=== PATIENT | male | born 1935 | race Caucasian/White ===

== ENCOUNTER 2020-03-18 07:29 | Inpatient (IN) | payer MEDICARE, SELFPAY ==
[2020-03-18] VITALS (76 sets, daily range): BP systolic 96–195; BP diastolic 42–89; PULSE 45–74; RESP 13–30; TEMP 36.6; O2SAT 90–99; BMI 26.4
--- NOTE | 2020-03-18 07:33 | XR_ITS ---
WS: [id number] Exam: XR chest 1V portable [id number] Date/Time of Exam: 03/18/2020 7:50 AM Reason For Exam: syncope No priors. The lungs are clear and fully expanded. Normal cardiomediastinal structures and bony elements for moraima hnique. Monitoring leads superimpose the chest. No pleural effusions. XR/XR chest 1V portable [id number] IMPRESSION: 1. No acute cardiopulmonary finding.
--- NOTE | 2020-03-18 07:33 | ECG_ITS ---
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 Measurements Intervals [place] Rate: 49 P: [place]: QRS: 84 QRSD: 160 T: -42 QT: 463 QTc: 419 Interpretive Statements SINUS RHYTHM COMPLETE HEART BLOCK INTRAVENTRICULAR CONDUCTION DELAY [130+ ms QRS DURATION] ST ELEVATION, CONSIDER INFERIOR INJURY [MARKED ST ELEVATION W/O NORMALLY INFLECTED T WAVE IN II/aVF] ACUTE MS No previous ECG available for comparison Electronically Signed On 03-18-2020 21:25:56 DIRECTOR NURSERY SCHOOL by Charleen Zuniga M.D. [id number] f
[2020-03-18] MEDS: heparin 5,000 unit/mL INJ 1 mL 4000 UNIT IV (07:39)
--- NOTE | 2020-03-18 07:39 | XACV_ITS ---
Ht: 180 cm Wt: 86 kg BSA: 2.09 m2 Gender: Male : 1935 Any Known Allergies: Penicillins Exam Priority: Routine Procedure(s): Procedure Description: Diagnostic procedure Procedure Description: PCI procedure Procedure Description: Drug Eluting Coronary Stent Procedure Description: PTCA Procedure Description: Miscellaneous Procedure Description: ACT Procedure Description: Coronary Angiography Diagnostic Cath Status: Emergency Diagnostic Findings * Left main artery arises from left coronary cusp. * It has distal left main 80% severe stenosis. Significant dampening of pressures with engagement of catheter. LM: Severe 80% stenosis, GUSTAVO: 3 flow. * LAD arises from left main artery.pLAD: Moderate 70% stenosis, GUSTAVO: 3 flow. Mid to distal vessel is free of significant disease.. * Left circumflex artery arises from left main artery. It has a proximal * 80% stenosis. pCIRC: Severe 80% stenosis, GUSTAVO: 3 flow. * Ramus/high OM: Moderate 70% stenosis, GUSTAVO: 3 flow. * Right coronary artery arises from right coronary cusp. * It is culprit vessel for acute ST elevation [place]. There is thrombotic occlusion of proximal to mid RCA. An old mid RCA stent is seen. Ostial to proximal RCA has 80% stenosis. . * Coronary angiography shows right dominance. PCI Status: Emergency PCI Indication: STEMI - Immediate PCI for STEMI Interventional Findings * IV heparin was administered to maintain an ACT above 250 seconds. Engaged the RCA with 6 Kiswahili JR4 guide catheter. 0.014 run-through guidewire was used to cross the proximal to mid RCA thrombotic occlusion. We used a 2.5 x 8 mm semicompliant balloon to predilate the stenosis. This was followed by placement of 3.0 x 26 mm drug-eluting stent from proximal to mid RCA. There was some residual severe in-stent restenosis in the prior mid RCA stent. A second 3.0 x 18 mm drug-eluting stent was placed from ostial to proximal RCA, overlapping with the first stent. This was postdilated using 3.0x6 mm NC balloon. The in-stent restenosis in the old mid RCA stent was treated by post dilation with 2.5 x 8 mm semicompliant balloon as the NC balloon could not cross. At this time final angiogram was performed that showed excellent stent expansion, no residual stenosis and GUSTAVO-3 flow.. * Proximal Right Coronary Artery to Mid Right Coronary Artery: 80% stenosis treated with MDT R DILLON 3.0X18 NARCISO and MDT NC EUPHORA RX [id number] BALLOON. 0% residual stenosis, GUSTAVO: 3 flow. * Mid Right Coronary Artery: 100% stenosis treated with AB TREK 2.50X8 RX BALLOON and MDT R DILLON 3.0X26 NARCISO. 0% residual stenosis, GUSTAVO: 3 flow. Conclusions 1. There is severe coronary artery disease with multivessel disease. He has residual severe coronary artery disease and left main artery, LAD, left circumflex and ramus artery.. 2. Proximal Right Coronary Artery to Mid Right Coronary Artery (culprit for acute ST elevation [place] )was treated with Drug Eluting Stent and Balloon. 3. Mid Right Coronary Artery was treated with Balloon and Drug Eluting Stent. Recommendations * Admit to CSU. * Order echocardiogram. * Continue aspirin and Plavix. * High intensity statin, and lisinopril. * Continue IV fluids. * Patient has severe residual coronary artery disease in left main, LAD, left circumflex and ramus artery. He will need evaluation for coronary artery bypass surgery. We will get the evaluation and ideally the surgery as inpatient given severity of his coronary artery disease. Interventional RX Recommendation: PCI w/o planned CABG Diagnostic RX Recommendation: PCI w/o planned CABG Anticoagulation: Heparin Pressures Phase:Rest AO : 133 / 53 ( 81 ) @ 2:03:00 AM 114 / 35 ( 64 ) @ 2:08:00 AM 136 / 68 ( 97 ) @ 2:10:00 AM 107 / 46 ( 68 ) @ 2:15:00 AM 147 / 66 ( 101 ) @ 2:17:00 AM 126 / 57 ( 85 ) @ 2:24:00 AM 123 / 44 ( 79 ) @ 2:30:00 AM 131 / 64 ( 93 ) @ 2:32:00 AM 104 / 37 ( 63 ) @ 2:42:00 AM Clinical Evaluation EBL: 5mL-10mL Procedural Details Procedure Consent Obtained. Pre-Procedure Time Out. Identified patient by full name and date of as verbalized by the patient/guarantor. Does the consent match the physician's order: N/A Emergent. Accurate & Complete Informed Consent: N/A Emergent. Inpatient/Outpatient History & Physical on Chart: N/A Emergent. If H&P is completed, is and addenduem needed: N/A Emergent; If yes, is the addendum complete: N/A Emergent. Visualize and Verify Site with Patient/Guarantor: N/A. Relevant Radiology Images available: N/A Emergent. Pre-op teaching completed and patient verbalized understanding. The risks, benefits, and alternatives of sedation and/or procedure were discussed by physician. The patient agrees to continue. Procedure started. [facility] Clinical Fraility Score: 3: Managing Well. Audio/Video Technician Indications: ACS <= 24 hours. Chest Pain Symptom Assessment: Typical Angina Symptoms. Cardiovascular Instability: No. Correct patient, site and procedure confirmed by cath team. PERRLA. Strong, equal hand classics teacher bilaterally. Lungs clear x 5 lobes. IV Site on Arrival: 22 gauge in the left anticubital. IV Fluids: 0.9% NaCl at KVO. 0 mL infused prior to cardiac cath technician. Pre Procedural Pulses: bilateral radial was 2+. Pre Procedural Pulses: bilateral dorsalis pedis was Doppled. Pre Procedural Pulses: bilateral posterior tibial was Doppled. Oxygen started at 4liters/min via nasal canula. Physician arrived. Equipment: 6F - Femoral. Cardiac Cath Pack. ACIST Manifold Kit Model BT 2000. Heparinized Saline (2 units/mL), 1000 mL bag. Kit, Micropuncture. Physician scrubbed in. Immediate Pre-Procedure Time Out. Correct Patient: N/A Emergent; Correct Procedure: N/A Emergent; Correct Site: N/A Emergent; Correct Patient Position: N/A Emergent; Correct Supplies: N/A Emergent; Dried Flammable Prep: N/A Emergent; Blood Products Available: N/A Emergent;. bilateral groins was prepped with chloroprep then draped in the usual sterile fashion. Baseline sample Acquired. HR: 51 BPM. Lidocaine 1% infiltrated to the right groin. Arterial access obtained with micropuncture set. A 5 maltese JL4 catheter in over wire. Multiple views taken of left coronary artery. Catheter out. 6 maltese JR 4 guide catheter was inserted over the wire. Inventory is CRD 6FR JR 4 GUIDE 100cm. Runthrough guidewire was advanced through the guide catheter to lesion in the prox RCA. Inflation number : 1 A AB TREK 2.50X8 RX BALLOON was prepped and advanced across the Mid RCA , then inflated to 12 LEANDRA for 0:36 seconds. Inflation number: 2 The AB TREK 2.50X8 RX BALLOON was reinflated across the Mid RCA, to 12 LEANDRA for 0:18 seconds. Balloon out. Results checked. Inflation Number : 3 A PRESTON Schuster DILLON 3.0X26 NARCISO -Lot Number# [id number] exp date 11/11/2021 was prepped and advanced across the Mid RCA. The stent was deployed at 14 LEANDRA for 0:21 seconds. Stent balloon out over wire. Results checked. MDT KEIKO Euphora RX 3.00x6MM balloon inserted. Unable to cross lesion. Balloon out over wire. [place] guidewire was advanced through the guide catheter to lesion in the mid RCA. ACT drawn. Results 203 seconds. Therapeutic limits - pre-heparin administration 90-150 seconds and monitoring heparin during a vascular procedure >250 seconds. MDT NC Euphora RX 3.00x6MM balloon inserted. Unable to cross lesion. Balloon out over wire. Inflation number: 4 The AB TREK 2.50X8 RX BALLOON was reinflated across the Mid RCA, to 16 LEANDRA for 0:23 seconds. Inflation number: 5 The AB TREK 2.50X8 RX BALLOON was reinflated across the Mid RCA, to 16 LEANDRA for 0:18 seconds. Balloon out. Results checked. Runthrough Wire out. Inflation Number : 1 A MDAnuj R DILLON 3.0X18 NARCISO -Lot Number# [id number] exp date 10/22/2021 was prepped and advanced across the Prox RCA. The stent was deployed at 14 LEANDRA for 0:34 seconds. Stent balloon out over wire. Inflation number : 2 A MDT NC EUPHORA RX 3.36X95GI BALLOON was prepped and advanced across the Prox RCA , then inflated to 12 LEANDRA for 0:20 seconds. Inflation number: 3 The MDT NC EUPHORA RX 3.00L78WJ BALLOON was reinflated across the Prox RCA, to 12 LEANDRA for 0:24 seconds. Balloon out. Results checked. [place] wire out. Guide catheter out. A 5 maltese JL4 catheter in over wire. Catheter out. ACT drawn. Results 324 seconds. Therapeutic limits - pre-heparin administration 90-150 seconds and monitoring heparin during a vascular procedure >250 seconds. Physician scrubbed out. A Suture was successful obtaining hemostatsis at the Right Femoral artery insertion site. Sheath(s) sutured into position with 2-0 silk and sterile 4x4's and Op-site applied over the site. No oozing or signs and symptoms of hematoma noted. Arterial sheath flushed and connected to tranducer and pressure bag with heparinized saline. Post Procedure: Pulses reassessed and unchanged. PERRLA. Strong, equal hand classics teacher bilaterally. No VTE prophylaxis required. Aggrastat is stopped at this time. Contrast type used: Omnipaque 300 mgI/mL, 500 mL bottle. Post-op diagnosis: STEMI. PCI Indication: STEMI. Total IV fluids: 72 mL. Medication's Wasted: Lidocaine 1% = 10 mL. Medication's Wasted: Heparin = 1000 units. Medication's Wasted: Other = aggrastat 196.9 mL. Medication's Wasted: Other = versed 1 mg. Medication's Wasted: Other = fentanyl 50 mcg. Complications: none. Estimated blood loss: 5mL-10mL. Procedure completed. Patient transferred by stretcher to CPRU. Vital chart was stopped. Medication's Wasted: Other = hydralazine 10 mg. Access Site Site: Right Femoral artery Sheath Size: 6 Fr Hemostasis Method: Suture Hemostasis Success: Successful Procedure Medications Start: 7:57 AM Stop: 7:57 AM Medication: Versed Amount: 1 mg Route: I.V. Start: 7:58 AM Stop: 7:58 AM Medication: Fentanyl Amount: 50 mcg Route: I.V. Start: 8:01 AM Stop: 8:01 AM Medication: Heparin Amount: 4000 units Route: I.V. Start: 8:10 AM Stop: 8:10 AM Medication: Aggrastat 12.5 mg/250 mL Amount: 43 ml Route: I.V. bolus Start: 8:13 AM Stop: 8:13 AM Medication: Aggrastat 12.5 mg/250 mL Amount: 15.5 ml/hr Route: I.C. Start: 8:24 AM Stop: 8:24 AM Medication: Heparin Amount: 3000 units Route: I.V. Start: 8:36 AM Stop: 8:36 AM Medication: Heparin Amount: 1000 units Route: I.V. Start: 8:59 AM Stop: 8:59 AM Medication: Hydralazine Amount: 10 mg Route: I.V. I, the attending physician, have reviewed and verified all procedure medications. Yes, all medications given per verbal order History/Risk Factors Hypertension: No Dyslipidemia: No Peripheral Arterial Disease (PAD): No Myocardial Infarction ([place]): No Obesity: No Renal Disease: No Prior Interventions PCI: No CABG: No Valve Surgery: No Report Signatures Finalized by Yousif Fields MD on 03/24/2020 11:13 AM
[2020-03-18] MEDS: aspirin 81 mg Chew Tablet 324 MG PO (07:40)
[2020-03-18] MEDS: clopidogrel 300 mg Tablet 600 MG PO (07:40)
[2020-03-18] MEDS: morphine 4 mg/mL SDV 1 mL 2 MG IVP (07:48)
[2020-03-18 07:50] LABS: Basophils # 0.1 10^3/uL (0.0-0.1); Basophils % 0.3 %; Eosinophils # 0.1 10^3/uL (0.0-0.8); Eosinophils % 0.2 %; Hematocrit 41.5 % (42.0-52.0); Hemoglobin 13.3 g/dL (11.7-16.6); Lymphocytes # 2.5 10^3/uL (0.8-4.8); Mean Corpuscular Hemoglobin 30.5 pg (28.0-34.0); Mean Corpuscular Volume 95.2 fL (80-94); Mean Platelet Volume 12.2 fL (7.4-10.4); Monocytes # 1.4 10^3/uL (0.2-0.9); Monocytes % 6.3 %; Neutrophils # 18.64 10^3/uL (1.8-7.7); Neutrophils % 81.7 %; Nucleated Red Blood Cells % 0 %; Platelet Count 174 10^3/cmm (130-400); Red Blood Count 4.36 10^6/uL (4.1-5.3); Red Cell Distribution Width 13.7 % (12.1-15.1); White Blood Count 22.8 10^3/uL (4.0-10.0)
[2020-03-18 08:05] LABS: INR 0.98 (0.8-1.2)
[2020-03-18 08:07] LABS: Partial Thromboplastin Time 27.5 SECONDS (23.9-36.7)
[2020-03-18 08:23] LABS: Alanine Aminotransferase 21 U/L (0-41); Alkaline Phosphatase 65 IU/L (40-130); Anion Gap 17.5 (5-19); Aspartate Amino Transferase 54 U/L (0-40); Blood Urea Nitrogen 24 mg/dL (8-23); Calcium 8.9 mg/dL (8.5-10.5); Carbon Dioxide 24 mmol/L (22-29); Chloride 103 mmol/L (98-107); Globulin 2.5 g/dL (1.3-4.6); Glucose 180 mg/dL (65-115); NT Pro B Type Natriuretic Pept 1921 pg/mL (0-450); Osmolality Calculated 299 mOsm/kg (285-295); Potassium 4.5 mmol/L (3.5-5.1); Sodium 140 mmol/L (136-145); Total Protein 6.5 g/dL (6.6-8.7)
[2020-03-18 08:41] LABS: Troponin(5th) Baseline 1565 ng/L (0-15)
--- NOTE | 2020-03-18 09:00 | SUR.PHASEI ---
POST PROCEDURE FLUIDS: NORMAL SALINE AT 100 ML/HR TO RUN FOR [address] GILLESPIE. NOTED. INFUSING ORDERED.
--- NOTE | 2020-03-18 09:00 | SUR.PHASEI ---
IV to left AC present from ER admit and thru cath; patent. IV to right upper chest d/c d/t bleeding at insertions site- pressure held till hemostasis.
--- NOTE | 2020-03-18 09:41 | PM.HP ---
Providers/Chief Complaint Chief Complaint: CHEST PAIN History of Present Illness Aiden Conde is a 84 year old male with past medical history of coronary artery disease status post PCI about 15 to 20 years ago in [facility], hypertension not on any medications other than aspirin presented to the emergency room with 2 to 3 hours of chest pain. According to patient he has been having chest discomfort episodes over the last several months. They had gradually been becoming worse. He not seek medical attention. He woke up at 5 AM with severe substernal chest pain with radiation to both arms. He called EMS and came to the hospital. EKG performed on admission showed ST elevations in inferior leads. Bioinformatician was activated and patient was emergently taken to the lab. Coronary angiography showed thrombotic occlusion of proximal to mid RCA. Patient also has severe multivessel disease in the left system including distal left main, proximal to mid left circumflex artery and proximal LAD. He underwent successful revascularization of his culprit RCA vessel. Patient left the Bioinformatician in a stable condition. Review of Systems Narrative: CONSTITUTIONAL: No fever chills weight loss or gain or night sweats. [] HEENT: Normocephalic, atraumatic.[] RESPIRATORY: No cough, sputum, hemoptysis or wheezing.[] CARDIOVASCULAR: Chest pain and shortness of breath, no PND, orthopnea, lower extremity edema, presyncope or syncope. [] GI: no nausea vomiting diarrhea. [] SHIPFITTER: No numbness, tingling, weakness or loss of function in any part of the body. [] MUSCULOSKELETAL: No knee or joint pain or rashes. [] Medications/Allergies Allergies Allergy/AdvReac Type Severity Reaction Status Date / Time Penicillins Allergy ALGY-Rash Verified 03/18/20 10:22 PFSH Acute PFSH: Medical History (Updated 03/18/20 @ 15:27 by Yousif Fields M.D) Coronary artery disease Hypertension STEMI (ST elevation myocardial infarction) Social History (Updated 03/18/20 @ 15:28 by Yousif Fields M.D) Smoking and tobacco status: never smoked Vitals/I&O/Wt Last Vital Signs Pulse 74 03/18/20 09:00 Resp 18 03/18/20 09:00 BP 152/89 03/18/20 09:00 Pulse Ox 94 03/18/20 09:00 Weight last 48 hrs Weight 190 lb Physical Exam Narrative: EXAM NARRATIVE: GENERAL: Patient is alert, awake and oriented x3. He is diaphoretic. [] NECK: No jugular vein distension. [] HEENT: No cyanosis. No icterus. No pallor. [] HEART: Regular S1 and S2. No murmur, rub or gallop. [] LUNGS: Clear to auscultate bilaterally. [] ABDOMEN: Soft, nontender and nondistended. Positive bowel sounds. No guarding, rebound or tenderness. [] CENTRAL NERVOUS SYSTEM: Grossly nonfocal. [] EXTREMITIES: Lower extremities with no edema bilaterally. Pulses palpable in the lower extremities, both dorsalis pedis and posterior tibial. [] Data : 03/18/20 07:39 03/18/20 07:39 A&P Assessment and plan (1) STEMI (ST elevation myocardial infarction): Status: Acute (2) Coronary artery disease: Status: Acute (3) Hypertension: Status: Acute Patient presented with acute ST elevation [place] involving RCA. Ostial to mid RCA was successfully revascularized using NARCISO x2. Continue aspirin Plavix. Order echocardiogram. Order high intensity statin therapy. Beta-isra if heart rate tolerates. IV fluids for next 12 hours given patient's creatinine was 1.5. 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 Will need further discussion regarding need and timing of CABG. If patient develops chest discomfort will initiate a drip. Attestations Medical Necessity Statement*: Care expected to cross 2 midnights. Patient presented with acute ST elevation [place] status post successful revascularization with NARCISO x2. Coding Level of Care Code Acute Motor Vehicle Lecturer for Sujata Ramires Diagnoses STEMI (ST elevation myocardial infarction) I21.3 Coronary artery disease I25.10 Hypertension I10
--- NOTE | 2020-03-18 09:54 | ECG_ITS ---
[facility] Test Date: 2020-03-18 Pat Name: Aiden Conde Department: Room: Gender: Male Alloy Weigher: : 1935 Requested By: Yousif Fields Order Number: [id number] Axel MD: Charleen Zuniga M.D. Measurements Intervals [place] Rate: 52 P: 63 [place]: 313 QRS: 40 QRSD: 152 T: -52 QT: 477 QTc: 445 Interpretive Statements SINUS BRADYCARDIA WITH FIRST DEGREE AV BLOCK INTRAVENTRICULAR CONDUCTION DELAY [130+ ms QRS DURATION] ST ELEVATION, CONSIDER INFERIOR INJURY No previous ECG available for comparison Electronically Signed On 03-18-2020 21:24:33 EMAIL MARKETING ASSISTANT by Charleen Zuniga M.D. [email or web address] specialty hospital of greenvilleFathomDBkettering health – soin [facility] center.Magento/store/OM/[id number]/[email or web address]/[id number]
--- NOTE | 2020-03-18 09:57 | SUR.PHASEI ---
MD NOTIFICATION DR GILLESPIE CALLED FOR PATIENT C/O CHEST PAIN NOT SUBSIDING. STATES THAT THE PAIN IS BETTER FROM BEFORE THE PROCEDURE BUT IT IS STILL PRESENT. PRN PAIN MEDICATION ORDERS RECEIVED WELL ORDERS FOR A 12 LEAD EKG. NOTED.
--- NOTE | 2020-03-18 10:15 | SUR.PHASEII ---
MD NOTIFICATION/ 12 LEAD EKG 12 LEAD PERFORMED ORDERED. SHOWED TO DR GILLESPIE. NO NEW ORDERS RECEIVED AT THIS TIME. MANAGE PAIN WITH PRN PAIN MEDICATION ORDERS NEEDED.
[2020-03-18] MEDS: fentaNYL 50 mcg/mL INJ 2mL 12.5 MCG IVP ×2 (10:38→21:35)
--- NOTE | 2020-03-18 11:00 | PC.NURSE ---
CHEST PAIN STILL PRESENT POST MED ASSESSMENT, WILL CONTINUE TO MONITOR.
--- NOTE | 2020-03-18 12:00 | PC.NURSE ---
PAIN STILL PRESENT. MD CALLED AND WAS GIVEN VERBAL ORDERS TO START NITRO DRIP PER PROTOCOL.
[2020-03-18 12:02] LABS: Troponin 5 2HR 5812 ng/L (0-15); Troponin 5 2HR Delta 4247 ABS# (0-10)
--- NOTE | 2020-03-18 12:06 | SUR.PHASEI ---
Lab results 2 hr trop result [id number]; delta trop of 4247
--- NOTE | 2020-03-18 12:09 | PC.NURSE ---
MD NOTIFIED OF PT COMPLAINING OF CONTINUED PAIN. PHYSICIAN GAVE VERBAL ORDER OF NITRO DRIP.
[2020-03-18 12:14] LABS: Partial Thromboplastin Time 129.5 SECONDS (23.9-36.7)
[2020-03-18] MEDS: nitroglycerin drip 50 MG/250 ML PREMIX IV (12:40)
--- NOTE | 2020-03-18 12:45 | USCV_ITS ---
Aiden Conde Age: 84 Gender: M : 1935 Exam Date: 03/18/2020 12:43 Ordering Phys: Yousif Fields M.D ([email or web address]) Technologist: Clarissa Bolanos [place] [facility] [place] [Add Site Location] Indication: STEMI BP: 127 / 65 HR: 50 Rhythm: Sinus Technical Quality: Adequate MEASUREMENTS (Male / Female) Normal Values 2D ECHO LV Diastolic Diameter PLAX 3.9 cm 4.2 - 5.9 / 3.9 - 5.3 cm LV Systolic Diameter PLAX 3.5 cm LV Chamber Size 3.0 cm IVS Diastolic Thickness 1.2 cm 0.6 - 1.0 / 0.6 - 0.9 cm IVS Systolic Thickness 1.0 cm LVPW Diastolic Thickness 2.1 cm 0.6 - 1.0 / 0.6 - 0.9 cm LVPW Systolic Thickness 2.0 cm RV Chamber Size 2.6 cm LVOT Diameter 2.0 cm LV Ejection Fraction 2D Teich 26.2 % LV Ejection Fraction MOD 2C 48.8 % LV Ejection Fraction 2C AL 48.5 % LA Diameter 2.9 cm LA Width 2.6 cm LA Height 4.4 cm RA Width 2.8 cm RA Height 4.9 cm Aorta at Sinotubular Diameter 3.2 cm M-MODE LV Diastolic Diameter MM 5.2 cm 4.2 - 5.9 / 3.9 - 5.3 cm LV Systolic Diameter MM 3.1 cm LV Ejection Fraction MM Teich 70.2 % IVS Diastolic Thickness MM 0.8 cm 0.6 - 1.0 / 0.6 - 0.9 cm IVS Systolic Thickness MM 1.0 cm LVPW Diastolic Thickness MM 1.2 cm 0.6 - 1.0 / 0.6 - 0.9 cm LVPW Systolic Thickness MM 1.2 cm Aortic Annulus Diameter 2.8 cm LA Ao Ratio MM 1.3 MV E Point Septal Separation 0.3 cm DOPPLER AV Peak Velocity 157.0 cm/s LVOT Peak Velocity 104.0 cm/s AV Area Cont Eq vti 2.2 cm squared AV Area Cont Eq pk 2.1 cm squared MV Area PHT 2.5 cm squared Mitral E to A Ratio 0.6 MV E' Velocity 32.0 cm/s Mitral E to MV E' Ratio 3.6 Mitral E to LV E' Lateral Ratio 3.3 Mitral E to LV E' Septal Ratio 4.2 TR Peak Velocity 162.5 cm/s TR Peak Gradient 10.6 mmHg TV Peak E Velocity 70.0 cm/s Right Atrial Pressure 3.0 mmHg Pulmonary Artery Systolic Pressu 13.6 mmHg PV Peak Velocity 88.0 cm/s RV Acceleration Time 0.1 s RV Ejection Time 0.3 s RV AcT/ET 0.4 FINDINGS Left Ventricle Normal left ventricular size. LV systolic function is mildly reduced with EF of 40 to 45%. There is moderate to severe hypokinesis of inferior wall.. Normal left ventricular wall thickness. Diastolic function is indeterminate. Right Ventricle The right ventricle is normal in size and function. Right Atrium The right atrium is normal in size. Left Atrium The left atrium is normal in size. Mitral Valve Structurally normal mitral valve without significant stenosis or prolapse. There is no mitral regurgitation. Aortic Valve Aortic valve is thickened. No significant aortic stenosis is present. There is no aortic regurgitation. Tricuspid Valve Not well-visualized however no gross abnormalities. Insufficient TR jet to calculate RVSP. Pulmonic Valve Not well-visualized. Pericardium Normal pericardium without effusion. Aorta Normal ascending aorta dimension. CONCLUSIONS This is a limited quality echocardiogram. LV systolic function is mildly reduced with EF of 40 to 45%. There is moderate to severe hypokinesis of inferior wall. Valvular structures are not fairly well visualized however no gross abnormalities. No comparison studies are available. Yousif Fields MD (Electronically Signed) Final Date: 19 March 2020 14:32 S
[2020-03-18] MEDS: metoprolol tartrate 25 mg Tablet PO (12:57)
--- NOTE | 2020-03-18 12:57 | SUR.PHASEI ---
ECHO Ultrasound at bedside completing echocardiogram.
--- NOTE | 2020-03-18 13:04 | SUR.PHASEI ---
pain has improved since start of nitro drip, will continue to monitor.
--- NOTE | 2020-03-18 13:14 | SUR.PHASEI ---
aptt drawn at 1110, results back at 1315- 129.5 per alee in lab.
--- NOTE | 2020-03-18 13:17 | SUR.PHASEI ---
aptt too high to pull sheath, will redraw at 1415.
--- NOTE | 2020-03-18 13:19 | SUR.PHASEI ---
Patient condition Patient reports some relief of chest discomfort from the start of Nitro gtt. Increaed to 30 mcg/ min in attempt to alleviate all pain. Will continue to monitor VSS as per flowsheet.
--- NOTE | 2020-03-18 13:33 | ECG_ITS ---
[facility] Test Date: 2020-03-18 Pat Name: Aiden Conde Department: Room: Gender: Male Audiology Director: : 1935 Requested By: Brittany Faulkner Order Number: [id number] Axel MD: Charleen Zuniga M.D. Measurements Intervals [place] Rate: 49 P: [place]: QRS: 33 QRSD: 141 T: -35 QT: 504 QTc: 455 Interpretive Statements SINUS BRADYCARDIA WITH 2ND DEGREE AV BLOCK, MOBITZ TYPE II RIGHT BUNDLE BRANCH BLOCK MODERATE T-WAVE ABNORMALITY, CONSIDER INFERIOR ISCHEMIA Compared to ECG 03/18/2020 10:10:50 Right bundle-branch block now present T-wave abnormality now present Possible ischemia now present First degree AV block no longer present Intraventricular conduction delay no longer present Electronically Signed On 03-18-2020 21:37:57 CHILD CARE ASSOCIATE by Charleen Zuniga M.D. [id number] f
--- NOTE | 2020-03-18 13:43 | SUR.PHASEI ---
pt resting comfortably in bed. no visible signs of pain.
[2020-03-18 14:22] LABS: Troponin 5 6HR 6211 ng/L (0-15); Troponin 5 6HR Delta 4646 ng/L (0-12)
--- NOTE | 2020-03-18 14:25 | SUR.PHASEI ---
6 hr trop result 6211; delta of 129.5. called dr thayer with results, no new orders at this time.
--- NOTE | 2020-03-18 15:00 | PC.NURSE ---
Report called Report given to Kailyn JEFFERS at this time, all questions answered. Pt transferred to first floor via bed at this time.
[2020-03-18 15:24] LABS: Partial Thromboplastin Time 47.5 SECONDS (23.9-36.7)
--- NOTE | 2020-03-18 17:10 | PC.NURSE ---
patient gave verbal permission to speak with Daughter Ivonne Soler. family member updated
--- NOTE | 2020-03-18 18:01 | ECG_ITS ---
[facility] Test Date: 2020-03-18 Pat Name: Aiden Conde Department: Room: 106 Gender: Male Cost Manager: : 1935 Requested By: Yousif Fields Order Number: [id number] Axel MD: Charleen Zuniga M.D. Measurements Intervals [place] Rate: 48 P: [place]: QRS: 34 QRSD: 141 T: -36 QT: 476 QTc: 429 Interpretive Statements SINUS BRADYCARDIA COMPLETE HEART BLOCK INTRAVENTRICULAR CONDUCTION DELAY [130+ ms QRS DURATION] Compared to ECG 03/18/2020 14:11:23 Right bundle-branch block no longer present T-wave abnormality no longer present Possible ischemia no longer present Electronically Signed On 03-18-2020 21:34:58 PRESS OPERATOR by Charleen Zuniga M.D. [email or web address].GiftMe/store/OM/[id number]
--- NOTE | 2020-03-18 18:02 | PC.NURSE ---
Spoke with Dr Fields related to patient PTT being 47.5 at this time instructions given to pull sheath spoke with him about patient continued chest discomfort despite nitro GTT Dr fields noted that he had multi vessel disease
[2020-03-18] MEDS: fentaNYL 50 mcg/mL INJ 2mL IVP (18:40)
[2020-03-18] MEDS: sodium chloride 0.9% 1,000 ML 100 ML IV (18:42)
--- NOTE | 2020-03-18 19:16 | PC.NURSE ---
sheath removed at this time no hematoma or bleeding noted patient tolerated well.
[2020-03-18] MEDS: atorvastatin 40 mg Tablet PO (20:22)
--- NOTE | 2020-03-18 20:28 | PC.NURSE ---
FRIDA HELD D/T HR 45. DR NUÑEZ NOTIFIED AND WANTED MEDICATION HELD.
--- NOTE | 2020-03-18 21:34 | ECG_ITS ---
[facility] Test Date: 2020-03-19 Pat Name: Aiden Conde Department: Room: 106 Gender: Male Motion Picture Set Up Worker: : 1935 Requested By: Yousif Fields Order Number: [id number] Axel MD: Yousif Fields M.D. Measurements Intervals [place] Rate: 45 P: [place]: QRS: 6 QRSD: 138 T: -33 QT: 479 QTc: 417 Interpretive Statements Complete (Third degree) heart block INTRAVENTRICULAR CONDUCTION DELAY [130+ ms QRS DURATION] INFERIOR MYOCARDIAL INFARCTION [40+ ms Q WAVE AND/OR ST/T ABNORMALITY IN II/aVF], OF INDETERMINATE AGE Compared to ECG 03/18/2020 18:33:54 Myocardial infarct finding now present Electronically Signed On 03-19-2020 15:14:13 CAREER DEVELOPMENT COORDINATOR by Yousif Fields M.D. [email or web address].[employer]/store/OM/[id number]
--- NOTE | 2020-03-18 21:52 | PC.NURSE ---
Dr. Qiu and Dr. Renteria notified of patient appearing to be in a third degree heart block on the monitor. EKG ordered. Dr. Qiu notified of patient having continuing chest pain of 4/10 with no relief from nitro drip.
--- NOTE | 2020-03-18 22:09 | PC.NURSE ---
PRN Fentanyl given for chest pain /10. Patient states his pain is now a 2/10. Dr. Qiu ordered to keep pacer pads on patient in case need of use should arise.
--- NOTE | 2020-03-18 22:55 | PC.NURSE ---
PT IS RESTING IN BED. PT C/O 3/10 CP. SAMPLE WRAPPER GAVE IVP FENTANYL. PT IS ON A NITRO GTT AT 20MCG. LOPRESSOR WAS HELD D/T LOW HR. PT IS IN A 3RD DEGREE BLOCK. WAS NOTIFIED. WILL CONTINUE TO MONITOR.
[2020-03-19] VITALS (28 sets, daily range): BP systolic 95–157; BP diastolic 42–67; PULSE 43–52; RESP 9–29; TEMP 36.6–37.4; O2SAT 91–94
[2020-03-19 03:53] LABS: Basophils # 0.1 10^3/uL (0.0-0.1); Basophils % 0.3 %; Hematocrit 36.7 % (42.0-52.0); Hemoglobin 11.7 g/dL (11.7-16.6); Lymphocytes # 2.5 10^3/uL (0.8-4.8); Lymphocytes % 13.7 %; Mean Corpuscular HGB Conc 31.9 g/dL (30.0-36.0); Mean Corpuscular Hemoglobin 30.1 pg (28.0-34.0); Mean Corpuscular Volume 94.3 fL (80-94); Mean Platelet Volume 11.7 fL (7.4-10.4); Monocytes # 1.7 10^3/uL (0.2-0.9); Monocytes % 8.9 %; Neutrophils # 14.22 10^3/uL (1.8-7.7); Neutrophils % 76.7 %; Nucleated Red Blood Cells % 0 %; Platelet Count 167 10^3/cmm (130-400); Red Blood Count 3.89 10^6/uL (4.1-5.3); Red Cell Distribution Width 14.1 % (12.1-15.1); White Blood Count 18.5 10^3/uL (4.0-10.0)
[2020-03-19 04:18] LABS: Cholesterol 137 mg/dL (0-200); HDL Cholesterol 57 mg/dL (60-100); LDL Cholesterol Calculated 61 mg/dL (50-129); LDL HDL Ratio 1.07 RATIO (0.00-3.22); Triglycerides 96 mg/dL (0-150)
[2020-03-19 04:22] LABS: Anion Gap 15.6 (5-19); Blood Urea Nitrogen 30 mg/dL (8-23); Calcium 8.3 mg/dL (8.5-10.5); Carbon Dioxide 19 mmol/L (22-29); Chloride 105 mmol/L (98-107); Glucose 137 mg/dL (65-115); Osmolality Calculated 288 mOsm/kg (285-295); Potassium 4.6 mmol/L (3.5-5.1); Sodium 135 mmol/L (136-145)
--- NOTE | 2020-03-19 04:58 | PC.NURSE ---
PT C/O CP 2-05/27. PT STILL ON A NITRO GTT AT 20MCG. SITE TO RIGHT GROIN STILL HAS PRESSURE DRESSING AND IS C/D/I. WILL CONTINUE TO MONITOR.
[2020-03-19 06:37] LABS: Glucose Point of Care 148 mg/dL (70-110)
[2020-03-19] MEDS: aspirin 81 mg EC Tablet PO (08:30)
[2020-03-19] MEDS: clopidogrel 75 mg Tablet PO (08:30)
[2020-03-19] MEDS: sodium chloride 0.9% 1,000 ML 100 ML IV ×2 (08:32→20:16)
--- NOTE | 2020-03-19 09:56 | PM.PN ---
Subjective Subjective: Interval history: Patient is feeling much better now. H EKG changes of ST elevations have resolved. E denies any complaints of chest pain, shortness of breath or palpitations. He developed complete heart block overnight. Heart rates are stable in 40-50s with normal blood pressure. Creatinine has increased further to 1.9. Vitals/I&O/Wt Last Vital Signs Temp 99.4 F 03/19/20 07:17 Pulse 45 L 03/19/20 07:17 Resp 14 03/19/20 07:17 BP 118/45 03/19/20 07:17 Pulse Ox 91 03/19/20 07:17 03/18/20 03/19/20 03/19/20 22:59 06:59 14:59 Intake Total 48.9 / 172.4 640 / 812.4 Output Total 250 / 250 400 / 650 50 / 50 Balance -201.1 / -77.6 240 / 162.4 -50 / -50 Weight last 48 hrs Weight 190 lb Physical Exam Narrative: EXAM NARRATIVE: GENERAL: Patient is alert, awake and oriented x3. [] NECK: No jugular vein distension. [] HEENT: No cyanosis. No icterus. No pallor. [] HEART: Bradycardic, Regular S1 and S2. No murmur, rub or gallop. [] LUNGS: Clear to auscultate bilaterally. [] ABDOMEN: Soft, nontender and nondistended. Positive bowel sounds. No guarding, rebound or tenderness. [] CENTRAL NERVOUS SYSTEM: Grossly nonfocal. [] EXTREMITIES: Lower extremities with no edema bilaterally. Pulses palpable in the lower extremities, both dorsalis pedis and posterior tibial. [] Data : 03/19/20 03:30 03/19/20 03:30 A&P Assessment and plan (1) STEMI (ST elevation myocardial infarction): Status: Acute (2) Coronary artery disease: Status: Acute (3) Hypertension: Status: Acute (4) Complete heart block: Status: Acute (5) YE (acute kidney injury): Status: Acute Patient presented with acute ST elevation [place] involving RCA. Ostial to mid RCA was successfully revascularized using NARCISO x2. Continue aspirin Plavix. ECHO showed mildly reduced cardiac function High intensity statin therapy. Metoprolol stopped as patient has developed complete heart block. If 3rd degree AV block does not resolve in 48 hours post revascularization, will plan on permanent pacemaker placement. Will need pacing pads on for now and if starts becoming unstable will put in temporary pacemaker. His heart rates and hemodynamics have stayed stable. Patient has received IV fluids over the last 2 days because of YE. We do not know his baseline renal function. Will monitor daily BMP. 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 Will need further discussion regarding need and timing of CABG. As patient is chest pain free now, will monitor inpatient and consult CT surgery once Dr Carmona is back on Monday. Attestations Medical Necessity Statement*: Care expected to cross 2 midnights. Patient STEMI s/p revascularization of the culprit artery. Has complete heart block now and may require temporary/permanent pacemaker. 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 Will have CT surgery evaluation. Coding Level of Care Code Acute Engineering Program Analyst for Sujata Ramires Diagnoses STEMI (ST elevation myocardial infarction) I21.3 Coronary artery disease I25.10 Hypertension I10 Complete heart block I44.2 YE (acute kidney injury) N17.9
--- NOTE | 2020-03-19 10:58 | PC.CHAP ---
Pastoral Care Encounter/Spiritual Assessment Type of Contact [x] Declined community development manager visit [] Patient/Family/Request visit [] Outpatient visit [] Follow-up visit [] Physician referral [] Code/Alert [] Routine visit [] Staff referral [] Actively dying [] Patient sleeping [] Family support [] [] Out of room [] Palliative care [] [] Receiving care in room [] Pre-surgical visit [] Trauma [] Long length of stay [] ICU visit [] Other: Relational/Emotional Strength [] Patient feels connected with others/family/visitors/staff [] Distress [] Loneliness/isolation [] Abandonment Spirituality of Patient [] Person of [place] [] Attends Rastafari of their [place] [] Believes in Prayer [] Reads Bible or Zoroastrianism materials [] There are Spiritual issues to be addressed System Technologist Interventions [] Prayer [] Active listening [] Non-anxious presence [] Spiritual/emotional support [] Crisis/trauma care [] Spiritual counseling [] Bereavement support [] Provided bereavement packet [] Provided Bible/devotional materials [] Provided toy/stuffed animal, coloring book to patient or family member [] Provided Communion [] Anointing/Secor [] Salvation [] Completed spiritual assessment [] Other: Impact on Illness or Injury [] Angry [] Fearful [] Anxious [] Often cries [] Exhaustion [] Unable to work [] Unable to attend hinduism [] Unable to walk/stand [] Unable to read [] Unable to drive [] Unable to eat/drink [] Unable to sleep [] Unable to be with family [] Patient intubated [] Other: Summary Declined community development manager visit Time spent with patient 5 mins
--- NOTE | 2020-03-19 14:20 | PC.NURSE ---
notified by Dr Fields via phone to run current orders of fluids until 1900 tonight then titrate to 75 mls per hour until 0700 then stop
--- NOTE | 2020-03-19 18:14 | ECG_ITS ---
[facility] Test Date: 2020-03-19 Pat Name: Aiden Conde Department: Room: 106 Gender: Male Moving Picture Operator: : 1935 Requested By: Yousif Fields Order Number: [id number] Axel MD: Yousif Fields M.D. Measurements Intervals [place] Rate: 55 P: 62 ME: 318 QRS: 52 QRSD: 154 T: -26 QT: 445 QTc: 426 Interpretive Statements 2:1 AV block INTRAVENTRICULAR CONDUCTION DELAY [130+ ms QRS DURATION] Compared to ECG 03/19/2020 01:30:00 Complete heart block is not present now. Myocardial infarct finding no longer present Electronically Signed On 03-20-2020 18:33:54 PERSONAL COMPANION by Yousif Fields M.D. [email or web address].[facility].[employer]/store/[id number]
--- NOTE | 2020-03-19 18:15 | PC.NURSE ---
Dr Fields on unit to assess patient instructions to obtain EKG
[2020-03-19] MEDS: acetaminophen 325 mg Tablet 650 MG PO (20:15)
[2020-03-19] MEDS: atorvastatin 40 mg Tablet PO (20:16)
[2020-03-20] VITALS (11 sets, daily range): BP systolic 139–169; BP diastolic 59–88; PULSE 44–92; RESP 16–30; TEMP 36.6–37.2; O2SAT 92–95
[2020-03-20] MEDS: acetaminophen 325 mg Tablet 650 MG PO ×2 (06:43→14:36)
[2020-03-20] MEDS: clopidogrel 75 mg Tablet PO (08:48)
[2020-03-20] MEDS: aspirin 81 mg EC Tablet PO (08:48)
[2020-03-20 10:05] LABS: Basophils # 0.1 10^3/uL (0.0-0.1); Basophils % 0.4 %; Eosinophils # 0.1 10^3/uL (0.0-0.8); Eosinophils % 0.4 %; Hematocrit 34.1 % (42.0-52.0); Hemoglobin 11.1 g/dL (11.7-16.6); Lymphocytes # 1.9 10^3/uL (0.8-4.8); Mean Corpuscular HGB Conc 32.6 g/dL (30.0-36.0); Mean Corpuscular Hemoglobin 30.6 pg (28.0-34.0); Mean Corpuscular Volume 93.9 fL (80-94); Monocytes # 0.5 10^3/uL (0.2-0.9); Monocytes % 4.1 %; Neutrophils # 8.88 10^3/uL (1.8-7.7); Neutrophils % 77.7 %; Nucleated Red Blood Cells % 0 %; Platelet Count 139 10^3/cmm (130-400); Red Blood Count 3.63 10^6/uL (4.1-5.3); Red Cell Distribution Width 14.2 % (12.1-15.1); White Blood Count 11.4 10^3/uL (4.0-10.0)
[2020-03-20] MEDS: amlodipine 5 mg Tablet PO ×2 (10:31→16:37)
[2020-03-20 11:18] LABS: Anion Gap 13.1 (5-19); Blood Urea Nitrogen 32 mg/dL (8-23); Calcium 8.3 mg/dL (8.5-10.5); Carbon Dioxide 21 mmol/L (22-29); Chloride 108 mmol/L (98-107); Glucose 149 mg/dL (65-115); Osmolality Calculated 296 mOsm/kg (285-295); Potassium 4.1 mmol/L (3.5-5.1); Sodium 138 mmol/L (136-145)
[2020-03-20] MEDS: lisinopril 2.5 mg Tablet PO (16:37)
[2020-03-20] MEDS: atorvastatin 40 mg Tablet PO (21:24)
--- NOTE | 2020-03-20 21:43 | PM.PN ---
Subjective Subjective: Interval history: Patient is doing well. He denies any chest pain, shortness of breath or palpitations. Now he has 2:1 heart block. Heart rate has improved. Creatinine has improved this AM to 1.6 from 1.9. WBC count has improved to 11. Vitals/I&O/Wt Last Vital Signs Temp 98.7 F 03/20/20 19:19 Pulse 61 03/20/20 19:19 Resp 30 H 03/20/20 19:19 BP 154/60 03/20/20 19:19 Pulse Ox 92 03/20/20 19:19 03/20/20 03/20/20 03/20/20 06:59 14:59 22:59 Intake Total 150 / 1850.5 236 / 236 120 / 356 Output Total 550 / 750 350 / 350 125 / 475 Balance -400 / 1100.5 -114 / -114 -5 / -119 Physical Exam Narrative: EXAM NARRATIVE: GENERAL: Patient is alert, awake and oriented x3. [] NECK: No jugular vein distension. [] HEENT: No cyanosis. No icterus. No pallor. [] HEART: Bradycardic, Regular S1 and S2. No murmur, rub or gallop. [] LUNGS: Clear to auscultate bilaterally. [] ABDOMEN: Soft, nontender and nondistended. Positive bowel sounds. No guarding, rebound or tenderness. [] CENTRAL NERVOUS SYSTEM: Grossly nonfocal. [] EXTREMITIES: Lower extremities with no edema bilaterally. Pulses palpable in the lower extremities, both dorsalis pedis and posterior tibial. [] Data : 03/20/20 09:44 03/20/20 09:44 A&P Assessment and plan (1) STEMI (ST elevation myocardial infarction): Status: Acute (2) Coronary artery disease: Status: Acute (3) Hypertension: Status: Acute (4) Complete heart block: Status: Acute (5) YE (acute kidney injury): Status: Acute Patient presented with acute ST elevation [place] involving RCA. Ostial to mid RCA was successfully revascularized using NARCISO x2. Continue aspirin Plavix. ECHO showed mildly reduced cardiac function High intensity statin therapy. Metoprolol stopped as patient has developed complete heart block. Patient's completeheart block has resolved and now he has 2:1 AV block. Heart rates 50-70s. Will need pacing pads on for now and if starts becoming unstable will put in temporary pacemaker. His heart rates and hemodynamics have stayed stable. Will decide if he needs permanent pacemaker if the high degree AV block doesnt resolve Patient has received IV fluids over the last 2 days because of YE. We do not know his baseline renal function. Will monitor daily BMP. 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 Will need further discussion regarding need and timing of CABG. As patient is chest pain free now, will monitor inpatient and consult CT surgery once Dr Carmona is back on Monday. Attestations Medical Necessity Statement*: Care expected to cross 2 midnights. Patient s/p acute STEMI and revascularization of RCA with NARCISO X2.Has high degree AV block that might require permanent pacemaker placement if doesnt resolve and will need CT surgery evaluation for severe left main disease Coding Level of Care Code Acute Industrial Designer for [facility] Fwanne-marie Diagnoses STEMI (ST elevation myocardial infarction) I21.3 Coronary artery disease I25.10 Hypertension I10 Complete heart block I44.2 YE (acute kidney injury) N17.9
[2020-03-20] MEDS: fentaNYL 50 mcg/mL INJ 2mL 12.5 MCG IVP (23:45)
[2020-03-21] VITALS (28 sets, daily range): BP systolic 122–203; BP diastolic 56–90; PULSE 43–100; RESP 16–34; TEMP 36.7–37.2; O2SAT 92–96
--- NOTE | 2020-03-21 00:19 | PC.NURSE ---
PT IS RESTING IN BED. PT C/O BACK PAIN. WORKERS' COMPENSATION CLAIMS EXAMINER NURSE GAVE PRN PAIN MEDICATION IVP. WILL CONTINUE TO MONITOR.
[2020-03-21 07:47] LABS: Anion Gap 15.2 (5-19); Blood Urea Nitrogen 28 mg/dL (8-23); Calcium 8.9 mg/dL (8.5-10.5); Carbon Dioxide 21 mmol/L (22-29); Chloride 106 mmol/L (98-107); Glucose 101 mg/dL (65-115); Osmolality Calculated 292 mOsm/kg (285-295); Potassium 4.2 mmol/L (3.5-5.1); Sodium 138 mmol/L (136-145)
--- NOTE | 2020-03-21 08:29 | PM.PN ---
Subjective Subjective: Interval history: Patient has been doing well. No chest pain, shortness of breath or palpitations. He walked yesterday with physical therapy. Vitals/I&O/Wt Last Vital Signs Temp 98.4 F 03/21/20 04:39 Pulse 49 L 03/21/20 06:00 Resp 21 H 03/21/20 04:39 BP 149/56 03/21/20 04:39 Pulse Ox 94 03/21/20 04:39 03/20/20 03/21/20 03/21/20 22:59 06:59 14:59 Intake Total 120 / 356 Output Total 125 / 475 300 / 775 Balance -5 / -119 -300 / -419 Physical Exam Narrative: EXAM NARRATIVE: GENERAL: Patient is alert, awake and oriented x3. [] NECK: No jugular vein distension. [] HEENT: No cyanosis. No icterus. No pallor. [] HEART: Bradycardic, Regular S1 and S2. No murmur, rub or gallop. [] LUNGS: Clear to auscultate bilaterally. [] ABDOMEN: Soft, nontender and nondistended. Positive bowel sounds. No guarding, rebound or tenderness. [] CENTRAL NERVOUS SYSTEM: Grossly nonfocal. [] EXTREMITIES: Lower extremities with no edema bilaterally. Pulses palpable in the lower extremities, both dorsalis pedis and posterior tibial. [] Data : 03/21/20 07:14 03/21/20 07:14 A&P Assessment and plan (1) STEMI (ST elevation myocardial infarction): Status: Acute (2) Coronary artery disease: Status: Acute (3) Hypertension: Status: Acute (4) Complete heart block: Status: Acute (5) YE (acute kidney injury): Status: Acute Patient presented with acute ST elevation [place] involving RCA. Ostial to mid RCA was successfully revascularized using NARCISO x2. Continue aspirin Plavix. ECHO showed mildly reduced cardiac function High intensity statin therapy. Metoprolol stopped as patient has developed complete heart block. Patient's completeheart block has resolved and now he has 2:1 AV block. Heart rates 50-70s. Will need pacing pads on for now and if starts becoming unstable will put in temporary pacemaker. His heart rates and hemodynamics have stayed stable. Will decide if he needs permanent pacemaker if the high degree AV block doesnt resolve Patient's creatinine has improved to 1.4. Will uptitrate Lisinopril. Continue amlodipine. Hold metoprolol as has heart block. 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 Will need further discussion regarding need and timing of CABG. As patient is chest pain free now, will monitor inpatient and consult CT surgery once Dr Carmona is back on Monday. Attestations Medical Necessity Statement*: Care expected to cross 2 midnights. Patient s/p revascularization for acute STEMI, has left main disease awaiting CT surgery evaluation. Also has 2:1 AV block which likely will require permanent pacemaker. Coding Level of Care Code Acute Natural Resources Extension Educator for g Fwd Diagnoses STEMI (ST elevation myocardial infarction) I21.3 Coronary artery disease I25.10 Hypertension I10 Complete heart block I44.2 YE (acute kidney injury) N17.9
[2020-03-21] MEDS: clopidogrel 75 mg Tablet PO (08:47)
[2020-03-21] MEDS: amlodipine 10 mg Tablet PO (08:47)
[2020-03-21] MEDS: lisinopril 10 mg Tablet PO (08:47)
[2020-03-21] MEDS: aspirin 81 mg EC Tablet PO (08:47)
--- NOTE | 2020-03-21 09:49 | PC.SOCIAL ---
IM follow up explained and signed. Pt verbalized understanding and has no questions. Copy left for patient
--- NOTE | 2020-03-21 10:00 | ECG_ITS ---
[facility] Test Date: 2020-03-21 Pat Name: Aiden Conde Department: Room: 106 Gender: Male Burlap Man: : 1935 Requested By: Yousif Fields Order Number: [id number] Axel MD: Yousif Fields M.D. Measurements Intervals [place] Rate: 79 P: -36 [place]: 263 QRS: -6 QRSD: 149 T: -17 QT: 388 QTc: 445 Interpretive Statements Undetermined rhythm secondary to baseline artifact RIGHT BUNDLE BRANCH BLOCK [120+ ms QRS DURATION, UPRIGHT V1, 40+ ms S IN I/aVL/V4/V5/V6] Inferior MYOCARDIAL INFARCTION [40+ ms Q WAVE AND/OR ST/T ABNORMALITY IN V3/V4], OF INDETERMINATE AGE Compared to ECG 03/19/2020 18:48:35 Right bundle-branch block now present Myocardial infarct finding now present Electronically Signed On 03-21-2020 18:05:19 FINANCIAL ADVISER by Yousif Fields M.D. [email or web address].[facility].Flit/store/[id number]
--- NOTE | 2020-03-21 15:46 | ECG_ITS ---
[facility] Test Date: 2020-03-21 Pat Name: Aiden Conde Department: Room: 106 Gender: Male Room Clerk: : 1935 Requested By: Yousif Fields Order Number: [id number] Axel MD: Yousif Fields M.D. Measurements Intervals [place] Rate: 79 P: 77 [place]: 298 QRS: -2 QRSD: 149 T: -15 QT: 403 QTc: 464 Interpretive Statements SINUS RHYTHM WITH FIRST DEGREE AV BLOCK WITH FREQUENT SUPRAVENTRICULAR PREMATURE COMPLEXES RIGHT BUNDLE BRANCH BLOCK [120+ ms QRS DURATION, UPRIGHT V1, 40+ ms S IN I/aVL/V4/V5/V6] Compared to ECG 03/21/2020 10:58:30 First degree AV block now present Electronically Signed On 03-21-2020 17:46:24 HARD ROCK MINER by Yousif Fields M.D. [email or web address].[email or web address]/[id number]
--- NOTE | 2020-03-21 15:47 | PC.NURSE ---
Pt reports of unable to breathe Pt stated he woke up and he feels like he can't clear a phlegm in his throat and can't breath. Pt looked short of breath and expiratory wheeze heard. Denies any chest pain. VS: BP-203/90 on left arm, spO2 on room air-94%. HR-91-100, 1600- BP on right arm-189/84. Dr. Fields called via voalte phone. EKG taken in room. Dr. Fieldscamfacundo in immediately at bedside. Received verbal orders read back to get portable chest xray now, Administer 40 mg of IVP Lasix once, 10 mg of Hydralazine IVP once, if pt sytolic BP sustains above 160 to start pt on Nitro Drip per protocol.
--- NOTE | 2020-03-21 15:53 | XRR_ITS ---
PROCEDURE INFORMATION: Exam: XR Chest, 1 View Exam date and time: 03/21/2020 3:54 PM Age: 84 years old Clinical indication: Shortness of breath; Additional info: SOB TECHNIQUE: Imaging protocol: XR of the chest Views: 1 view. COMPARISON: CR XR chest 1V portable [id number] 03/18/2020 7:38 AM FINDINGS: Lungs: Mild pulmonary venous congestion noted. Increased density in the retrocardiac portion of the left lower lobe, consistent with atelectasis versus infiltrate. Pleural space: Suspect small bilateral pleural effusions. No pneumothorax. Heart/Mediastinum: Mild cardiomegaly is noted. Vasculature: The thoracic aorta is mildly atherosclerotic. Bones/joints: Mild degenerative thoracic spine changes. XR/XR chest 1V portable [id number] IMPRESSION: 1. Mild cardiomegaly is noted. 2. Mild pulmonary venous congestion noted. 3. Increased density in the retrocardiac portion of the left lower lobe, consistent with atelectasis versus infiltrate. 4. Suspect small bilateral pleural effusions.
[2020-03-21 16:26] LABS: Basophils # 0.1 10^3/uL (0.0-0.1); Basophils % 0.5 %; Eosinophils # 0.3 10^3/uL (0.0-0.8); Eosinophils % 2.3 %; Hematocrit 36.6 % (42.0-52.0); Hemoglobin 11.6 g/dL (11.7-16.6); Lymphocytes % 17.5 %; Mean Corpuscular HGB Conc 31.7 g/dL (30.0-36.0); Mean Corpuscular Hemoglobin 29.7 pg (28.0-34.0); Mean Corpuscular Volume 93.8 fL (80-94); Mean Platelet Volume 12.5 fL (7.4-10.4); Monocytes # 0.7 10^3/uL (0.2-0.9); Monocytes % 6.4 %; Neutrophils # 8.16 10^3/uL (1.8-7.7); Neutrophils % 73.1 %; Nucleated Red Blood Cells % 0 %; Platelet Count 189 10^3/cmm (130-400); Red Cell Distribution Width 14.3 % (12.1-15.1); White Blood Count 11.2 10^3/uL (4.0-10.0)
[2020-03-21] MEDS: FUROsemide 10 mg/mL SDV 4mL 40 MG IVP (16:29)
[2020-03-21] MEDS: heparin 5,000 unit/mL INJ 1 mL 5000 UNIT SUBCUT (16:41)
[2020-03-21] MEDS: hyDRALAzine 20 mg/mL INJ 1 mL 10 MG IVP (16:41)
[2020-03-21] MEDS: nitroglycerin drip 50 MG/250 ML PREMIX IV (17:46)
[2020-03-21] MEDS: atorvastatin 40 mg Tablet PO (20:28)
[2020-03-22] VITALS (10 sets, daily range): BP systolic 122–148; BP diastolic 55–79; PULSE 43–90; RESP 16–25; TEMP 36.6–36.7; O2SAT 89–96
[2020-03-22] MEDS: heparin 5,000 unit/mL INJ 1 mL 5000 UNIT SUBCUT ×3 (01:25→20:33)
--- NOTE | 2020-03-22 04:21 | PC.NURSE ---
PT RESTING IN BED. PT WATCH FOOTBALL FOR MOST OF THE NIGHT. PT STATES THAT IS SOMETHING THAT HE LIKES TO DO. PT DENIES PAIN. PT STATES THAT HE WOULD LIKE TO GO ON RECORD THAT HE DISLIKES THOSE HEPARIN SHOTS. WILL CONTINUE TO MONITOR.
--- NOTE | 2020-03-22 08:37 | P.PN_ITS ---
Subjective Subjective: Interval history: Patient is doing well. No chest pain, shortness of breath or palpitations. He had an episode of shortness of breath yesterday evening. CXR showed possible infiltrates. IV lasix was given. Patient is currently on room air and breathing well. Vitals/I&O/Wt Last Vital Signs Temp 97.9 F 03/22/20 08:34 Pulse 65 03/22/20 08:34 Resp 23 H 03/22/20 08:34 BP 148/79 03/22/20 08:34 Pulse Ox 93 03/22/20 08:34 03/21/20 03/22/20 03/22/20 22:59 06:59 14:59 Output Total 1475 / 1700 75 / 1775 Balance -1475 / -1270 -75 / -1345 Physical Exam Narrative: EXAM NARRATIVE: GENERAL: Patient is alert, awake and oriented x3. [] NECK: No jugular vein distension. [] HEENT: No cyanosis. No icterus. No pallor. [] HEART: Bradycardic, Regular S1 and S2. No murmur, rub or gallop. [] LUNGS: Has basal crackles ABDOMEN: Soft, nontender and nondistended. Positive bowel sounds. No guarding, rebound or tenderness. [] CENTRAL NERVOUS SYSTEM: Grossly nonfocal. [] EXTREMITIES: Lower extremities with no edema bilaterally. Pulses palpable in the lower extremities, both dorsalis pedis and posterior tibial. [] Data : 03/22/20 09:20 03/22/20 09:20 A&P Assessment and plan (1) STEMI (ST elevation myocardial infarction): Status: Acute (2) Coronary artery disease: Status: Acute (3) Hypertension: Status: Acute (4) Complete heart block: Status: Acute (5) YE (acute kidney injury): Status: Acute Patient presented with acute ST elevation [place] involving RCA. Ostial to mid RCA was successfully revascularized using NARCISO x2. Continue aspirin Plavix. ECHO showed mildly reduced cardiac function High intensity statin therapy. Metoprolol stopped as patient complete heart block. Patient's complete heart block has resolved and now he has 2:1 AV block. Heart rates 50-70s. Will need pacing pads on for now and if starts becoming unstable will put in temporary pacemaker. His heart rates and hemodynamics have stayed stable. Will decide if he needs permanent pacemaker if the high degree AV block doesnt resolve Patient's creatinine has improved to 1.4. Continue amlodipine and lisinopril. Hold metoprolol as has heart block. IV lasix 40 mg today. 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 Will need further discussion regarding need and timing of CABG. As patient is chest pain free now, will monitor inpatient and consult CT surgery once Dr Carmona is back on Monday. Attestations Medical Necessity Statement*: Care expected to cross 2 midnights. Patient post STEMI and revascularization of the culprit artery. Has left main disease. Will have evaluation by CT surgery tomorrow. If heart block does not resolve by tomorrow, will need pacemaker evaluation as well. Requiring IV lasix as well Coding Level of Care Code Acute Food And Beverage Operations Manager for Chg Fwd Diagnoses STEMI (ST elevation myocardial infarction) I21.3 Coronary artery disease I25.10 Hypertension I10 Complete heart block I44.2 YE (acute kidney injury) N17.9
[2020-03-22] MEDS: aspirin 81 mg EC Tablet PO (08:43)
[2020-03-22] MEDS: amlodipine 10 mg Tablet PO (08:44)
[2020-03-22] MEDS: clopidogrel 75 mg Tablet PO (08:44)
[2020-03-22] MEDS: lisinopril 10 mg Tablet PO ×2 (08:45→11:46)
[2020-03-22 09:55] LABS: Basophils # 0.1 10^3/uL (0.0-0.1); Basophils % 0.7 %; Eosinophils # 0.3 10^3/uL (0.0-0.8); Eosinophils % 2.2 %; Hematocrit 42.8 % (42.0-52.0); Hemoglobin 13.8 g/dL (11.7-16.6); Lymphocytes # 2.1 10^3/uL (0.8-4.8); Mean Corpuscular HGB Conc 32.2 g/dL (30.0-36.0); Mean Corpuscular Hemoglobin 30.2 pg (28.0-34.0); Mean Corpuscular Volume 93.7 fL (80-94); Mean Platelet Volume 12.8 fL (7.4-10.4); Monocytes # 0.8 10^3/uL (0.2-0.9); Monocytes % 6.7 %; Neutrophils # 7.94 10^3/uL (1.8-7.7); Nucleated Red Blood Cells % 0 %; Platelet Count 159 10^3/cmm (130-400); Red Blood Count 4.57 10^6/uL (4.1-5.3); Red Cell Distribution Width 13.9 % (12.1-15.1); White Blood Count 11.2 10^3/uL (4.0-10.0)
[2020-03-22 10:06] LABS: Blood Urea Nitrogen 32 mg/dL (8-23); Calcium 9.4 mg/dL (8.5-10.5); Carbon Dioxide 20 mmol/L (22-29); Chloride 101 mmol/L (98-107); Glucose 133 mg/dL (65-115); Osmolality Calculated 291 mOsm/kg (285-295); Sodium 136 mmol/L (136-145)
--- NOTE | 2020-03-22 11:00 | PC.NURSE ---
Doctor rounding Dr. Fields in room to assess and round on pt. Pt is sitting up in his chair at this time. Informed Dr. of pt's coarse crackles on right lower lobe base. Pt gets short of breath upon transfer from bed to chair. Received verbal orders read back to doctor to Administer Lasix 40 mg IVP one time if creatinine remains at 1.4 to 1.6 today, administer additional dose of 10 mg Lisinopril now them 20 mg of Lisinopril daily starting tomorrow, Heparin q12hrs SQ.
[2020-03-22] MEDS: FUROsemide 10 mg/mL SDV 4mL 40 MG IVP (11:45)
--- NOTE | 2020-03-22 13:09 | PC.NURSE ---
Reinforced education on incentive spirometer use pt refused at this time
[2020-03-22] MEDS: atorvastatin 40 mg Tablet PO (20:33)
--- NOTE | 2020-03-22 20:38 | PC.NURSE ---
PT IS RESTING IN BED. PT SAID THAT HE WILL BE GLAD TO SEE DR. LEAL. HOPEFULLY HE CAN FIX IT AND I CAN GO HOME . PT DENIES PAIN. WILL CONTINUE TO MONITOR.
[2020-03-23] VITALS (9 sets, daily range): BP systolic 120–131; BP diastolic 47–60; PULSE 44–89; RESP 6–23; TEMP 36.4–37; O2SAT 93–95
--- NOTE | 2020-03-23 05:15 | PC.NURSE ---
PT IS RESTING IN BED. PT DENIES PAIN. WILL CONTINUE TO MONITOR.
[2020-03-23] MEDS: clopidogrel 75 mg Tablet PO (08:43)
[2020-03-23] MEDS: aspirin 81 mg EC Tablet PO (08:43)
[2020-03-23] MEDS: amlodipine 10 mg Tablet PO (08:43)
[2020-03-23] MEDS: lisinopril 20 mg Tablet PO (08:43)
[2020-03-23] MEDS: heparin 5,000 unit/mL INJ 1 mL 5000 UNIT SUBCUT ×2 (08:43→20:27)
--- NOTE | 2020-03-23 09:07 | PM.CONSULT ---
Providers/Reason For Consult Consulting Physican/Specialty*: Dr. Carmona, cardiothoracic surgery Reason for Consult*: Main coronary artery stenosis with recent STEMI Attending Physician: Yousif Fields M.D History of Present Illness History of Present Illness Aiden Conde is an 84 year old male admitted on March [address] elevated myocardial infarction. He underwent acute and rapid successful rescue by Dr. Fields with the intervention and stenting to the proximal mid RCA. He has severe left main coronary artery stenosis and proximal LAD stenosis. Ejection fraction is reported 40% by transthoracic echocardiogram March 18. Severe hypokinesia of the inferior wall as expected. I do note he has cardiomegaly by chest x-ray as well as a hazy border in his recent chest x-ray yesterday. Also noted to have probable small bilateral effusions and possible early infiltrative process. Received Lasix yesterday by Dr. Fields. This may represent ongoing failure. Initial creatinine 1.6, currently 1.4. Currently pain-free. He is on aspirin and Plavix. Mr. Conde had intervention to the RCA, mid vessel about 20 years ago. He did present his stent card for my review at the time of my exam. He had a PE in 2005 without clear determination of the etiology, though he states he was told it may be related to dehydration. He was on Coumadin for over 6 months. He has resided in [place] most of his life, moving to [facility] in 2004. He lost his to a CVA in 2006. Review of Systems Card: Reports: chest pain (On presentation, now pain-free.) and irregular heart rhythm (2-1 AV heart block post intervention) Resp: Reports: dyspnea (With exertion) GI: Denies: abdominal pain, nausea or vomiting Neuro: Denies: difficulty walking or dizziness Psych: Denies: anxiety or depression Meds/Allergies Home Medications and Allergies Home Medications Medication Instructions Recorded Confirmed Last Taken Type aspirin 81 mg PO DAILY 03/18/20 03/18/20 Unknown History Allergies Allergy/AdvReac Type Severity Reaction Status Date / Time Penicillins Allergy ALGY-Rash Verified 03/18/20 10:22 Current Medications Current Medications Generic Name Dose Route Start Last Admin Trade Name Freq PRN Reason Stop Dose Admin Acetaminophen 650 mg 03/18/20 15:16 03/20/20 14:36 Acetaminophen 325 Mg Tablet PO 650 mg Q6H PRN Administration MILD PAIN Amlodipine Besylate 10 mg 03/21/20 09:00 03/23/20 08:43 Amlodipine 10 Mg Tablet PO 10 mg DAILY HIRAM Administration Aspirin 81 mg 03/19/20 09:00 03/23/20 08:43 Aspirin 81 Mg Ec Tablet PO 81 mg DAILY HIRAM Administration Atorvastatin Calcium 40 mg 03/18/20 21:00 03/22/20 20:33 Atorvastatin 40 Mg Tablet PO 40 mg BEDTIME HIRAM Administration Clopidogrel Bisulfate 75 mg 03/19/20 09:00 03/23/20 08:43 Clopidogrel 75 Mg Tablet PO 75 mg DAILY HIRAM Administration Heparin Sodium (Beef Lung) 5,000 unit 03/22/20 20:45 03/23/20 08:43 Heparin 5,000 Unit/Ml Inj 1 Ml SUBCUT 5,000 unit Q12H HIRAM Administration Nitroglycerin/Dextrose 50 mg in 250 mls @ 0 mls/hr 03/18/20 12:30 03/19/20 11:30 Nitroglycerin Drip IV 0 mcg/min .Q0M HIRAM 0 mls/hr Titration Protocol Per Protocol Sodium Chloride 1,000 mls @ 100 mls/hr 03/19/20 07:45 03/19/20 20:16 Sodium Chloride 0.9% IV 100 mls/hr .Q10H HIRAM Administration Nitroglycerin/Dextrose 50 mg in 250 mls @ 0 mls/hr 03/21/20 17:30 03/22/20 11:45 Nitroglycerin Drip IV 0 mcg/min .Q0M HIRAM 0 mls/hr Titration Protocol Per Protocol Lisinopril 20 mg 03/23/20 09:00 03/23/20 08:43 Lisinopril 20 Mg Tablet PO 20 mg DAILY HIRAM Administration Metoprolol Tartrate 25 mg 03/18/20 12:50 03/18/20 20:27 Metoprolol Tartrate 25 Mg Tablet PO Not Given BID@0900,2100 [facility] PFSH Acute PFSH: Medical History (Updated 03/23/20 @ 10:12 by Lencho Carmona MD) Coronary artery disease Hypertension Pulmonary embolism STEMI (ST elevation myocardial infarction) Social History (Updated 03/23/20 @ 10:13 by Lencho Carmona MD) Smoking and tobacco status: never smoked Alcohol intake: former Vitals/I&O/Wt Last Vital Signs Temp 97.6 F 03/23/20 08:00 Pulse 89 03/23/20 08:00 Resp 21 H 03/23/20 08:00 BP 120/60 03/23/20 08:00 Pulse Ox 94 03/23/20 05:19 03/22/20 03/23/20 03/23/20 22:59 06:59 14:59 Intake Total 1000 / 1266.975 320 / 1586.975 Output Total 610 / 810 250 / 1060 Balance 390 / 456.975 70 / 526.975 Physical Exam Const: COMMON NORMALS: patient oriented x3 and alert ORIENTATION/CONSCIOUSNESS: Yes oriented to person, Yes oriented to place and Yes oriented to time HENMT: COMMON NORMALS: normocephalic HEAD & SCALP: normocephalic Neck/C-Spine: COMMON NORMALS: full ROM, supple, no JVD and No carotid bruits GENERAL: Yes trachea midline CERVICAL SPINE: Yes cervical ROM normal Chest: COMMONS NORMALS: normal inspection of the chest and normal palpation of entire chest wall Resp: COMMON NORMALS: normal respiratory effort, No use of accessory muscles, clear to auscultation bilaterally and percussion normal EFFORT & INSPECTION: Yes able to speak in complete sentences and Yes symmetric chest movement AUSCULTATION: clear to auscultation bilaterally PERCUSSION: percussion normal Cardio: COMMON NORMALS: no JVD, regular rate, regular rhythm, S1 normal heart sound present, S2 normal heart sound present, No gallops present (Cardio), No murmurs present (Cardio) and No rub (Cardio) JUGULAR VENOUS DISTENTION: no JVD RATE: regular rate RHYTHM: regular rhythm HEART SOUNDS: S1 normal heart sound present and S2 normal heart sound present PERIPHERAL PULSES: radial pulses present positive bilateral 2+ and dorsalis pedis present positive bilateral 1+ Neuro: COMMON NORMALS: patient oriented x3, no focal motor deficits and no sensory deficits noted SENSORIUM/ORIENTATION: Yes alert, Yes oriented to person, Yes oriented to place and Yes oriented to time GAIT: Yes Normal gait present Psych: COMMON NORMALS: mental status grossly normal, Normal thought process present, cooperative, normal affect and speech normal ACTIVITY/MOTOR BEHAVIOR: Yes appropriate eye contact SPEECH: Yes normal speech THOUGHT PROCESS: Normal thought process present THOUGHT CONTENT: Yes Normal thought content present MEMORY/COGNITION: Yes memory grossly intact INSIGHT: Good insight present (Psych) JUDGEMENT: Good judgement present (Psych) A&P Assessment and plan (1) Recent ST elevation myocardial infarction (STEMI) involving left main coronary artery: 84-year-old gentleman status post inferior infarction during presentation on March [address] elevations inferiorly. Successful percutaneous intervention and risk of a thrombotic RCA. Patient has a high-grade left main coronary stenosis. Post interventions developed complete heart block which is now converted to 2-1 heart block. Depressed ejection fraction of 40%, though now with some cardiomegaly and evidence of small bilateral effusions and failure, recently received Lasix. Renal insufficiency with a creatinine of 1.4, presenting with a creatinine of 1.6. Patient is currently also on aspirin and Plavix. Does reside alone and post therapy, would require inpatient rehab, which he is agreeable. He has several increasing risk factors related to surgical intervention, including advanced age, renal insufficiency, recent STEMI, depressed ejection fraction by echocardiogram, and dual antiplatelet therapy currently in progress due to recent stenting. I discussed these risk factors very frankly and in detail with Mr. Conde. He wishes to proceed with surgery. Currently, we are awaiting appropriate ICU bed availability and staffing. He remains pain-free at this time. I will proceed with preoperative evaluation in preparation to consider surgical intervention. If feasible, I would delay on pacemaker implantation until after revascularization, with the possibility that pacemaker may not be required. As it appears that ICU bed availability will not be apparent for at least 24 hours, we will proceed with saphenous vein mapping at this time, though will hold on other blood work until we can determine a definitive date for surgery. Mr. Conde is aware and appears comfortable and awaiting an appropriate time. Of course, if he would develop chest discomfort or become unstable, we would proceed in an urgent fashion, though ideally, it would be best to delay until we have appropriate intensive care bed availability and staffing. STS calculations for CABG for Mr. Conde in consideration of his comorbidities include an acute mortality risk of 5%, renal failure 3%, stroke 2%, prolonged need for ventilation 13%, reoperation 5%. Increased risk for length of stay of 8% and all cause morbidity or mortality of 20%. Status: Acute Consult Attestations Medical Necessity Statement: Severe left main coronary artery stenosis with recent presentation for acute ST elevated inferior infarction and successful rescue of a thrombotic RCA by percutaneous intervention and stenting Time Spent in Patient Care: Greater than 35 minutes Coding Level of Care Code New Pt Acute Director Audience Marketing for Chg Fwd Patient Type New History Comprehensive Exam Comprehensive Medical Decision Making High Complexity Diagnoses Recent ST elevation myocardial infarction (STEMI) involving left main coronary artery Time Spent (min) 55
[2020-03-23 10:26] LABS: Anion Gap 17.6 (5-19); Blood Urea Nitrogen 35 mg/dL (8-23); Calcium 9.3 mg/dL (8.5-10.5); Carbon Dioxide 22 mmol/L (22-29); Chloride 104 mmol/L (98-107); Glucose 127 mg/dL (65-115); Osmolality Calculated 300 mOsm/kg (285-295); Potassium 3.6 mmol/L (3.5-5.1); Sodium 140 mmol/L (136-145)
--- NOTE | 2020-03-23 10:35 | PM.PN ---
Subjective Subjective: Interval history: Patient is doing well. He denies any complaints of chest pain, shortness of breath or palpitations. Dr. Carmona has seen patient and plan is for CABG. Awaiting ICU bed availability for post CABG stay. Vitals/I&O/Wt Last Vital Signs Temp 97.6 F 03/23/20 08:00 Pulse 89 03/23/20 08:00 Resp 21 H 03/23/20 08:00 BP 120/60 03/23/20 08:00 Pulse Ox 94 03/23/20 05:19 03/22/20 03/23/20 03/23/20 22:59 06:59 14:59 Intake Total 1000 / 1266.975 320 / 1586.975 240 / 240 Output Total 610 / 810 250 / 1060 Balance 390 / 456.975 70 / 526.975 240 / 240 Physical Exam Narrative: EXAM NARRATIVE: GENERAL: Patient is alert, awake and oriented x3. [] NECK: No jugular vein distension. [] HEENT: No cyanosis. No icterus. No pallor. [] HEART: Regular S1 and S2. No murmur, rub or gallop. [] LUNGS: Clear to auscultate bilaterally. [] ABDOMEN: Soft, nontender and nondistended. Positive bowel sounds. No guarding, rebound or tenderness. [] CENTRAL NERVOUS SYSTEM: Grossly nonfocal. [] EXTREMITIES: Lower extremities with no edema bilaterally. Pulses palpable in the lower extremities, both dorsalis pedis and posterior tibial. [] Data : 03/22/20 09:20 03/23/20 09:33 A&P Assessment and plan (1) STEMI (ST elevation myocardial infarction): Status: Acute (2) Coronary artery disease: Status: Acute (3) Hypertension: Status: Acute (4) Complete heart block: Status: Acute (5) YE (acute kidney injury): Status: Acute Patient presented with acute ST elevation NV involving RCA. Ostial to mid RCA was successfully revascularized using NARCISO x2. Continue aspirin and Plavix. ECHO showed mildly reduced cardiac function High intensity statin therapy. Metoprolol stopped as patient complete heart block. Patient's complete heart block has resolved and now he has 2:1 AV block. Heart rates 50-70s. Will need pacing pads on for now and if starts becoming unstable will put in temporary pacemaker. His heart rates and hemodynamics have stayed stable. We will wait for placement of permanent pacemaker till complete revascularization as his heart block might resolve after it. Patient's creatinine has improved to 1.3. Continue amlodipine and lisinopril. Hold metoprolol as has heart block. 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 Dr. Carmona has seen patient today and plan is for CABG. Appreciate Dr. Carmona's input. He is awaiting ICU bed with ability for post CABG stay. Attestations Medical Necessity Statement*: Expected to cross 2 midnights. Patient was s/p STEMI and underwent revascularization of RCA. Also has residual left main disease. Plan is for CABG by Dr. Carmona. Coding Level of Care Code Acute Percussion Instrument Tuner for g Fwd Diagnoses STEMI (ST elevation myocardial infarction) I21.3 Coronary artery disease I25.10 Hypertension I10 Complete heart block I44.2 YE (acute kidney injury) N17.9
--- NOTE | 2020-03-23 11:30 | USCV_ITS ---
CondeAiden oswald Age: 84 Gender: M : 1935 Exam Date: 03/23/2020 17:10 Ordering Phys: Lencho Carmona MD (Andy) [email or web address] [place] Technologist: Pam Saha [place] [facility] [place]: RIGHT LEFT LOWER EXTREMITY Diameter Diameter (cm) (cm) 0.65 High Thigh 0.31 0.35 Mid Thigh 0.21 0.40 Above Knee 0.13 0.16 Below Knee 0.15 0.16 Mid Calf 0.13 0.25 Ankle 0.18 RIGHT LEFT Findings The veins were found to be easily compressible. No evidence of thrombosis. Conclusions Patent veins bilaterally with no evidence of thrombosis. The infrapopliteal veins are of small caliber bilaterally Dr Niels Melo MD [facility] (Electronically Signed) Final Date: 23 March 2020 18:20 S
--- NOTE | 2020-03-23 14:07 | DCPLANNER ---
IMM completed 03/23/20 at 7213. Copy of rights given to pt.
[2020-03-23] MEDS: chlorhexidine gluconate 4% Btl 118 mL 1 APPLIC TOPICAL (14:37)
[2020-03-23] MEDS: mupirocin oint 22 gm 1 APPLIC NASAL (17:00)
--- NOTE | 2020-03-23 18:47 | PC.NURSE ---
Shower Pt took shower and used chlorhexidine wash.
[2020-03-23] MEDS: atorvastatin 40 mg Tablet PO (20:27)
[2020-03-24] VITALS (8 sets, daily range): BP systolic 120–143; BP diastolic 48–62; PULSE 43–88; RESP 9–24; TEMP 36.6–37.1; O2SAT 95–96
--- NOTE | 2020-03-24 04:10 | PC.NURSE ---
NURSE NOTE: SHIFT SUMMARY: PT ALERT AND ORIENTED X4; MOVES ALL EXTREMITIES AND FOLLOWS COMMANDS. DENIES PAIN. HR IRREGULAR IN THE 8O'S MOST OF SHIFT. BRADYCARDIA NOTED ; AT TIMES IN THE 40'S -WHEN PT SLEEPING. ALL VS AND ASSESSMENTS CHARTED. NO DISTRESS NOTED AT THIS TIME. WILL CONTINUE TO MONITOR.
--- NOTE | 2020-03-24 05:24 | XRR_ITS ---
PROCEDURE INFORMATION: Exam: XR Chest, 1 View Exam date and time: 03/24/2020 6:19 AM Age: 84 years old Clinical indication: Pre-operative exam; Cardiovascular screening and respiratory screening exam; Additional info: Preop cabg/recent diuresis TECHNIQUE: Imaging protocol: XR of the chest Views: 1 view. COMPARISON: CR (CHEST, ) 03/21/2020 4:09 PM FINDINGS: Lungs: Minor interstitial opacities of lower lungs. Pleural space: Unremarkable. No pleural effusion. No pneumothorax. Heart/Mediastinum: Cardiomegaly. Bones/joints: Degenerative change of thoracic spine. Other findings: No overt edema. XR/XR chest 1V portable [id number] IMPRESSION: 1. Cardiomegaly. 2. Minor interstitial scarring , atelectasis or small residual infiltrates lower lungs with resolved pulmonary venous congestion.
--- NOTE | 2020-03-24 05:28 | P.PN_ITS ---
Subjective Subjective: Interval history: No complaints this morning. States rested well last night. Denies chest pain. Vitals/I&O/Wt Last Vital Signs Temp 98 F 03/24/20 04:31 Pulse 43 L 03/24/20 04:31 Resp 9 L 03/24/20 04:31 BP 134/48 03/24/20 04:31 Pulse Ox 96 03/24/20 04:31 03/23/20 03/23/20 03/24/20 14:59 22:59 06:59 Intake Total 1240 / 1240 100 / 1340 Output Total 160 / 160 300 / 460 450 / 910 Balance 1080 / 1080 -300 / 780 -350 / 430 Physical Exam Const: COMMON NORMALS: patient oriented x3 Chest: COMMONS NORMALS: normal inspection of the chest and normal palpation of entire chest wall Resp: COMMON NORMALS: normal respiratory effort, No retractions, No use of accessory muscles and clear to auscultation bilaterally AUSCULTATION: clear to auscultation bilaterally Cardio: COMMON NORMALS: No murmurs present (Cardio); negative for regular rate RATE: abnormal rate and bradycardic BRUITS: no carotid bruits GI: COMMON NORMALS: Normal to inspection, nondistended, normoactive bowel sounds present, Soft to palpation and non-tender PALPATION: Yes Soft to palpation Extremity: COMMON NORMALS: no clubbing, cyanosis or edema Neuro: COMMON NORMALS: patient oriented x3, no focal motor deficits and no sensory deficits noted Data : 03/22/20 09:20 03/23/20 09:33 A&P Assessment and plan (1) Recent ST elevation myocardial infarction (STEMI) involving left main coronary artery: Mr. Conde appears to be stable though he is with noted bradycardia into the upper 30s while sleeping, asymptomatic. Due to lack of ICU bed availability, surgery has been delayed. I am going to proceed with scheduling for CABG on March 26, as apparently, there is lack of appropriate anesthesia for scheduling tomorrow. At present, it appears ICU bed availability will be adequate for surgery on . We will initially plan for surgery vascularization and delay on permanent pacemaker implantation to assess if there is rhythm recovery after revascularization. If not, we will proceed with permanent dual-lead pacemaker implantation prior to discharge from CABG if there are no substantial complications with revascularization. I discussed this very frankly with Mr. Conde and he is in agreement. As stated previously, obviously, if he becomes unstable or with ongoing chest pain, we will proceed in a urgent fashion with CABG, though from a staffing and bed availability standpoint, it would be most advantageous if we could schedule electively for March 26. I greatly appreciate Dr. Fields's oversight and medical management. Status: Acute Attestations Medical Necessity Statement*: Left main coronary stenosis status post inferior wall STEMI with RCA stenting Coding Level of Care Code Acute Youth Services Specialist for Sujata Fwanne-marie Diagnoses Recent ST elevation myocardial infarction (STEMI) involving left main coronary artery
--- NOTE | 2020-03-24 08:13 | PC.RESP ---
Pt instructed on use of IS, achieved 1500 in one breathe. Pt not cooperative with this therapist.
[2020-03-24] MEDS: chlorhexidine gluconate 0.12% Btl 473 mL 15 ML MUCOUS MEM ×2 (08:33→17:51)
[2020-03-24] MEDS: aspirin 81 mg EC Tablet PO (08:33)
[2020-03-24] MEDS: amlodipine 10 mg Tablet PO (08:33)
[2020-03-24] MEDS: heparin 5,000 unit/mL INJ 1 mL 5000 UNIT SUBCUT ×2 (08:33→20:02)
[2020-03-24] MEDS: clopidogrel 75 mg Tablet PO (08:33)
[2020-03-24] MEDS: lisinopril 20 mg Tablet PO (08:33)
[2020-03-24] MEDS: mupirocin oint 22 gm 1 APPLIC NASAL ×2 (08:34→17:52)
[2020-03-24] MEDS: chlorhexidine gluconate 4% Btl 118 mL 1 APPLIC TOPICAL (08:35)
--- NOTE | 2020-03-24 10:17 | P.PN_ITS ---
Subjective Subjective: Interval history: Denies any complaints of chest pain, shortness of breath or palpitations. Plan is for CABG to be performed on 03/26/2020 based on availability of ICU bed and anesthesia team. Heart rate stays stable most of the times but is secondary to PACs. Underlying rhythm is 2:1 AV block with heart rate dropping to 30s at times. Vitals/I&O/Wt Last Vital Signs Temp 98 F 03/24/20 04:31 Pulse 56 L 03/24/20 08:10 Resp 18 03/24/20 08:10 BP 134/48 03/24/20 04:31 Pulse Ox 95 03/24/20 08:10 03/23/20 03/24/20 03/24/20 22:59 06:59 14:59 Intake Total 100 / 1340 Output Total 300 / 460 450 / 910 Balance -300 / 780 -350 / 430 Physical Exam Narrative: EXAM NARRATIVE: GENERAL: Patient is alert, awake and oriented x3. [] NECK: No jugular vein distension. [] HEENT: No cyanosis. No icterus. No pallor. [] HEART: Regular S1 and S2. No murmur, rub or gallop. [] LUNGS: Clear to auscultate bilaterally. [] ABDOMEN: Soft, nontender and nondistended. Positive bowel sounds. No guarding, rebound or tenderness. [] CENTRAL NERVOUS SYSTEM: Grossly nonfocal. [] EXTREMITIES: Lower extremities with no edema bilaterally. Pulses palpable in the lower extremities, both dorsalis pedis and posterior tibial. [] Data : 03/22/20 09:20 03/23/20 09:33 A&P Assessment and plan (1) STEMI (ST elevation myocardial infarction): Status: Acute (2) Coronary artery disease: Status: Acute (3) Hypertension: Status: Acute (4) Complete heart block: Status: Acute (5) YE (acute kidney injury): Status: Acute Patient presented with acute ST elevation [place] involving RCA. Ostial to mid RCA was successfully revascularized using NARCISO x2. Continue aspirin and Plavix. ECHO showed mildly reduced cardiac function High intensity statin therapy. Metoprolol stopped as patient complete heart block. Patient's complete heart block has resolved and now he has 2:1 AV block. Heart rates 50-70s. Will need pacing pads on for now and if starts becoming unstable will put in temporary pacemaker. His heart rates and hemodynamics have stayed stable. We will wait for placement of permanent pacemaker till complete revascularization as his heart block might resolve after it. Patient's creatinine has improved to 1.3. Continue amlodipine and lisinopril. Hold metoprolol as has heart block. 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 Dr. Carmona has seen patient today and plan is for CABG. Appreciate Dr. Carmona's input. Likely CABG on Mar 26 as anesthesia and ICU bed will be available by then. Attestations Medical Necessity Statement*: Care expected to cross 2 midnights. Patient had inferior wall STEMI, has severe multivessel disease in the left system including Left main artery for which he is awaiting CABG, likely on . Coding Level of Care Code Acute Paperboard Boxes Estimator for [facility] Fwd Diagnoses STEMI (ST elevation myocardial infarction) I21.3 Coronary artery disease I25.10 Hypertension I10 Complete heart block I44.2 YE (acute kidney injury) N17.9
[2020-03-24 12:44] LABS: Basophils # 0.1 10^3/uL (0.0-0.1); Basophils % 0.8 %; Eosinophils # 0.3 10^3/uL (0.0-0.8); Eosinophils % 3.5 %; Hematocrit 42.8 % (42.0-52.0); Hemoglobin 13.9 g/dL (11.7-16.6); Lymphocytes # 2.3 10^3/uL (0.8-4.8); Lymphocytes % 24.1 %; Mean Corpuscular HGB Conc 32.5 g/dL (30.0-36.0); Mean Corpuscular Volume 92.2 fL (80-94); Mean Platelet Volume 11.3 fL (7.4-10.4); Monocytes # 0.7 10^3/uL (0.2-0.9); Monocytes % 7.3 %; Neutrophils # 6.14 10^3/uL (1.8-7.7); Neutrophils % 63.7 %; Nucleated Red Blood Cells % 0 %; Platelet Count 319 10^3/cmm (130-400); Red Blood Count 4.64 10^6/uL (4.1-5.3); Red Cell Distribution Width 13.5 % (12.1-15.1); White Blood Count 9.7 10^3/uL (4.0-10.0)
[2020-03-24 13:11] LABS: INR 1.04 (0.8-1.2)
[2020-03-24 13:12] LABS: Partial Thromboplastin Time 28.6 SECONDS (23.9-36.7)
[2020-03-24 13:23] LABS: Alanine Aminotransferase 116 U/L (0-41); Albumin Level 3.6 g/dL (3.5-5.2); Alkaline Phosphatase 75 IU/L (40-130); Anion Gap 15.7 (5-19); Aspartate Amino Transferase 70 U/L (0-40); Blood Urea Nitrogen 37 mg/dL (8-23); Calcium 9.1 mg/dL (8.5-10.5); Carbon Dioxide 23 mmol/L (22-29); Chloride 101 mmol/L (98-107); Globulin 4.1 g/dL (1.3-4.6); Glucose 83 mg/dL (65-115); Osmolality Calculated 290 mOsm/kg (285-295); Potassium 3.7 mmol/L (3.5-5.1); Sodium 136 mmol/L (136-145); Thyroid Stimulating Hormone 4.13 uIU/mL (0.27-4.20); Total Bilirubin 0.7 mg/dL (0.15-1.2); Total Protein 7.7 g/dL (6.6-8.7)
[2020-03-24 14:10] LABS: Free T4 Free Thyroxine 1.31 ng/dL (0.82-1.77)
--- NOTE | 2020-03-24 16:21 | PM.MISC ---
Miscellaneous Note Note: Mr. Conde remains pain-free today. He remains agreeable to plans for CABG on March 26. We have learned that a significant other who he resides with has become gravely ill and is currently mechanically ventilated in an outside facility and has an expected poor outcome. I have also learned that Mr. Conde is relatively estranged from his children. His mindset still appears to be positive at least from what I can interpret with his interactions with me. We are going to continue with our routine preoperative preparations for planned CABG.
--- NOTE | 2020-03-24 18:00 | PC.NURSE ---
patient up to shower. patient used chlorhexidine wash
[2020-03-24] MEDS: atorvastatin 40 mg Tablet PO (20:02)
[2020-03-25] VITALS (9 sets, daily range): BP systolic 127–158; BP diastolic 43–63; PULSE 45–81; RESP 18–23; TEMP 35.8–36.8; O2SAT 95–99
--- NOTE | 2020-03-25 06:01 | P.PN_ITS ---
Subjective Subjective: Interval history: Uneventful night. No chest pain. Patient states she rested well last night. Remains in 2-1 AV block. Chest x-ray from yesterday reveals mostly resolution of pulmonary congestion. Still has cardiomegaly however. Depressed ejection fraction noted. Bilateral lower extremity saphenous vein mapping reveals best conduit will be in the thighs. Vein appears to be below average size from the knee distal. Vitals/I&O/Wt Last Vital Signs Temp 98.3 F 03/25/20 04:26 Pulse 50 L 03/25/20 04:26 Resp 21 H 03/25/20 04:26 BP 158/56 03/25/20 04:26 Pulse Ox 95 03/25/20 04:26 03/24/20 03/24/20 03/25/20 14:59 22:59 06:59 Intake Total 720 / 720 360 / 1080 120 / 1200 Output Total 100 / 100 300 / 400 300 / 700 Balance 620 / 620 60 / 680 -180 / 500 Physical Exam Resp: COMMON NORMALS: normal respiratory effort and clear to auscultation bilaterally EFFORT & INSPECTION: Yes able to speak in complete sentences and Yes symmetric chest movement AUSCULTATION: clear to auscultation bilaterally Cardio: COMMON NORMALS: S1 normal heart sound present; negative for regular rate and negative for regular rhythm RATE: abnormal rate and bradycardic RHYTHM: abnormal rhythm and abnormal rhythm HEART SOUNDS: S1 normal heart sound present Extremity: COMMON NORMALS: no clubbing, cyanosis or edema Data : 03/24/20 12:30 03/24/20 12:30 A&P Assessment and plan (1) Recent ST elevation myocardial infarction (STEMI) involving left main coronary artery: Will plan to proceed with CABG tomorrow with apparent ICU bed availability and adequate anesthesia staff. Betasept shower x2 today. Continue incentive spirometry and activity. I again discussed details and risk of surgery. Increased risk profile related to age, recent STEMI, left main stenosis, depressed ejection fraction, and dual platelet therapy were discussed again. He wishes to proceed with plans for surgery. I do expect he may have a greater than usual protracted course and particularly challenging early postop period. He is aware. I will seek the medical expertise of Dr. Fields and our colleagues in postop management. Status: Acute Attestations Medical Necessity Statement*: Recent STEMI with left main and proximal LAD coronary artery stenosis Time Spent in Patient Care: 16 - 35 minutes Coding Level of Care Code Acute Certified Pest Control Technician for [employer] Fwd Exam Expanded Problem Focused Diagnoses Recent ST elevation myocardial infarction (STEMI) involving left main coronary artery
[2020-03-25] MEDS: aspirin 81 mg EC Tablet PO (08:48)
[2020-03-25] MEDS: amlodipine 10 mg Tablet PO (08:48)
[2020-03-25] MEDS: lisinopril 20 mg Tablet PO (08:48)
[2020-03-25] MEDS: chlorhexidine gluconate 0.12% Btl 473 mL 15 ML MUCOUS MEM ×2 (08:49→17:35)
[2020-03-25] MEDS: chlorhexidine gluconate 4% Btl 118 mL 1 APPLIC TOPICAL (08:49)
[2020-03-25] MEDS: mupirocin oint 22 gm 1 APPLIC NASAL ×2 (08:49→17:35)
[2020-03-25 09:03] LABS: Add Urine Microscopic? NO
[2020-03-25 09:22] LABS: Bilirubin Urine Neg (Negative); Blood Urine Neg (Negative); Glucose Urine UA Norm (Normal); Ketones Urine Negative (Negative); Leukocyte Esterase Urine Negative (Negative); Nitrate Urine Negative (Negative); Protein Urine Neg (Negative); Urine Appearance Clear (CLEAR); Urine Color Yellow (Yellow); Urobilinogen Urine Norm (Negative)
--- NOTE | 2020-03-25 10:11 | DCPLANNER ---
IMM completed with pt on 03/25/20 @ 8429. Copy of rights given to pt.
--- NOTE | 2020-03-25 11:12 | ANES.PREANE2 ---
Pre-Anesthetic Assessment Pre-Anesthetic Assessment: Height/Weight: Height 1.8 m Weight 86.183 kg Temp Pulse Resp BP Pulse Ox 96.4 F L 47 L 18 130/47 96 03/25/20 10:59 03/25/20 10:59 03/25/20 10:59 03/25/20 10:59 03/25/20 10:59 Preop Diagnosis: Left main coronary stenosis/Status post STEMI Proposed Procedure: Operation Date: 03/18/20 08:00 Proposed Procedures p Cardiac Catheterization(Not Applicable) - Yousif Fields M.D Operation Date: 03/26/20 07:00 Proposed Procedures p CABG(Not Applicable) - Lencho Carmona MD Familial anesthetic complications: Slept for 4 days after being given thiopental many years ago Was Beta Ana María taken within 24 hours: Yes Exam: Pre-Anes Outpt Exam: alert, oriented x 3, clear to auscultation bilaterally and regular rate & rhythm Additional Exam Findings (including area of procedure): 2:1 AV block Airway: MP: 3 Dentition: Chipped CV/HEM: CV/HEM: CAD and HTN Comments: STEMI, redued ejection fraction Anesthetic Plan: ASA status: 4E Anesthesia: General Other: A-line, central line, PAC (consider heart block), [place] Risk of > 500 ml blood loss (7ml/kg in children): No Meds/Allergies Current Medications: Current Medications Generic Name Dose Route Start Last Admin Trade Name Freq PRN Reason Stop Dose Admin Acetaminophen 650 mg 03/18/20 15:16 03/20/20 14:36 Acetaminophen 32 5 Mg Tablet PO 650 mg Q6H PRN Administration MILD PAIN Amlodipine Besylat e 10 mg 03/21/20 09:00 03/25/20 08:48 Amlodipine 10 Mg Tablet PO 10 mg DAILY HIRAM Administration Aspirin 81 mg 03/19/20 09:00 03/25/20 08:48 Aspirin 81 Mg Ec Tablet PO 81 mg DAILY HIRAM Administration Atorvastatin Calci um 40 mg 03/18/20 21:00 03/24/20 20:02 Atorvastatin 40 Mg Tablet PO 40 mg BEDTIME HIRAM Administration Chlorhexidine Gluc michelle 1 applic 03/23/20 11:45 03/25/20 08:49 Chlorhexidine Gl uconate 4% Btl 118 Ml TOPICAL 1 unit DAILY HIRAM Administration Chlorhexidine Gluc michelle 15 ml 03/24/20 09:00 03/25/20 08:49 Chlorhexidine Gl uconate 0.12% Btl 473 Ml MUCOUS MEM 15 ml BID HIRAM Administration Nitroglycerin/Dext christine 50 mg in 250 mls @ 0 mls/hr 03/18/20 12:30 03/19/20 11:[address] ip IV 0 mcg/min .Q0M HIRAM 0 mls/hr Titration Protocol Per Protocol Nitroglycerin/Dext christine 50 mg in 250 mls @ 0 mls/hr 03/21/20 17:30 03/22/20 11:[address] ip IV 0 mcg/min .Q0M HIRAM 0 mls/hr Titration Protocol Per Protocol Lisinopril 20 mg 03/23/20 09:00 03/25/20 08:48 Lisinopril 20 Mg Tablet PO 20 mg DAILY HIRAM Administration Metoprolol Tartrat e 25 mg 03/18/20 12:50 03/18/20 20:27 Metoprolol Tartr ate 25 Mg Tablet PO Not Given BID@0900,2100 HIRAM Mupirocin 1 applic 03/23/20 18:00 03/25/20 08:49 Mupirocin Oint 2 2 Gm NASAL 1 applic BID HIRAM Administration Mupirocin 1 applic 03/24/20 09:00 03/25/20 08:50 Mupirocin Oint 2 2 Gm NASAL Not Given BID HIRAM PFSH Anesthesia PFSH: Medical History (Updated 03/23/20 @ 17:50 by Yousif Fields M.D) Coronary artery disease Hypertension Pulmonary embolism STEMI (ST elevation myocardial infarction) Social History (Updated 03/23/20 @ 10:13 by Lencho Carmona MD) Smoking and tobacco status: never smoked Alcohol intake: former Data Anesthesia CBC & Chem 7: 03/24/20 12:30 03/24/20 12:30 Other Labs: Laboratory Results - last 48 hr 03/24/20 03/24/20 03/24/20 12:30 12:30 12:30 WBC 9.7 RBC 4.64 Hgb 13.9 Hct 42.8 MCV 92.2 MCH 30.0 MCHC 32.5 RDW 13.5 Plt Count 319 MPV 11.3 H Neut % (Auto) 63.7 Lymph % (Auto) 24.1 [place] % (Auto) 7.3 Eos % (Auto) 3.5 Baso % (Auto) 0.8 Neut # (Auto) 6.14 Lymph # (Auto) 2.3 [place] # (Auto) 0.7 Eos # (Auto) 0.3 Baso # (Auto) 0.1 Nucleated RBC % (auto) 0 Nucleated RBCs # 0.0 PT 13.90 INR 1.04 APTT 28.6 Sodium 136 Potassium 3.7 Chloride 101 Carbon Dioxide 23 Anion Gap 15.7 BUN 37 H Creatinine 1.4 H GFR Calculation Not Reportable Glucose 83 Calculated Osmolality 290 Calcium 9.1 Total Bilirubin 0.7 Direct Bilirubin 0.20 AST 70 H ALT 116 H Alkaline Phosphatase 75 Total Protein 7.7 Albumin 3.6 Globulin 4.1 TSH 4.13 Free T4 1.31 Urine Color Urine Appearance Urine pH Ur Specific Mull[place] Urine Protein Urine Glucose (UA) Urine Ketones Urine Blood Urine Nitrate Urine Bilirubin Urine Urobilinogen Ur Leukocyte Esterase Blood Type Rho(D) Type Antibody Screen Crossmatch 03/24/20 03/25/20 12:30 08:30 WBC RBC Hgb Hct MCV MCH MCHC RDW Plt Count MPV Neut % (Auto) Lymph % (Auto) [place] % (Auto) Eos % (Auto) Baso % (Auto) Neut # (Auto) Lymph # (Auto) [place] # (Auto) Eos # (Auto) Baso # (Auto) Nucleated RBC % (auto) Nucleated RBCs # PT INR APTT Sodium Potassium Chloride Carbon Dioxide Anion Gap BUN Creatinine GFR Calculation Glucose Calculated Osmolality Calcium Total Bilirubin Direct Bilirubin AST ALT Alkaline Phosphatase Total Protein Albumin Globulin TSH Free T4 Urine Color Yellow Urine Appearance Clear Urine pH 5.0 Ur Specific [place] 1.020 Urine Protein Neg Urine Glucose (UA) Norm Urine Ketones Negative Urine Blood Neg Urine Nitrate Negative Urine Bilirubin Neg Urine Urobilinogen Norm Ur Leukocyte Esterase Negative Blood Type A Positive Rho(D) Type Positive Antibody Screen Negative Crossmatch See Detail Cardiac Studies: No Data to Display
--- NOTE | 2020-03-25 19:10 | PC.NURSE ---
patient showered twice today using chlorhexidine wash.
--- NOTE | 2020-03-25 19:11 | PC.NURSE ---
patient is shaved.
[2020-03-25] MEDS: atorvastatin 40 mg Tablet PO (19:40)
--- NOTE | 2020-03-25 19:40 | PC.NURSE ---
Dr. Sweeney wanted nurse to check on covid PCR results. Lab was called to see if results were back yet since test was taken on 03/24/20, lab stated, When they are resulted they will be in the chart.
--- NOTE | 2020-03-25 19:44 | PC.NURSE ---
Addendum entered by Anupama Coleman RN 03/26/20 03:53: *chlorhexidine wash* Original Note: Patient showered at this time using Betasept per order.
--- NOTE | 2020-03-25 20:53 | PM.PN ---
Subjective Subjective: Interval history: Patient is doing well. Denies complaints of chest pain, shortness of breath or palpitations. Still has 2:1 AV block. Vitals/I&O/Wt Last Vital Signs Temp 98.3 F 03/25/20 20:34 Pulse 69 03/25/20 20:34 Resp 19 H 03/25/20 20:34 BP 129/63 03/25/20 20:34 Pulse Ox 96 03/25/20 20:34 03/25/20 03/25/20 03/25/20 06:59 14:59 22:59 Intake Total 120 / 1200 480 / 480 260 / 740 Output Total 300 / 700 300 / 300 300 / 600 Balance -180 / 500 180 / 180 -40 / 140 Physical Exam Narrative: EXAM NARRATIVE: GENERAL: Patient is alert, awake and oriented x3. [] NECK: No jugular vein distension. [] HEENT: No cyanosis. No icterus. No pallor. [] HEART: Regular S1 and S2. No murmur, rub or gallop. [] LUNGS: Clear to auscultate bilaterally. [] ABDOMEN: Soft, nontender and nondistended. Positive bowel sounds. No guarding, rebound or tenderness. [] CENTRAL NERVOUS SYSTEM: Grossly nonfocal. [] EXTREMITIES: Lower extremities with no edema bilaterally. Pulses palpable in the lower extremities, both dorsalis pedis and posterior tibial. [] Data : 03/24/20 12:30 03/24/20 12:30 A&P Assessment and plan (1) STEMI (ST elevation myocardial infarction): Status: Acute (2) Coronary artery disease: Status: Acute (3) Hypertension: Status: Acute (4) Complete heart block: Status: Acute (5) YE (acute kidney injury): Status: Acute Patient presented with acute ST elevation [place] involving RCA. Ostial to mid RCA was successfully revascularized using NARCISO x2. Continue aspirin and Plavix. ECHO showed mildly reduced cardiac function High intensity statin therapy. Metoprolol stopped as patient complete heart block. Patient's complete heart block has resolved and now he has 2:1 AV block. Heart rates 50-70s. Will need pacing pads on for now and if starts becoming unstable will put in temporary pacemaker. His heart rates and hemodynamics have stayed stable. We will wait for placement of permanent pacemaker till complete revascularization as his heart block might resolve after it. Patient's creatinine has improved to 1.4. Continue amlodipine and lisinopril. Hold metoprolol as has heart block. 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 Also has severe prox LCx disease, ramus and prox LAD stenosis. Dr. Carmona has seen patient and plan is for CABG tomorrow. Appreciate Dr. Carmona's input. Attestations Medical Necessity Statement*: Care expected to cross 2 midnights. Patient is s/p RCA revascularization with NARCISO x2. Plan for cabg tomorrow as patient has severe multivessel residual disease including left main disease. Coding Level of Care Code Acute Design Maintenance Engineer for [facility] Fwd Diagnoses STEMI (ST elevation myocardial infarction) I21.3 Coronary artery disease I25.10 Hypertension I10 Complete heart block I44.2 YE (acute kidney injury) N17.9
[2020-03-26] VITALS (68 sets, daily range): BP systolic 96–141; BP diastolic 42–88; PULSE 41–101; RESP 14–17; TEMP 36.6–37.2; O2SAT 95–100
--- NOTE | 2020-03-26 00:22 | ECG_ITS ---
[facility] Test Date: 2020-03-26 Pat Name: Aiden Conde Department: Room: 106 Gender: Male Job Setter: : 1935 Requested By: Yousif Fields Order Number: [id number] Axel MD: Charleen Zuniga M.D. Measurements Intervals [place] Rate: 43 P: 18 CO: 288 QRS: 30 QRSD: 153 T: -30 QT: 490 QTc: 416 Interpretive Statements SINUS BRADYCARDIA WITH FIRST DEGREE AV BLOCK WITH OCCASIONAL SUPRAVENTRICULAR PREMATURE COMPLEXES INTRAVENTRICULAR CONDUCTION DELAY [130+ ms QRS DURATION] Compared to ECG 03/21/2020 16:01:04 Intraventricular conduction delay now present Sinus rhythm no longer present Right bundle-branch block no longer present Electronically Signed On 03-27-2020 13:57:19 DIGITAL CIRCUIT DESIGNER by Charleen Zuniga M.D. [id number]
--- NOTE | 2020-03-26 05:00 | PC.NURSE ---
Dr. Carmona notified of COVID test results still pending. Dr. Carmona stated that COVID test is negative, it just isn't showing in the computer yet. Patient removed from isolation precautions.
--- NOTE | 2020-03-26 05:11 | PM.PN ---
Subjective Subjective: Interval history: Rested reasonably well last night. Denies any chest pain or dyspnea. Remains with 2-1 AV block with some PACs. I counseled with Mr. Conde again last night concerning surgery. Unfortunately, his significant other and he has had to be involved with arrangements. Despite these emotional challenges and stressors, he still appears to be positive in relation to his upcoming surgery this morning. Vitals/I&O/Wt Last Vital Signs Temp 98 F 03/26/20 04:36 Pulse 41 L 03/26/20 04:36 Resp 17 03/26/20 04:36 BP 128/42 03/26/20 04:36 Pulse Ox 95 03/26/20 04:36 03/25/20 03/25/20 03/26/20 14:59 22:59 06:59 Intake Total 480 / 480 260 / 740 100 / 840 Output Total 300 / 300 600 / 900 Balance 180 / 180 -340 / -160 100 / -60 Physical Exam Resp: COMMON NORMALS: normal respiratory effort, No retractions, No use of accessory muscles and clear to auscultation bilaterally EFFORT & INSPECTION: Yes able to speak in complete sentences AUSCULTATION: clear to auscultation bilaterally Cardio: COMMON NORMALS: negative for regular rate and negative for regular rhythm PALPATION: normal PMI RATE: abnormal rate and bradycardic RHYTHM: abnormal rhythm Extremity: COMMON NORMALS: no clubbing, cyanosis or edema Data : 03/24/20 12:30 03/24/20 12:30 A&P Assessment and plan (1) Recent ST elevation myocardial infarction (STEMI) involving left main coronary artery: We will plan to proceed with CABG this morning. Preop evaluation been completed. I have again reviewed details and risk of surgery Mr. Conde. He appears to have a clear understanding and is eager to proceed. Status: Acute Attestations Medical Necessity Statement*: Left main coronary stenosis with recent inferior STEMI status post rescue of acute thrombosed RCA by Dr. Fields Time Spent in Patient Care: less than 15 minutes Coding Level of Care Code Acute Eviction Specialist for [facility] Fwd Diagnoses Recent ST elevation myocardial infarction (STEMI) involving left main coronary artery
[2020-03-26] MEDS: chlorhexidine gluconate 4% Btl 118 mL 1 APPLIC TOPICAL (05:19)
[2020-03-26] MEDS: mupirocin oint 22 gm 1 APPLIC NASAL (05:19)
[2020-03-26 05:20] LABS: Glucose Point of Care 89 mg/dL (70-110)
[2020-03-26] MEDS: chlorhexidine gluconate 0.12% Btl 473 mL 15 ML MUCOUS MEM ×2 (05:20→19:36)
[2020-03-26] MEDS: sodium chloride 0.9% 1,000 ML 30 ML IV (06:40)
[2020-03-26] MEDS: vancomycin 1,000 MG in sodium chloride 0.9% 250 ML 250 MG IV ×2 (06:40→13:30)
--- NOTE | 2020-03-26 08:27 | XR_ITS ---
WS: [id number] Portable AP supine chest, 03/26/2020 Clinical Data: POST-OP CABG Comparison: Portable chest, 03/24/2020. Findings: The endotracheal tube, [place] catheter, right internal jugular venous catheter, left lorna st tube and monitor leads are in good position. The heart remains enlarged. The pulmonary vascularity is slightly increased. There are mediastinal tubes present. Midline sternotomy sutures are seen. XR/XR chest 1V portable [id number] Impression: Satisfactory post cardiac surgery chest.
--- NOTE | 2020-03-26 08:28 | PC.OT ---
Patient states family will call when available, not to disturb them otherwise. Dr. Zahra contreras.
[2020-03-26] MEDS: vancomycin 1,000 MG SDV 2000 MG IRRIGATION (08:35)
[2020-03-26] MEDS: heparin, porcine 1,000 unit/mL INJ 10 mL 1750 UNIT IRRIGATION (08:37)
[2020-03-26] MEDS: sodium bicarbonate 1 mEq/mL SDV 50mL 0.7 MEQ IRRIGATION (08:38)
--- NOTE | 2020-03-26 10:26 | SUR.OPER ---
pt on pump at 1025
--- NOTE | 2020-03-26 10:32 | P.PN_ITS ---
Subjective Subjective: Interval history: Patient is s/p CABG performed today. Had MEZA to LAD, SVG to ramus and SVG to OM. Patient is intubted. He has temporary pacemaker in place and is currently being paced at 80bpm. On turning the pacer down, he has underlying 2:1 block. His blood pressure drops down with lower heart rates. Vitals/I&O/Wt Last Vital Signs Temp 98 F 03/26/20 04:36 Pulse 48 L 03/26/20 05:31 Resp 17 03/26/20 04:36 BP 128/42 03/26/20 04:36 Pulse Ox 95 03/26/20 04:36 03/25/20 03/26/20 03/26/20 22:59 06:59 14:59 Intake Total 260 / 740 100 / 840 290 / 290 Output Total 600 / 900 Balance -340 / -160 100 / -60 290 / 290 Physical Exam Const: OTHER: Intubated HENMT: COMMON NORMALS: normocephalic HEAD & SCALP: normocephalic Resp: COMMON NORMALS: normal respiratory effort Cardio: COMMON NORMALS: regular rate (Regular rate with pacing) Extremity: COMMON NORMALS: no pedal edema Urinary Catheter Management^: Arce: Cath Placed During This Visit: yes Urinary Catheter Date of Insertion: 03/26/20 Urinary Catheter Time of Insertion: 07:16 Data : 03/27/20 03:31 03/27/20 03:31 A&P Assessment and plan (1) STEMI (ST elevation myocardial infarction): Status: Acute (2) Coronary artery disease: Status: Acute (3) Hypertension: Status: Acute (4) Complete heart block: Status: Acute (5) YE (acute kidney injury): Status: Acute (6) Status post aorto-coronary artery bypass graft: Status: Acute Patient presented with acute ST elevation [place] involving RCA. Ostial to mid RCA was successfully revascularized using NARCISO x2. Patient had severe left main artery stenosis/LAD/LCx and Ramus stenosis. He underwent successful revascularization with CABGX3 by Dr Carmona today. He is stable right now. Continue aspirin and Plavix. ECHO showed mildly reduced cardiac function High intensity statin therapy. Metoprolol stopped as patient complete heart block. Patient's complete heart block has resolved and now he has 2:1 AV block. Can wait post CABG for 2-3 days and if heart block does not resolve, will need permanent pacemaker placement Creatinine improved to 1.1 Plan for extubtion per CT surgery team Attestations Medical Necessity Statement*: Caare expected to cross 2 midnights. Patient is s/p CABG today. Will need continued inpatient stay for recovery and possible permanent pacemaker placement Coding Level of Care Code Acute Summer Associate for [facility] Fwd Diagnoses STEMI (ST elevation myocardial infarction) I21.3 Coronary artery disease I25.10 Hypertension I10 Complete heart block I44.2 YE (acute kidney injury) N17.9 Status post aorto-coronary artery bypass graft Z95.1
--- NOTE | 2020-03-26 10:57 | SUR.OPER ---
Daughter called via phone, update given and will be calling back about 230-3.
[2020-03-26 10:59] LABS: Hematocrit 22.3 % (42.0-52.0); Hemoglobin 7.2 g/dL (11.7-16.6)
--- NOTE | 2020-03-26 12:50 | SUR.OPER ---
1240 pt is off bypass, icu notified
[2020-03-26 13:32] LABS: Coronavirus Test Green County Not Detected
--- NOTE | 2020-03-26 15:03 | SUR.OPER ---
1503 pts daughter called and was given an update by this nurse. She denied needing a phone call from Dr Sweeney to update on pt condition as she was going back to work and would call back later coleen.
[2020-03-26] MEDS: albumin 12.5 GM/250 ML VIAL IV ×2 (15:52→17:15)
[2020-03-26] MEDS: propofol 1,000 MG/100 ML INJ 5.2 MG IV (16:02)
--- NOTE | 2020-03-26 16:04 | ECG_ITS ---
[facility] Test Date: 2020-03-26 Pat Name: Aiden Conde Department: Room: ICU10 Gender: Male Heel Nail Rasper: : 1935 Requested By: Lencho Carmona Order Number: [id number] Axel MD: Yousif Fields M.D. Measurements Intervals [place] Rate: 87 P: UT: QRS: -3 QRSD: 130 T: -25 QT: 424 QTc: 512 Interpretive Statements SINUS RHYTHM WITH 2ND DEGREE AV BLOCK, MOBITZ TYPE II RIGHT BUNDLE BRANCH BLOCK [120+ ms QRS DURATION, UPRIGHT V1, 40+ ms S IN I/aVL/V4/V5/V6] Compared to ECG 03/26/2020 04:20:42 Right bundle-branch block now present Sinus bradycardia no longer present First degree AV block no longer present Intraventricular conduction delay no longer present Electronically Signed On 03-27-2020 17:26:43 MEDIA CLERK by Yousif Fields M.D. [id number]
[2020-03-26 16:09] LABS: ABG PH Result 7.44 (7.35-7.45); Arterial Blood Gas Hematocrit 29.6 % (42-52); Base Excess ABG -2.5 mmol/L (-2.0-2.0); Blood Gas Allen Test Pos; Blood Gas Operator Identificat BD; Blood Gas Sample Site aline; Blood Gas Sample Type Arterial
--- NOTE | 2020-03-26 16:26 | P.OP_ITS ---
Operative Report Date of procedure: March 26, 2020 Pre-op Diagnosis: Left main coronary stenosis/Status post STEMI Post-op diagnosis: same Post-op Findings: Diffuse subacute pericarditis Procedure Done: 1. Coronary artery bypass grafting x3 (1 artery and 2 veins) utilizing in situ left internal mammary artery to the left anterior descending artery, reverse saphenous vein graft aorta to the obtuse marginal branch of the circumflex artery, reverse saphenous vein graft aorta to the ramus artery. #2. Endoscopic saphenous vein harvesting of the greater saphenous vein from the right and left thighs. Pathology: none sent Surgeon: Lencho Carmona Anesthesia: General Complications: None Findings: Saphenous vein was of average quality and size in the thigh bilaterally and small distally. Left internal mammary artery tapered rather small distally but carried good flow. All target vessels were heavily diseased. There was diffuse subacute pericarditis, most probably related to his recent STEMI. Condition: critical Disposition: ICU Brief History: Mr. Conde is an 84-year-old gentleman who originally presented with acute inferior STEMI and underwent successful rescue of a acutely thrombosed RCA by Dr. Fields on March 18. He was found at that time to also have high-grade left main and proximal LAD disease. Post intervention, he developed heart block and subsequently 2-1 AV conduction. He has remained pain- free. Due to bed availability, surgery vascularization was delayed until today. Increased risk related to his recent STEMI, advanced age, moderate renal insufficiency, depressed ejection fraction, and ongoing dual antiplatelet therapy were carefully discussed in relation to CABG. He wished to proceed. Appropriate consents have been reviewed and signed. Procedure: Details and risks of the surgery were carefully and frankly explained to the patient. He has no immediate family available. Particular risks of this surgery carefully reviewed \included the possibility of , stroke, heart attack, major bleeding, infection, pneumonia, pain, organ failure, failure to benefit, early closure of the bypass grafts, prolonged hospital stay and subsequent need for further procedures. Increased risks for complications secondary to advanced age, recent STEMI, depressed ejection fraction, renal insufficiency, and dual antiplatelet therapy were carefully reviewed. Elton stated understanding of these increased risks. All questions were answered and appropriate consents were reviewed and signed. Preoperative education for the patient included both written and video materials. He wished to proceed with plans for attempted surgical revascularization for severe coronary artery bypass. PROCEDURE: Preoperative evaluation was obtained from our Anesthesia colleagues and adequate IVs were confirmed. The patient was then taken to the Operating Room Suite where general anesthesia was induced. Appropriate invasive monitoring lines were placed, including large bore peripheral IVs, central line, Earle-Jair catheter, Arce catheter and associated monitoring leads. After careful positioning on the Operating Room table, Mr. Conde was subsequently sterilely prepped and draped. Saphenous vein was harvested by endoscopic technique from the right and left thighs. Branches were secured with ligature and clips and the vein was extracted from the tunnel without tension. It was then flushed with a Heparin and albumin solution and prepared for grafting. Vein harvest sites were irrigated, platelet poor plasma infused into the tunnel and port sites closed with 3-0 and 4-0 Vicryl Plus suture. Simultaneously with vein harvesting, a median sternotomy was created utilizing a #10 scalpel blade with hemostasis controlled with cautery. After reaching the sternal table, the sternum was divided with a reciprocating saw. Bleeding was controlled with cautery and judicious use of bone wax. Following this, the left chest wall was elevated with a Rultract retractor. The left internal mammary artery was dissected free with branches being secured with clips and cautery. The distal end was left intact. After harvesting of the mammary artery, a left pleural chest tube was then placed. The left chest wall was then lowered and moistened antibiotic-soaked laparotomy pads were placed in the wound, followed by an Ankeney retractor. The sternum was then and the pericardium opened and secured with stay sutures. There is noted to be diffuse and rather intense subacute pericarditis, presumably related to his recent STEMI. After inspection, 2-0 pledgeted Ethibond sutures were placed at cannulation sites, at which time the patient was fully heparinized. Following this, the left internal mammary artery was taken down from its distal attachment, flushed with Papaverine solution, prepared for grafting and brisk flow confirmed. A soft bulldog was applied distally. Next, the heart was cannulated with a 22-Bengali aortic cannula, two-stage venous cannula and aortic root vent. Mr. Conde was subsequently placed on cardiopulmonary bypass and cooled systemically to 34 degrees. Aortic cross-clamp was then carefully placed and 4 degree Celsius cold blood cardioplegia was administered through the aortic root in antegrade fashion. Prompt diastolic arrest was obtained. Left ventricular decompression was confirmed. The heart was cooled systemically with iced saline with an insulation pad in place to protect the phrenic nerve. Throughout the cross-clamp period, at 20-30 minute intervals, antegrade blood cardioplegia was administered to maintain asystole. We then inspected the cardiac surface and coronary anatomy. Despite the rather intense pericarditis, we were able to rather quickly visualize potential target vessels. Additionally, with rotation and elevation for exposure of the lateral aspect of the cardiac surface, identified the OMB branch of the circumflex. Vessels opened up and quite thickened. Nearly 2 mm in size. Saphenous vein was anastomosed distally in end-to-side fashion with 7-0 Prolene suture and proximal medial 4 mm aortotomy with 5-0 Prolene suture. Next, we turned our attention to the ramus artery. It was approximately 1.5 mm in size. It was opened up and a second portion of vein was anastomosed distally in a end-to-side fashion with 7-0 Prolene suture in approximately 2 4 mm aortotomy with 5-0 Prolene suture. With the rewarming phase of bypass continuing, the left internal mammary artery was brought through a left anterior pericardial window into the field. The LAD was opened up in its mid one-third and was approximately 1.75 mm in size. The MEZA was then anastomosed to the LAD with a running 7-0 Prolene suture. It should be noted that all distal coronary anastomoses were performed over the appropriate size coronary shunt which was removed prior to securing the distal suture line. Following this, aortic cross-clamp was released and de-airing maneuvers were performed through the aortic root vent, as well as being confirmed by transesophageal echocardiography. Dobutamine at 3 mcg per kilogram per minute was administered with good chronotropic and inotropic affect. The heart returned to spontaneous rhythm and I elected to place in DDD mode at 80 bpm. After adequate recovery from the cross-clamp period and confirmation of cardiac stability, he was weaned from bypass without difficulty. Venous cannula was removed. Heparin was reversed with Protamine and confirmed by measurement of activated clotting time. Given his post procedure treatment with dual antiplatelet therapy, I elected to transfuse 2 units of pheresis platelets. The heart was then decannulated and cannulation sites were oversewn as required. Pacing wires were placed and brought through the skin and secured. Radiopaque markers were placed on the vein grafts at the level of aorta. Two mediastinal drains were placed and connected to Pleur-evac suction. Next, we spent quite a bit of time carefully inspecting the chest cavity for bleeding and controlling as needed with suture and cautery. The wound was carefully irrigated and hemostasis was confirmed. Ankeney retractor was removed and sponge and needle count was correct. The sternum was then reapproximated very carefully with interrupted #7 stainless steel wire with Surgicel strips used beneath the sternal table. Fascia was closed with #1 Vicryl suture with the next layers being closed with 2-0 and 3-0 suture. The skin was reapproximated carefully in a subcuticular manner. Sterile dressings were applied, followed by a vacuum-assisted dressing. The patient was carefully removed from the operating room table and transferred to the Intensive Care Unit. His daughter from [place] have been in contact with the operating team by phone and was updated regularly as well as at completion of the procedure. Dr. Fields was notified of our operative findings and procedure details.
[2020-03-26 16:31] LABS: Basophils # 0.1 10^3/uL (0.0-0.1); Basophils % 0.3 %; Eosinophils % 0.2 %; Hematocrit 26.5 % (42.0-52.0); Hemoglobin 8.6 g/dL (11.7-16.6); Lymphocytes # 2.2 10^3/uL (0.8-4.8); Mean Corpuscular HGB Conc 32.5 g/dL (30.0-36.0); Mean Corpuscular Hemoglobin 30.3 pg (28.0-34.0); Mean Corpuscular Volume 93.3 fL (80-94); Mean Platelet Volume 10.6 fL (7.4-10.4); Monocytes # 1.6 10^3/uL (0.2-0.9); Monocytes % 8.2 %; Neutrophils # 15.33 10^3/uL (1.8-7.7); Neutrophils % 78.6 %; Nucleated Red Blood Cells % 0 %; Platelet Count 251 10^3/cmm (130-400); Red Blood Count 2.84 10^6/uL (4.1-5.3); White Blood Count 19.5 10^3/uL (4.0-10.0)
[2020-03-26 16:45] LABS: INR 1.46 (0.8-1.2)
[2020-03-26 16:46] LABS: Partial Thromboplastin Time 28.5 SECONDS (23.9-36.7)
[2020-03-26 16:50] LABS: Blood Urea Nitrogen 26 mg/dL (8-23); Calcium 7.6 mg/dL (8.5-10.5); Carbon Dioxide 21 mmol/L (22-29); Chloride 114 mmol/L (98-107); Glucose 155 mg/dL (65-115); Magnesium 2.9 mg/dL (1.7-2.3); Osmolality Calculated 310 mOsm/kg (285-295); Sodium 146 mmol/L (136-145)
[2020-03-26 17:00] LABS: Anion Gap 15.9 (5-19); Potassium 4.9 mmol/L (3.5-5.1)
[2020-03-26] MEDS: fentaNYL 50 mcg/mL INJ 2mL IVP (18:41)
[2020-03-26] MEDS: aspirin 81 mg Chew Tablet PO (19:07)
--- NOTE | 2020-03-26 19:27 | PC.NURSE ---
Mediastinal X2.
--- NOTE | 2020-03-26 19:35 | ANE.PACU2 ---
Inpatient post-anesthesia follow up: Airway intact: No Vital signs: Temperature 98 F Pulse Rate [Monito r] 48 Pulse Rate 97 Respiratory Rate 16 Blood Pressure [Ri ght Arm] 120/46 Blood Pressure 96/51 Pulse Oximetry 99 Oxygen Delivery Me thod [ Room Air Current Rate & Del toan] Oxygen Delivery Me thod Mechanical Ventila tion Oxygen Flow Rate 4 Fraction of Inspir ed Oxygen 50 Hydration adequate: Yes Nausea and vomiting: No Pain level: 1 Mental status: Altered
[2020-03-26] MEDS: sodium chloride 0.9% 1,000 ML 75 ML IV (19:39)
[2020-03-26] MEDS: insulin regular-human 250 UNIT in sodium chloride 0.9% 250 ML IV (19:54)
[2020-03-26] MEDS: nitroglycerin drip 50 MG/250 ML PREMIX IV (19:56)
--- NOTE | 2020-03-26 20:17 | PC.NURSE ---
Patient into ICU via bed with surgery crew at 15:52, placed on monitor, report received from Michael Leiva CRNA and Dr. Berkowitz. Patient resting in bed. Intubated with fio2 50, TV 600, PEEP-8, PS 10 Left 18G IV intact. RIJ, Gary & Cortis, and Right Radial Art line in place at patent. Patient received on 3 of Dobutamine, HR noted to be tachy, Dobutamine titrated off in response to this finding with consideration to CO and CI. Albumin given X2 this shift in response to hypotension as evidenced by decrease in MAP. Verbal instructions received from Dr. Sweeney to give 2 of calcium in response to ionized calcium of 1.09, administer one unit of blood in response to H&H 26.5 and 8. Patient started on propofol for sedation shortly after being brought into ICU. ET tube 8.0 24 at the teeth. Patient noted to have some PACs initially. Dr. Araujo advanced SWAN in response to these findings. PACs resolved after this. Patient not on pacemaker at admission to ICU but did require pacer to be started at around 1700. Dr. Fields rounded and requested pacemaker be turned down. Notified Donnie of drop in MAP occurring when pacer decreased. Instructions to attempt to get pacemaker down to 35. Unsuccessful due to drop in MAP. Zahra came to round. Pacer turned back up to original setting of 80 and patient is tolerating well. Patient received fentanyl one time this shift in response to pain.
--- NOTE | 2020-03-26 20:42 | PC.NURSE ---
Blood verified with two RNs at bedside. This RN and Ade Abbasi verified. Blood started at 181.
[2020-03-26] MEDS: atorvastatin 40 mg Tablet PO (20:46)
[2020-03-26 22:08] LABS: Basophils % 0.2 %; Hematocrit 29.2 % (42.0-52.0); Hemoglobin 9.7 g/dL (11.7-16.6); Lymphocytes % 7.5 %; Mean Corpuscular HGB Conc 33.2 g/dL (30.0-36.0); Mean Corpuscular Volume 90.4 fL (80-94); Mean Platelet Volume 10.8 fL (7.4-10.4); Monocytes # 0.7 10^3/uL (0.2-0.9); Monocytes % 5.3 %; Neutrophils # 10.83 10^3/uL (1.8-7.7); Neutrophils % 86.1 %; Nucleated Red Blood Cells % 0 %; Platelet Count 227 10^3/cmm (130-400); Red Blood Count 3.23 10^6/uL (4.1-5.3); Red Cell Distribution Width 14.3 % (12.1-15.1); White Blood Count 12.6 10^3/uL (4.0-10.0)
[2020-03-26 22:30] LABS: Anion Gap 13.5 (5-19); Blood Urea Nitrogen 26 mg/dL (8-23); Calcium 8.5 mg/dL (8.5-10.5); Carbon Dioxide 21 mmol/L (22-29); Chloride 113 mmol/L (98-107); Glucose 194 mg/dL (65-115); Magnesium 2.7 mg/dL (1.7-2.3); Osmolality Calculated 306 mOsm/kg (285-295); Potassium 4.5 mmol/L (3.5-5.1); Sodium 143 mmol/L (136-145)
[2020-03-26 23:59] LABS: Glucose Point of Care 143 mg/dL (70-110)
[2020-03-26 23:59] LABS: Glucose Point of Care 167 mg/dL (70-110)
[2020-03-26 23:59] LABS: Glucose Point of Care 157 mg/dL (70-110)
[2020-03-26 23:59] LABS: Glucose Point of Care 155 mg/dL (70-110)
[2020-03-26 23:59] LABS: Glucose Point of Care 172 mg/dL (70-110)
[2020-03-26 23:59] LABS: Glucose Point of Care 166 mg/dL (70-110)
[2020-03-26 23:59] LABS: Glucose Point of Care 146 mg/dL (70-110)
[2020-03-26 23:59] LABS: Glucose Point of Care 120 mg/dL (70-110)
[2020-03-27] VITALS (71 sets, daily range): BP systolic 96–149; BP diastolic 46–84; PULSE 78–83; RESP 10–29; TEMP 36.5–37.2; O2SAT 30–98
[2020-03-27] MEDS: propofol 1,000 MG/100 ML INJ 15.5 MG IV (00:13)
[2020-03-27] MEDS: DOBUTamine drip 500 MG/250 ML PREMIX 6.5 MG IV (00:30)
[2020-03-27] MEDS: fentaNYL 50 mcg/mL INJ 2mL IVP ×3 (01:23→21:41)
[2020-03-27] MEDS: oxyCODONE-APAP 5-325 mg Tablet PO ×4 (03:17→20:13)
--- NOTE | 2020-03-27 03:29 | PC.NURSE ---
Sedation turned off, patient awakens. Reports pain to back. RT at bedside, placed patient on CPAP. With RN and nurse at bedside calming and coaching patient respiratory rate remains 29-35. Will nod head yes and no to questions asked but will not open eyes when asked to, patient just shakes head no. Repositioned for comfort. Oxycodone given per OG tube, propofol restarted at 10mcg/kg/min. Will retry again later to awaken and extubate.
[2020-03-27 04:06] LABS: INR 1.26 (0.8-1.2)
[2020-03-27 04:07] LABS: Partial Thromboplastin Time 35.1 SECONDS (23.9-36.7)
[2020-03-27 05:23] LABS: ABG PCO2 25.8 mmHg (35-45); ABG PH Result 7.55 (7.35-7.45); Alveolar-Arterial Oxygen Gradi 15.2 mmHg (5-10); Arterial Blood Gas Hematocrit 41.1 % (42-52); Base Excess ABG 1.4 mmol/L (-2.0-2.0); Blood Gas Sample Site Brachial, right; Blood Gas Sample Type Arterial; Carboxyhemoglobin 0.2 %THgb (0.4-20.1); HCO3 ABG 22.5 mmol/L (22-26); HGB O2 Sat 94.3 % (95-100); Ionized Calcium Level - ABG 1.2 mmol/L (1.1-1.4); Methemoglobin 0.9 % (0.4-1.5); Oxygen Device VENT; Oxygen Saturation ABG 95.4; PO2 ABG 64.7 mmHg (80.0-100.0); Potassium Level - ABG 3.9 mmol/L (3.5-5.0); Total Hemoglobin 13.4 g/dL (14-18)
[2020-03-27 05:28] LABS: Anion Gap 14.1 (5-19); Blood Urea Nitrogen 25 mg/dL (8-23); Calcium 8.4 mg/dL (8.5-10.5); Carbon Dioxide 21 mmol/L (22-29); Chloride 115 mmol/L (98-107); Glucose 113 mg/dL (65-115); Glucose Fasting 113 mg/dL (74-106); Magnesium 2.8 mg/dL (1.7-2.3); Osmolality Calculated 307 mOsm/kg (285-295); Potassium 4.1 mmol/L (3.5-5.1); Sodium 146 mmol/L (136-145)
--- NOTE | 2020-03-27 06:00 | XR_ITS ---
WS: [id number] Portable AP semiupright chest, 03/27/2020 Clinical Data: POD#1 s/p cabg Comparison: Portable chest, 03/26/2020 Findings: The endotracheal tube, right internal jugular vein venous catheter, [place]-Jair catheter, lef t chest tube, mediastinal tubes and monitor leads remain the same. The pulmonary vascularity is less congested. The heart size is normal. XR/XR chest 1V portable [id number] Impression: 1. Clearing of pulmonary vascular congestion. 2. No change in multiple tubes and catheters.
--- NOTE | 2020-03-27 06:00 | ECG_ITS ---
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 Measurements Intervals [place] Rate: 80 P: -74 AZ: 162 QRS: 59 QRSD: 180 T: -53 QT: 493 QTc: 569 Interpretive Statements ELECTRONIC ATRIAL PACEMAKER ELECTRONIC VENTRICULAR PACEMAKER ABNORMAL RHYTHM ECG INTERPRETATION BASED ON A DEFAULT AGE OF 40 YEARS Compared to ECG 03/26/2020 16:31:05 Sinus rhythm no longer present Right bundle-branch block no longer present Electronically Signed On 03-27-2020 17:23:48 COUNTER SALES PERSON by Yousif Fields M.D. [id number]
--- NOTE | 2020-03-27 06:11 | PM.PN ---
Subjective Subjective: Interval history: Postop day #1 status post CABG x3. Uneventful night. Currently remaining paced in DDD mode at 80 bpm as his heart rate does drop down into the 40s without pacing and there is a drop in his index with this. With pacing, cardiac index running about 1.8-2.2. Chest of output less than 200 cc since return from surgery yesterday. His chest x-ray is actually quite clear. Intake and output is up about 1 L. Vancomycin dosing per our pharmacy colleagues. Last creatinine was 1.0. He is awake, a bit agitated, though responding appropriately to nurses. Ventilator weaning in progress. FiO2 at 30% though his PO2 is a bit low. Received his first postop dose of aspirin approximately 4 hours postop. Plavix to be reinstituted this morning. Vitals/I&O/Wt Last Vital Signs Temp 98.6 F 03/26/20 21:15 Pulse 80 03/27/20 05:48 Resp 14 03/27/20 05:30 BP 131/63 03/27/20 05:30 Pulse Ox 96 03/27/20 05:30 03/26/20 03/26/20 03/27/20 14:59 22:59 06:59 Intake Total 290 / 290 902.281 / 1192.281 261.293 / 1453.574 Output Total 675 / 675 426 / 1101 Balance 290 / 290 227.281 / 517.281 -164.707 / 352.574 Weight last 48 hrs Weight 218 lb 11.2 oz Physical Exam Chest: COMMONS NORMALS: normal inspection of the chest and normal palpation of entire chest wall OTHER: Surgical dressings and support lines in position. Chest wall stable. Cardio: COMMON NORMALS: regular rate (With pacing.) RATE: regular rate (With pacing.) Extremity: COMMON NORMALS: no clubbing, cyanosis or edema (Warm to touch, consistent with good perfusion) Urinary Catheter Management^: Arce: Cath Placed During This Visit: yes Urinary Catheter Date of Insertion: 03/26/20 Urinary Catheter Time of Insertion: 07:16 Data : 03/26/20 22:00 03/27/20 03:31 A&P Assessment and plan (1) Status post aorto-coronary artery bypass graft: Postop day #1 status post CABG x3 Plan: Continue ventilator weaning. I will give albumin bolus as I feel he will be volume dependent related to his prior inferior infarction. We will reinstitute Lipitor in addition to continuing aspirin and Plavix. Hold on beta-isra due to his heart block. If sinus rhythm does not return in the next 2 to 3 days, we should consider permanent pacemaker implantation first part of the week if Dr. Fields concurs. I greatly appreciate his oversight and recommendations. CBC, BMP, chest x-ray in a.m. Status: Acute Attestations Medical Necessity Statement*: Postop day #1 status post CABG Time Spent in Patient Care: 16 - 35 minutes Coding Level of Care Code Acute Senior Gl Accountant for Chg Fwd Diagnoses Status post aorto-coronary artery bypass graft Z95.1
[2020-03-27] MEDS: albumin 12.5 GM/250 ML VIAL IV (06:23)
[2020-03-27 07:12] LABS: Basophils # 0.1 10^3/uL (0.0-0.1); Basophils % 0.4 %; Eosinophils % 0.1 %; Hematocrit 27.2 % (42.0-52.0); Hemoglobin 8.9 g/dL (11.7-16.6); Lymphocytes # 2.1 10^3/uL (0.8-4.8); Lymphocytes % 15.6 %; Mean Corpuscular HGB Conc 32.7 g/dL (30.0-36.0); Mean Corpuscular Hemoglobin 30.4 pg (28.0-34.0); Mean Corpuscular Volume 92.8 fL (80-94); Mean Platelet Volume 11.7 fL (7.4-10.4); Monocytes # 1.2 10^3/uL (0.2-0.9); Monocytes % 8.5 %; Neutrophils # 10.14 10^3/uL (1.8-7.7); Neutrophils % 74.7 %; Nucleated Red Blood Cells % 0 %; Platelet Count 261 10^3/cmm (130-400); Red Blood Count 2.93 10^6/uL (4.1-5.3); Red Cell Distribution Width 14.9 % (12.1-15.1); White Blood Count 13.6 10^3/uL (4.0-10.0)
--- NOTE | 2020-03-27 07:19 | PC.NURSE ---
0615 - Dr. Carmona at patients bedside, order given to extubate patient. RT at bedside, extubated, placed on 5L oxymask. Tolerated well, resp even and unlabored. V/S remain stable. 0700 - Report given to AURY Molina.
[2020-03-27] MEDS: sodium chloride 0.9% 1,000 ML 75 ML IV ×2 (07:44→20:14)
--- NOTE | 2020-03-27 07:50 | PC.NURSE ---
Pt able to open eyes and follow commands. Pain pill given for BP that is a little high and states that he is hurting. Kristine also at bedside assessing pt.
[2020-03-27] MEDS: aspirin 81 mg EC Tablet PO (08:46)
[2020-03-27] MEDS: chlorhexidine gluconate 0.12% Btl 473 mL 15 ML MUCOUS MEM ×2 (08:47→18:40)
[2020-03-27] MEDS: mupirocin oint 22 gm 1 APPLIC NASAL ×2 (08:49→18:40)
[2020-03-27] MEDS: clopidogrel 75 mg Tablet PO (08:51)
--- NOTE | 2020-03-27 08:56 | PC.NURSE ---
Dr Vasquez on floor assessing pt. New orders for HTN medication.
[2020-03-27] MEDS: amlodipine 5 mg Tablet PO (09:16)
--- NOTE | 2020-03-27 09:47 | PC.NURSE ---
Pt willing to use IS, only able to pull 250 at this time. Lungs clear complaining of pain with use.
[2020-03-27] MEDS: morphine 4 mg/mL SDV 1 mL 2 MG IVP ×2 (09:53→12:41)
--- NOTE | 2020-03-27 10:41 | PC.NURSE ---
PT PA pressures and CVP pressures are both reading high. lines are flushed, checked and rezeroed. Both wave forms are not good and consistant. Only difference at this time is the pt was moved onto his left side for comfort. Will continue to monitor.
--- NOTE | 2020-03-27 11:11 | PC.NUTR ---
NUTR CONSULT: Open Heart CABG consult received. Will cont to monitor and assess as diet progresses.
[2020-03-27] MEDS: vancomycin 1,000 MG in sodium chloride 0.9% 250 ML 250 MG IV (12:35)
[2020-03-27 15:00] LABS: Glucose Point of Care 107 mg/dL (70-110)
[2020-03-27 15:00] LABS: Glucose Point of Care 108 mg/dL (70-110)
[2020-03-27 15:00] LABS: Glucose Point of Care 92 mg/dL (70-110)
[2020-03-27 15:00] LABS: Glucose Point of Care 100 mg/dL (70-110)
[2020-03-27 15:00] LABS: Glucose Point of Care 119 mg/dL (70-110)
[2020-03-27 15:00] LABS: Glucose Point of Care 131 mg/dL (70-110)
[2020-03-27 15:00] LABS: Glucose Point of Care 100 mg/dL (70-110)
[2020-03-27 15:00] LABS: Glucose Point of Care 137 mg/dL (70-110)
[2020-03-27 15:00] LABS: Glucose Point of Care 101 mg/dL (70-110)
[2020-03-27 15:00] LABS: Glucose Point of Care 88 mg/dL (70-110)
[2020-03-27 15:00] LABS: Glucose Point of Care 89 mg/dL (70-110)
[2020-03-27 15:00] LABS: Glucose Point of Care 141 mg/dL (70-110)
[2020-03-27 15:00] LABS: Glucose Point of Care 93 mg/dL (70-110)
--- NOTE | 2020-03-27 16:36 | P.PN_ITS ---
Subjective Subjective: Interval history: Patient is post op day 1 of 3 vessel CABG. He is extubated. Says that his entire body is sore but denies any chest pain, shortness of breath or palpitations. He is paced at 80bpm. Continues to have underlying 2:1 heart block. Vitals/I&O/Wt Last Vital Signs Temp 98.6 F 03/26/20 21:15 Pulse 80 03/27/20 13:32 Resp 22 H 03/27/20 14:13 BP 116/66 03/27/20 12:00 Pulse Ox 95 03/27/20 13:30 03/27/20 03/27/20 03/27/20 06:59 14:59 22:59 Intake Total 511.293 / 5991.300 9950.90 / 2638.90 120 / 2758.90 Output Total 426 / 1101 437 / 437 150 / 587 Balance 85.293 / 733.898 2858.90 / 2201.90 -30 / 2171.90 Weight last 48 hrs Weight 218 lb 11.2 oz Physical Exam Narrative: EXAM NARRATIVE: Const OTHER: Responding appropriately HENMT COMMON NORMALS: normocephalic HEAD & SCALP: normocephalic Resp COMMON NORMALS: normal respiratory effort Cardio COMMON NORMALS: regular rate (Regular rate with pacing) Extremity COMMON NORMALS: no pedal edema GI: INSPECTION: Yes normal to inspection AUSCULTATION: Yes normoactive bowel sounds Urinary Catheter Management^: Arce: Cath Placed During This Visit: yes Urinary Catheter Date of Insertion: 03/26/20 Urinary Catheter Time of Insertion: 07:16 Data : 03/27/20 03:31 03/27/20 03:31 A&P Assessment and plan (1) STEMI (ST elevation myocardial infarction): Status: Acute (2) Coronary artery disease: Status: Acute (3) Hypertension: Status: Acute (4) Complete heart block: Status: Acute (5) YE (acute kidney injury): Status: Acute (6) Status post aorto-coronary artery bypass graft: Status: Acute Patient presented with acute ST elevation CA involving RCA. Ostial to mid RCA was successfully revascularized using NARCISO x2. Patient had severe left main artery stenosis/LAD/LCx and Ramus stenosis. He u nderwent successful revascularization with CABGX3 by Dr Carmona on 03/26/2020. He is stable right now. Extubated and responding appropriately Continue aspirin and Plavix. ECHO showed mildly reduced cardiac function Atrovastatin high intensity Blood pressure high this AM, can reinitiate amlodipine 5 mg daily Metoprolol stopped as patient complete heart block. Patient's complete heart block has resolved and now he has 2:1 AV block. Can wait post CABG for 2-3 days and if heart block does not resolve, will likely require permanent pacemaker early next week Creatinine improved to 1.1. Patient has sodium level of 146, he might require volume expansion. Albumin per CT surgery Attestations Medical Necessity Statement*: Care expected to cross 2 midnights. Patient is s/p CABG on 03/26/2020. Will require continued admission for recovery and possible permanent pacemaker placement. Coding Level of Care Code Acute Anesthesiologist Assistant Certified for Sujata Ramires Diagnoses STEMI (ST elevation myocardial infarction) I21.3 Coronary artery disease I25.10 Hypertension I10 Complete heart block I44.2 YE (acute kidney injury) N17.9 Status post aorto-coronary artery bypass graft Z95.1
--- NOTE | 2020-03-27 18:04 | PC.SOCIAL ---
IM follow up not given patient on vent and is not within two days of dc. Next time IM will be given is 03/29/2020 which may be closer to two days of DC.
[2020-03-27] MEDS: atorvastatin 40 mg Tablet PO (20:14)
[2020-03-27] MEDS: nitroglycerin drip 50 MG/250 ML PREMIX IV (20:15)
[2020-03-28] VITALS (29 sets, daily range): BP systolic 94–156; BP diastolic 43–64; PULSE 50–84; RESP 10–29; TEMP 36.7–37; O2SAT 91–96
[2020-03-28] MEDS: oxyCODONE-APAP 5-325 mg Tablet PO ×3 (02:39→17:53)
[2020-03-28 03:46] LABS: Basophils # 0.1 10^3/uL (0.0-0.1); Basophils % 0.5 %; Eosinophils # 0.1 10^3/uL (0.0-0.8); Eosinophils % 0.9 %; Hematocrit 28.9 % (42.0-52.0); Hemoglobin 9.3 g/dL (11.7-16.6); Lymphocytes # 2.3 10^3/uL (0.8-4.8); Lymphocytes % 15.5 %; Mean Corpuscular HGB Conc 32.2 g/dL (30.0-36.0); Mean Corpuscular Hemoglobin 29.5 pg (28.0-34.0); Mean Corpuscular Volume 91.7 fL (80-94); Mean Platelet Volume 11.5 fL (7.4-10.4); Monocytes # 1.1 10^3/uL (0.2-0.9); Monocytes % 7.1 %; Neutrophils # 11.19 10^3/uL (1.8-7.7); Neutrophils % 75.5 %; Nucleated Red Blood Cells % 0 %; Platelet Count 207 10^3/cmm (130-400); Red Blood Count 3.15 10^6/uL (4.1-5.3); Red Cell Distribution Width 15.3 % (12.1-15.1); White Blood Count 14.8 10^3/uL (4.0-10.0)
[2020-03-28 04:15] LABS: Anion Gap 11.2 (5-19); Blood Urea Nitrogen 20 mg/dL (8-23); Calcium 7.7 mg/dL (8.5-10.5); Carbon Dioxide 21 mmol/L (22-29); Chloride 110 mmol/L (98-107); Glucose 116 mg/dL (65-115); Osmolality Calculated 290 mOsm/kg (285-295); Potassium 4.2 mmol/L (3.5-5.1); Sodium 138 mmol/L (136-145)
[2020-03-28] MEDS: sodium chloride 0.9% 500 ML IV (05:21)
[2020-03-28 05:58] LABS: Glucose Point of Care 107 mg/dL (70-110)
[2020-03-28 05:58] LABS: Glucose Point of Care 90 mg/dL (70-110)
[2020-03-28 05:58] LABS: Glucose Point of Care 125 mg/dL (70-110)
[2020-03-28 05:58] LABS: Glucose Point of Care 77 mg/dL (70-110)
[2020-03-28 05:58] LABS: Glucose Point of Care 103 mg/dL (70-110)
[2020-03-28 05:58] LABS: Glucose Point of Care 91 mg/dL (70-110)
[2020-03-28 05:58] LABS: Glucose Point of Care 100 mg/dL (70-110)
[2020-03-28 05:58] LABS: Glucose Point of Care 101 mg/dL (70-110)
[2020-03-28 05:58] LABS: Glucose Point of Care 99 mg/dL (70-110)
[2020-03-28 05:58] LABS: Glucose Point of Care 87 mg/dL (70-110)
[2020-03-28 05:58] LABS: Glucose Point of Care 93 mg/dL (70-110)
--- NOTE | 2020-03-28 06:00 | XRR_ITS ---
PROCEDURE INFORMATION: Exam: XR Chest, 1 View Exam date and time: 03/28/2020 5:29 AM Age: 84 years old Clinical indication: Cardiovascular condition or disease; Coronary artery disease (cad) or atherosclerosis; Without angina pectoris; Prior surgery; Surgery type: Cagb; Patient HX: F/u S/P cabg pod 2; Additional info: Pod #2 status post cabg TECHNIQUE: Imaging protocol: XR of the chest Views: 1 view. COMPARISON: CR XR chest 1V portable [id number] 03/27/2020 5:09 AM FINDINGS: Tubes, catheters and devices: Right IJ catheter tip terminates in the SVC. Endotracheal tube is been removed. NG tube is been removed. Remaining lines and tubes are unchanged. Lungs: Patchy bibasilar atelectasis or other infiltrates. Pleural space: Small pleural effusions. Heart/Mediastinum: Cardiomegaly. Bones/joints: No acute fracture. XR/XR chest 1V portable [id number] IMPRESSION: Patchy bibasilar atelectasis or other infiltrates. Small pleural effusions.
[2020-03-28] MEDS: sodium chloride 0.9% 1,000 ML 75 ML IV ×2 (07:01→22:07)
[2020-03-28] MEDS: clopidogrel 75 mg Tablet PO (08:09)
[2020-03-28] MEDS: amlodipine 5 mg Tablet PO (08:10)
[2020-03-28] MEDS: aspirin 81 mg EC Tablet PO (08:10)
--- NOTE | 2020-03-28 09:19 | PC.NURSE ---
dr thayer on the unit. decreased pacer to a rate of 50 will closely monitor.
--- NOTE | 2020-03-28 10:46 | XRR_ITS ---
PROCEDURE INFORMATION: Exam: XR Chest, 1 View Exam date and time: 03/28/2020 10:46 AM Age: 84 years old Clinical indication: Pod #3 CABG TECHNIQUE: Imaging protocol: XR of the chest Views: 1 view. COMPARISON: CR XR chest 1V portable [id number] 03/28/2020 5:16 AM FINDINGS: Tubes, catheters and devices: Right jugular central line with the tip in the superior vena cava. Mediastinal and left thoracostomy tubes present. Lungs: Poor inspiration. Decreased lung volumes. Bilateral infrahilar airspace disease, more so on the left. However, some interval improvement in aeration of the left lung base. Pleural space: No pneumothorax. Small pleural effusions. Heart/Mediastinum: The cardiac silhouette is not enlarged. Prior CABG. Bones/joints: Prior median sternotomy. XR/XR chest 1V portable [id number] IMPRESSION: 1. Improved aeration of the left lung base. 2. No pneumothorax. Small pleural effusions.
--- NOTE | 2020-03-28 10:50 | P.PN_ITS ---
Subjective Subjective: Interval history: Postop day #2 status post CABG x3. Up in chair on rounds. Nurses report patient has made around ambulating in the unit and did well. Vital signs are stable. Still requiring DDD pacing. As Dr. Fields has previously noted, Mr. Conde will probably require a dual-chamber pacemaker prior to discharge but it would be good to wait another 1 to 2 days to see if postop edema resolution in the myocardium might improve the situation. Chest tube output about 450 cc past 24 hours. Intake and output is up about 3 L past 24 hours as well. Chest x-ray does reveal some increasing hilar fullness and small effusion. This is probably reequilibration of his third spaced fluid. Vitals/I&O/Wt Last Vital Signs Temp 98.0 F 03/28/20 04:00 Pulse 54 L 03/28/20 10:00 Resp 17 03/28/20 10:00 BP 94/43 03/28/20 10:00 Pulse Ox 94 03/28/20 10:00 03/27/20 03/28/20 03/28/20 22:59 06:59 14:59 Intake Total 1652.267 / 4541.167 341.312 / 4882.479 808.75 / 808.75 Output Total 450 / 887 210 / 1097 Balance 1202.267 / 3654.167 131.312 / 3785.479 808.75 / 808.75 Weight last 48 hrs Weight 223 lb Weight 218 lb 11.2 oz Physical Exam Chest: COMMONS NORMALS: normal inspection of the chest (Surgical dressings in place. Chest tube drainage is becoming more serous.) Resp: COMMON NORMALS: normal respiratory effort OTHER: Bibasilar crackles. Cardio: COMMON NORMALS: regular rate, regular rhythm, S1 normal heart sound present and No murmurs present (Cardio) RATE: regular rate RHYTHM: regular rhythm HEART SOUNDS: S1 normal heart sound present Extremity: OTHER: Just a trace of pretibial edema bilaterally. Urinary Catheter Management^: Arce: Cath Placed During This Visit: yes Urinary Catheter Date of Insertion: 03/26/20 Urinary Catheter Time of Insertion: 07:16 Data : 03/28/20 03:10 03/28/20 03:10 A&P Assessment and plan (1) Status post aorto-coronary artery bypass graft: Postop day #2 status post CABG x3. Making satisfactory progress. Plan: DC arterial line. We will check serum glucose 2-3 times a day to determine whether sliding scale is required. CBC, BMP, chest x-ray in a.m. Will hold on beta-isra due to heart block Lasix 20 mg IV. Will continue background maintenance fluids at 75 cc/h. Continue ICU stay due to early postop period and pacemaker requirement. Greatly appreciate Dr. Fields's continued oversight and recommendations. Status: Acute Attestations Medical Necessity Statement*: Postop day #2 status post CABG x3. Heart block. Pacemaker requirement. Time Spent in Patient Care: 16 - 35 minutes Coding Level of Care Code Acute Cold Storage Superintendent for Chg Fwd Diagnoses Status post aorto-coronary artery bypass graft Z95.1
[2020-03-28] MEDS: FUROsemide 10 mg/mL SDV 2mL 20 MG IVP (11:47)
[2020-03-28 12:13] LABS: Glucose Point of Care 130 mg/dL (70-110)
--- NOTE | 2020-03-28 15:27 | PM.PN ---
Subjective Subjective: Interval history: Patient is doing well. He is postop day 3 of three-vessel CABG. He has ambulated today. He has generalized body aches but no significant chest pain or shortness of breath. Has paced rhythm with underlying 2-1 AV block. Blood pressure is elevated post ambulation. Vitals/I&O/Wt Last Vital Signs Temp 98.4 F 03/28/20 14:00 Pulse 56 L 03/28/20 14:00 Resp 12 03/28/20 14:00 BP 107/47 03/28/20 14:00 Pulse Ox 92 03/28/20 14:00 03/28/20 03/28/20 03/28/20 06:59 14:59 22:59 Intake Total 341.312 / 4882.479 808.75 / 808.75 Output Total 210 / 1097 Balance 131.312 / 3785.479 808.75 / 808.75 Weight last 48 hrs Weight 223 lb Weight 218 lb 11.2 oz Physical Exam Narrative: EXAM NARRATIVE: GENERAL: Patient is alert, awake and oriented x3. [] NECK: No jugular vein distension. [] HEENT: No cyanosis. No icterus. No pallor. [] HEART: Regular S1 and S2. No murmur, rub or gallop. [] LUNGS: Mild crackles bilaterally ABDOMEN: Soft, nontender and nondistended. Positive bowel sounds. No guarding, rebound or tenderness. [] CENTRAL NERVOUS SYSTEM: Grossly nonfocal. [] EXTREMITIES: Lower extremities with no edema bilaterally. Pulses palpable in the lower extremities, both dorsalis pedis and posterior tibial. [] Urinary Catheter Management^: Arce: Cath Placed During This Visit: yes Urinary Catheter Date of Insertion: 03/26/20 Urinary Catheter Time of Insertion: 07:16 Data : 03/28/20 03:10 03/28/20 03:10 A&P Assessment and plan (1) STEMI (ST elevation myocardial infarction): Status: Acute (2) Coronary artery disease: Status: Acute (3) Hypertension: Status: Acute (4) Complete heart block: Status: Acute (5) YE (acute kidney injury): Status: Acute (6) Status post aorto-coronary artery bypass graft: Status: Acute Patient presented with acute ST elevation IA involving RCA. Ostial to mid RCA was successfully revascularized using NARCISO x2. Patient had severe left main artery stenosis/LAD/LCx and Ramus stenosis. He underwent successful revascularization with CABGX3 by Dr Carmona on 03/26/2020. He is stable right now. Ambulated today and feels well. Continue aspirin and Plavix. ECHO showed mildly reduced cardiac function Atrovastatin high intensity Continue amlodipine 5 mg daily. Metoprolol stopped as patient has 2:1 AV block. Can wait post CABG for 2-3 days and if heart block does not resolve, will likely require permanent pacemaker early next week. Has temporary pacemaker in place. We will decrease pacing rate to 50 to evaluate if his AV block resolves. However if he starts becoming hypotensive, will need to increase pacing rate. Creatinine improved to 0.9. Sodium level improved today. His urine output is low. Receiving IV fluids at 75 cc an hour. Has has mild volume overload, received 20 mg IV Lasix per CT surgery. Attestations Medical Necessity Statement*: Care expected to cross 2 midnights. Patient is status post CABG. Recovering in ICU at this time. Likely will need permanent pacemaker placement early next week. Coding Level of Care Code Acute Automobile And Property Underwriter for Chg Fwd Diagnoses STEMI (ST elevation myocardial infarction) I21.3 Coronary artery disease I25.10 Hypertension I10 Complete heart block I44.2 YE (acute kidney injury) N17.9 Status post aorto-coronary artery bypass graft Z95.1
[2020-03-28] MEDS: vancomycin 1,000 MG in sodium chloride 0.9% 250 ML 250 MG IV (17:13)
[2020-03-28] MEDS: mupirocin oint 22 gm 1 APPLIC NASAL (17:57)
[2020-03-28] MEDS: chlorhexidine gluconate 0.12% Btl 473 mL 15 ML MUCOUS MEM (17:58)
[2020-03-28 18:16] LABS: Glucose Point of Care 105 mg/dL (70-110)
[2020-03-28] MEDS: atorvastatin 40 mg Tablet PO (21:19)
[2020-03-28 23:46] LABS: Glucose Point of Care 101 mg/dL (70-110)
[2020-03-29] VITALS (54 sets, daily range): BP systolic 96–175; BP diastolic 47–88; PULSE 50–99; RESP 12–28; TEMP 36.5–36.6; O2SAT 87–97
[2020-03-29] MEDS: oxyCODONE-APAP 5-325 mg Tablet PO ×4 (00:09→20:47)
[2020-03-29 03:36] LABS: Basophils # 0.1 10^3/uL (0.0-0.1); Basophils % 0.6 %; Eosinophils # 0.4 10^3/uL (0.0-0.8); Eosinophils % 2.6 %; Hematocrit 30.7 % (42.0-52.0); Hemoglobin 9.6 g/dL (11.7-16.6); Lymphocytes # 2.4 10^3/uL (0.8-4.8); Lymphocytes % 17.4 %; Mean Corpuscular HGB Conc 31.3 g/dL (30.0-36.0); Mean Corpuscular Hemoglobin 29.4 pg (28.0-34.0); Mean Corpuscular Volume 94.2 fL (80-94); Mean Platelet Volume 11.3 fL (7.4-10.4); Monocytes # 0.9 10^3/uL (0.2-0.9); Monocytes % 6.9 %; Neutrophils # 9.76 10^3/uL (1.8-7.7); Neutrophils % 71.8 %; Nucleated Red Blood Cells % 0.1 %; Platelet Count 209 10^3/cmm (130-400); Red Blood Count 3.26 10^6/uL (4.1-5.3); Red Cell Distribution Width 15.2 % (12.1-15.1); White Blood Count 13.6 10^3/uL (4.0-10.0)
[2020-03-29 03:57] LABS: Anion Gap 12.7 (5-19); Blood Urea Nitrogen 23 mg/dL (8-23); Calcium 7.9 mg/dL (8.5-10.5); Carbon Dioxide 22 mmol/L (22-29); Chloride 108 mmol/L (98-107); Glucose 102 mg/dL (65-115); Osmolality Calculated 290 mOsm/kg (285-295); Potassium 4.7 mmol/L (3.5-5.1); Sodium 138 mmol/L (136-145)
--- NOTE | 2020-03-29 07:00 | PC.NURSE ---
SHIFT SUMMARY Patient had intermittent periods of heart rate sustaining over paced rate at 70s-90s for 10-15 minutes. Asymptomatic and blood pressure maintaining 120s/60s.
[2020-03-29 08:02] LABS: Glucose Point of Care 83 mg/dL (70-110)
--- NOTE | 2020-03-29 09:17 | PC.NURSE ---
pain medication prior now resting at this time refused breakfast
[2020-03-29] MEDS: chlorhexidine gluconate 0.12% Btl 473 mL 15 ML MUCOUS MEM ×2 (09:52→17:48)
[2020-03-29] MEDS: aspirin 81 mg EC Tablet PO (09:52)
[2020-03-29] MEDS: amlodipine 5 mg Tablet PO (09:52)
[2020-03-29] MEDS: clopidogrel 75 mg Tablet PO (09:52)
[2020-03-29] MEDS: mupirocin oint 22 gm 1 APPLIC NASAL ×2 (09:53→17:48)
--- NOTE | 2020-03-29 10:38 | XRR_ITS ---
PROCEDURE INFORMATION: Exam: XR Chest, 1 View Exam date and time: 03/29/2020 10:42 AM Age: 84 years old Clinical indication: Dyspnea; Prior surgery; Additional info: Post op cabg TECHNIQUE: Imaging protocol: XR of the chest Views: 1 view. COMPARISON: CR (CHEST, ) 03/28/2020 11:03 AM FINDINGS: The thorax is partially obscured by overlying EKG leads. Lungs: Mild left basilar airspace/pleural disease. Heart/Mediastinum: Cardiomegaly. Lines: Stable left thoracostomy tube, central venous catheter, and mediastinal drain. Bones/joints: Degenerative change. Median sternotomy. XR/XR chest 1V portable [id number] IMPRESSION: Mild left basilar airspace/pleural disease in the postoperative chest.
--- NOTE | 2020-03-29 10:41 | PM.PN ---
Subjective Subjective: Interval history: Postop day #3 status post CABG x3. Uneventful night. Pacemaker set at 50 bpm. Intermittent pacing. He does have occasional episodes of heart rate into the 80s though this appears to be an escape rhythm and I do not think is actually sinus. Chest tube output is decreasing to approximately 150 cc past 24 hours. Intake and output is still up almost 1 L for the past 24 hours despite IV Lasix yesterday. This morning's order chest x-ray was not completed and so therefore still pending. Vitals/I&O/Wt Last Vital Signs Temp 97.7 F 03/29/20 04:30 Pulse 62 03/29/20 10:30 Resp 18 03/29/20 10:30 BP 158/60 03/29/20 10:30 Pulse Ox 92 03/29/20 10:30 03/28/20 03/29/20 03/29/20 22:59 06:59 14:59 Intake Total 1250 / 2058.75 200 / 200 Output Total 915 / 915 230 / 1145 Balance 335 / 1143.75 -230 / 913.75 200 / 200 Weight last 48 hrs Weight 230 lb Weight 223 lb Physical Exam Chest: COMMONS NORMALS: normal inspection of the chest (Surgical dressings in place. Drains are in position.) Resp: OTHER: Bibasilar crackles. Needs work with incentive parameter. Cardio: COMMON NORMALS: negative for regular rhythm RATE: bradycardic RHYTHM: abnormal rhythm and abnormal rhythm Extremity: OTHER: Still with a trace of peripheral edema. Urinary Catheter Management^: Arce: Cath Placed During This Visit: yes Urinary Catheter Date of Insertion: 03/26/20 Urinary Catheter Time of Insertion: 07:16 Data : 03/29/20 02:59 03/29/20 02:59 A&P Assessment and plan (1) Status post aorto-coronary artery bypass graft: Postop day #3. Making satisfactory progress. Needs work with incentive spirometry. Plan: CBC, BMP, chest x-ray in a.m. We will have to do a chest x-ray performed now for review. Lasix 20 mg IV x1 this morning. DC Arce 4 hours later. DC central line after peripheral IVs are established. He will need mediastinal and pleural drains in at least another 24 to 48 hours. If there is no return to sinus rhythm we will tentatively plan for pacemaker dual-chamber placement Monday. I again greatly appreciate oversight and expertise of Dr. Fields. Status: Acute Attestations Medical Necessity Statement*: Postop day #3 status post CABG x3. 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
[2020-03-29] MEDS: amlodipine 10 mg Tablet PO (11:03)
[2020-03-29] MEDS: FUROsemide 10 mg/mL SDV 2mL 20 MG IVP (11:04)
[2020-03-29] MEDS: sodium chloride 0.9% 1,000 ML 75 ML IV (11:54)
--- NOTE | 2020-03-29 12:20 | PM.PN ---
Subjective Subjective: Interval history: Patient is doing well. He denies any complaints of chest pain,shortness of breath or palpitations. His urine output is low and creatinine has increased slightly. Recieved lasix 20mg IV this AM. Pacer rate is set at 50, he has frequent PAC's but underlying rhythm remains 2:1 AV block. Vitals/I&O/Wt Last Vital Signs Temp 97.7 F 03/29/20 04:30 Pulse 62 03/29/20 10:30 Resp 18 03/29/20 10:30 BP 158/60 03/29/20 10:30 Pulse Ox 92 03/29/20 10:30 03/28/20 03/29/20 03/29/20 22:59 06:59 14:59 Intake Total 1250 / 2058.75 1200 / 1200 Output Total 915 / 915 230 / 1145 Balance 335 / 1143.75 -230 / 913.75 1200 / 1200 Weight last 48 hrs Weight 230 lb Weight 223 lb Physical Exam Narrative: EXAM NARRATIVE: GENERAL: Patient is alert, awake and oriented x3. [] NECK: No jugular vein distension. [] HEENT: No cyanosis. No icterus. No pallor. [] HEART: Regular S1 and S2. No murmur, rub or gallop. [] LUNGS: Mild crackles bilaterally ABDOMEN: Soft, nontender and nondistended. Positive bowel sounds. No guarding, rebound or tenderness. [] CENTRAL NERVOUS SYSTEM: Grossly nonfocal. [] EXTREMITIES: Lower extremities with no edema bilaterally. Pulses palpable in the lower extremities, both dorsalis pedis and posterior tibial. [] Urinary Catheter Management^: Arce: Cath Placed During This Visit: yes Urinary Catheter Date of Insertion: 03/26/20 Urinary Catheter Time of Insertion: 07:16 Data : 03/29/20 02:59 03/29/20 02:59 A&P Assessment and plan (1) STEMI (ST elevation myocardial infarction): Status: Acute (2) Coronary artery disease: Status: Acute (3) Hypertension: Status: Acute (4) Complete heart block: Status: Acute (5) YE (acute kidney injury): Status: Acute (6) Status post aorto-coronary artery bypass graft: Status: Acute Patient presented with acute ST elevation [place] involving RCA. Ostial to mid RCA was successfully revascularized using NARCISO x2. Patient had severe left main artery stenosis/LAD/LCx and Ramus stenosis. He underwent successful revascularization with CABGX3 by Dr Carmona on 03/26/2020. He is stable right now. Ambulating Continue aspirin and Plavix. ECHO showed mildly reduced cardiac function Atrovastatin high intensity Blood pressure high today. Increase Amlodipine dose to 10mg daily Metoprolol stopped as patient has 2:1 AV block. As AV block has not resolved so far, tentative plan for permanent pacemaker placement on monday with Dr Carmona. Has temporary pacemaker in place. Continue pacing rate at 50. Urine output low over the last 24 hours. Has received lasix per CT surgery team this AM. Close monitoring of I and Os and renal function. Creatinine increased slightly to 1.2 today Attestations Medical Necessity Statement*: Care expected to cross 2 midnights. Patient had inferior wall stemi that was revascularized with emergent PCI of RCA. Left main disease and is now s/p 3 Vessel CABG. Currently recovering post op in ICU. Has 2:1 AV block , will need placement of permanent pacemaker on Monday Coding Level of Care Code Acute Nutrition Educator for [facility] Fwd Diagnoses STEMI (ST elevation myocardial infarction) I21.3 Coronary artery disease I25.10 Hypertension I10 Complete heart block I44.2 YE (acute kidney injury) N17.9 Status post aorto-coronary artery bypass graft Z95.1
[2020-03-29 14:22] LABS: Oxygen Device VENT
--- NOTE | 2020-03-29 16:26 | PC.NURSE ---
attempted iv site in left arm to remove central line ,, site infiltrated and pt very anxious and c/o of pain stopped at this time
[2020-03-29] MEDS: atorvastatin 40 mg Tablet PO (20:46)
[2020-03-30] VITALS (47 sets, daily range): BP systolic 93–176; BP diastolic 43–93; PULSE 54–98; RESP 12–33; TEMP 36.6; O2SAT 91–98
[2020-03-30] MEDS: sodium chloride 0.9% 1,000 ML 75 ML IV ×2 (02:43→18:18)
[2020-03-30] MEDS: oxyCODONE-APAP 5-325 mg Tablet PO ×2 (03:32→10:35)
--- NOTE | 2020-03-30 05:32 | PM.PN ---
Subjective Subjective: Interval history: Postop day #4 status post CABG. Uneventful night. Pacer set at 50. Still with evidence of 2-1 AV block. Chest tube output 240 cc past 24 hours. Chest x-ray is clear with continued cardiomegaly though the small left effusion appears to be smaller. This morning's lab is still pending. Intake and output is still volume up about 700 cc. Vitals/I&O/Wt Last Vital Signs Temp 97.7 F 03/29/20 19:30 Pulse 64 03/30/20 02:00 Resp 15 03/30/20 03:32 BP 141/55 03/30/20 02:00 Pulse Ox 95 03/30/20 02:00 03/29/20 03/29/20 03/30/20 14:59 22:59 06:59 Intake Total 1450 / 1450 350 / 1800 1000 / 2800 Output Total 1965 / 1965 Balance 1450 / 1450 -1615 / -165 1000 / 835 Weight last 48 hrs Weight 230 lb Weight 223 lb Physical Exam Chest: COMMONS NORMALS: normal inspection of the chest (Surgical dressings remain in place. Chest tube output is low.) Resp: COMMON NORMALS: normal respiratory effort, No retractions and No use of accessory muscles EFFORT & INSPECTION: Yes symmetric chest movement OTHER: Decreased breath sounds in the bases though does appear to be improved Cardio: COMMON NORMALS: regular rate; negative for regular rhythm RATE: regular rate and bradycardic RHYTHM: abnormal rhythm Extremity: COMMON NORMALS: no clubbing, cyanosis or edema Urinary Catheter Management^: Arce: Cath Placed During This Visit: yes Urinary Catheter Date of Insertion: 03/26/20 Urinary Catheter Time of Insertion: 07:16 Data : 03/30/20 03:10 03/29/20 02:59 A&P Assessment and plan (1) Status post aorto-coronary artery bypass graft: Continuing postop care. Will plan to remove wound VAC dressing and drains tomorrow in the operating room theater at the time of pacemaker implantation. He may benefit from daily oral Lasix. I will await return on today's lab and assessment of his renal function to determine whether diuretic is required today. Status: Acute (2) Complete heart block: With continued heart block, will plan for dual-chamber pacemaker implantation tomorrow. Rationale carefully discussed with Mr. Conde previously. Appropriate consents will be provided for review and signature. Status: Acute Attestations Medical Necessity Statement*: Status post CABG with continued 2-1 AV heart block Time Spent in Patient Care: 16 - 35 minutes Coding Level of Care Code Acute Welder Fabricator for Chg Fwd Diagnoses Status post aorto-coronary artery bypass graft Z95.1 Complete heart block I44.2
[2020-03-30 05:46] LABS: Basophils # 0.1 10^3/uL (0.0-0.1); Basophils % 0.6 %; Eosinophils # 0.4 10^3/uL (0.0-0.8); Eosinophils % 3.5 %; Hematocrit 33.1 % (42.0-52.0); Hemoglobin 10.4 g/dL (11.7-16.6); Lymphocytes # 2.5 10^3/uL (0.8-4.8); Mean Corpuscular HGB Conc 31.4 g/dL (30.0-36.0); Mean Corpuscular Hemoglobin 29.2 pg (28.0-34.0); Mean Platelet Volume 11.1 fL (7.4-10.4); Monocytes # 0.8 10^3/uL (0.2-0.9); Monocytes % 6.5 %; Neutrophils # 8.54 10^3/uL (1.8-7.7); Neutrophils % 68.7 %; Nucleated Red Blood Cells % 0.2 %; Platelet Count 273 10^3/cmm (130-400); Red Blood Count 3.56 10^6/uL (4.1-5.3); Red Cell Distribution Width 14.8 % (12.1-15.1); White Blood Count 12.4 10^3/uL (4.0-10.0)
[2020-03-30 05:55] LABS: Blood Urea Nitrogen 22 mg/dL (8-23); Calcium 8.1 mg/dL (8.5-10.5); Carbon Dioxide 21 mmol/L (22-29); Chloride 106 mmol/L (98-107); Glucose 91 mg/dL (65-115); Osmolality Calculated 289 mOsm/kg (285-295); Sodium 138 mmol/L (136-145)
--- NOTE | 2020-03-30 06:00 | XRR_ITS ---
PROCEDURE INFORMATION: Exam: XR Chest, 1 View Exam date and time: 03/30/2020 4:49 AM Age: 84 years old Clinical indication: Device placement; Other: Cabg; Prior surgery; Surgery date: Post-operative (0-2 days); Additional info: Pod#4 S/P cabg TECHNIQUE: Imaging protocol: XR of the chest Views: Frontal portable semiupright view of the chest. COMPARISON: CR (CHEST, ) 03/29/2020 10:59 AM FINDINGS: Tubes, catheters and devices: The patient is status post median sternotomy with intact sternal cerclage wires. Stable left chest tube position. EKG leads are present overlying the chest. Lungs: The pulmonary vasculature is normal. Increased left basilar pulmonary subsegmental atelectasis. Pleural space: Stable small bilateral pleural effusions. No definite pneumothorax. Heart/Mediastinum: Stable mediastinal drain positions. Coronary ostial markers are present. Stable borderline cardiomegaly. Vasculature: Mild aortic arch atherosclerotic calcification without ectasia. Bones/joints: Stable. XR/XR chest 1V portable [id number] IMPRESSION: 1. Stable small bilateral pleural effusions. 2. Increased left basilar pulmonary subsegmental atelectasis.
[2020-03-30] MEDS: chlorhexidine gluconate 0.12% Btl 473 mL 15 ML MUCOUS MEM ×2 (08:47→18:20)
[2020-03-30] MEDS: amlodipine 10 mg Tablet PO (08:47)
[2020-03-30] MEDS: mupirocin oint 22 gm 1 APPLIC NASAL ×2 (08:47→18:20)
[2020-03-30] MEDS: aspirin 81 mg EC Tablet PO (08:47)
--- NOTE | 2020-03-30 09:14 | PC.CHAP ---
Pastoral Care Encounter/Spiritual Assessment Type of Contact [] Declined color dipper visit [] Patient/Family/Request visit [] Outpatient visit [] Follow-up visit [] Physician referral [] Code/Alert [] Routine visit [] Staff referral [] Actively dying [] Patient sleeping [] Family support [] [] Out of room [] Palliative care [] [] Receiving care in room [] Pre-surgical visit [] Trauma [] Long length of stay [x] ICU visit [] Other: Relational/Emotional Strength [] Patient feels connected with others/family/visitors/staff [] Distress [] Loneliness/isolation [] Abandonment Spirituality of Patient [] Person of [place] [] Attends Quaker of their [place] [] Believes in Prayer [] Reads Bible or Hoahaoism materials [] There are Spiritual issues to be addressed Steam Hand Interventions [x] Prayer [] Active listening [] Non-anxious presence [] Spiritual/emotional support [] Crisis/trauma care [] Spiritual counseling [] Bereavement support [] Provided bereavement packet [] Provided Bible/devotional materials [] Provided toy/stuffed animal, coloring book to patient or family member [] Provided Communion [] Anointing/[place] [] Salvation [x] Completed spiritual assessment [] Other: Impact on Illness or Injury [] Angry [] Fearful [] Anxious [] Often cries [] Exhaustion [] Unable to work [] Unable to attend zoroastrianism [] Unable to walk/stand [] Unable to read [] Unable to drive [] Unable to eat/drink [] Unable to sleep [] Unable to be with family [] Patient intubated [] Other: Summary Time spent with patient
--- NOTE | 2020-03-30 16:58 | P.PN_ITS ---
Subjective Subjective: Interval history: Patient is doing well. No complaints of chest pain, shortness of breath or palpitations. He still has 2:1 AV block and requiring intermittent pacing (heart rate is set at 50bpm). Urine output has considerably improved today. Creatinine also improved. Vitals/I&O/Wt Last Vital Signs Temp 97.7 F 03/29/20 19:30 Pulse 91 03/30/20 12:00 Resp 30 H 03/30/20 12:00 BP 118/63 03/30/20 11:30 Pulse Ox 95 03/30/20 12:00 03/30/20 03/30/20 03/30/20 06:59 14:59 22:59 Intake Total 1328 / 3128 325 / 325 Output Total 2024 600 / 600 Balance 1268 / 1103 -275 / -275 Weight last 48 hrs Weight 230 lb Physical Exam Narrative: EXAM NARRATIVE: GENERAL: Patient is alert, awake and oriented x3. [] NECK: No jugular vein distension. [] HEENT: No cyanosis. No icterus. No pallor. [] HEART: Regular S1 and S2. No murmur, rub or gallop. [] LUNGS: Mild crackles bilaterally ABDOMEN: Soft, nontender and nondistended. Positive bowel sounds. No guarding, rebound or tenderness. [] CENTRAL NERVOUS SYSTEM: Grossly nonfocal. [] EXTREMITIES: Lower extremities with no edema bilaterally. Pulses palpable in the lower extremities, both dorsalis pedis and posterior tibial. [] Urinary Catheter Management^: Arce: Cath Placed During This Visit: yes Urinary Catheter Date of Insertion: 03/26/20 Urinary Catheter Time of Insertion: 07:16 Data : 03/30/20 03:10 03/30/20 03:10 A&P Assessment and plan (1) STEMI (ST elevation myocardial infarction): Status: Acute (2) Coronary artery disease: Status: Acute (3) Hypertension: Status: Acute (4) Complete heart block: Status: Acute (5) YE (acute kidney injury): Status: Acute (6) Status post aorto-coronary artery bypass graft: Status: Acute Patient presented with acute ST elevation [place] involving RCA. Ostial to mid RCA was successfully revascularized using NARCISO x2. Patient had severe left main artery stenosis/LAD/LCx and Ramus stenosis. He underwent successful revascularization with CABGX3 by Dr Carmona on 03/26/2020. He is stable right now. Ambulating Continue aspirin and Plavix. ECHO showed mildly reduced cardiac function Atrovastatin high intensity Blood pressure high today. Increase Amlodipine dose to 10mg daily. Blood pressure is borderline. Will initiate lisinopril 5 mg daily Metoprolol stopped as patient has 2:1 AV block. As AV block has not resolved so far, plan for permanent pacemaker placement tomorrow with Dr Carmona. Has temporary pacemaker in place. Continue pacing rate at 50. Urine output has improved. Will likely need daily lasix, will initiate 40 po lasix daily starting tomorrow Attestations Medical Necessity Statement*: Care expected to cross 2 midnights. Patient s/p PCI and CABG and planned for permanent pacemaker placement tomorrow. 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
[2020-03-30] MEDS: atorvastatin 40 mg Tablet PO (21:01)
[2020-03-31] VITALS (51 sets, daily range): BP systolic 107–209; BP diastolic 49–119; PULSE 58–95; RESP 12–31; TEMP 36.6–36.9; O2SAT 92–98
--- NOTE | 2020-03-31 | SCC_ITS ---
Procedure Done: Dual-chamber pacemaker implantation 252 seconds of fluoroscopic guidance, for a cumulative dose of 39.93 mGy, was provided to Dr. Carmona by the radiology department. C-arm images of the chest were saved for the patient's permanent record. [place]
--- NOTE | 2020-03-31 06:12 | PM.PN ---
Subjective Subjective: Interval history: Postop day #5 status post CABG x3. Still with intermittent 2-1 AV heart block. Low chest tube output of less than 100 cc past 24 hours. Ambulating with assistance without difficulty. Tolerating diet well. Sternotomy discomfort under good control. Chest x-ray is stable and clear. Vitals/I&O/Wt Last Vital Signs Temp 97.9 F 03/30/20 14:00 Pulse 69 03/31/20 05:00 Resp 20 H 03/31/20 05:00 BP 115/74 03/31/20 05:00 Pulse Ox 93 03/31/20 05:00 03/30/20 03/30/20 03/31/20 14:59 22:59 06:59 Intake Total 325 / 325 1325 / 1650 Output Total 600 / 600 725 / 1325 375 / 1700 Balance -275 / -275 600 / 325 -375 / -50 Weight last 48 hrs Weight 230 lb Physical Exam Chest: COMMONS NORMALS: normal inspection of the chest (Surgical dressings in place. Chest wall stable.) and normal palpation of entire chest wall Resp: COMMON NORMALS: normal respiratory effort and clear to auscultation bilaterally AUSCULTATION: clear to auscultation bilaterally Cardio: PALPATION: normal PMI RATE: bradycardic RHYTHM: abnormal rhythm Extremity: COMMON NORMALS: no clubbing, cyanosis or edema Urinary Catheter Management^: Arce: Cath Placed During This Visit: yes Urinary Catheter Date of Insertion: 03/26/20 Urinary Catheter Time of Insertion: 07:16 Data : 03/30/20 03:10 03/30/20 03:10 A&P Assessment and plan (1) Status post aorto-coronary artery bypass graft: Progressing well. Will discontinue wound VAC dressing and chest tubes this afternoon at time of pacemaker implantation. Status: Acute (2) Complete heart block: Plan for dual-chamber pacemaker implantation this afternoon. Rationale for pacemaker implantation was carefully and frankly discussed. Questions answered. He is agreeable to proceed. Status: Acute Attestations Medical Necessity Statement*: 5 days status post CABG with continue 2-1 AV heart block. Time Spent in Patient Care: 16 - 35 minutes Coding Level of Care Code Acute Service Loss Control Consultant for Sujata Ramires Diagnoses Status post aorto-coronary artery bypass graft Z95.1 Complete heart block I44.2
[2020-03-31] MEDS: oxyCODONE-APAP 5-325 mg Tablet PO ×2 (06:28→23:32)
[2020-03-31] MEDS: lactated ringers 1,000 ML 125 ML IV (06:28)
[2020-03-31] MEDS: mupirocin oint 22 gm 1 APPLIC NASAL ×2 (08:00→18:52)
--- NOTE | 2020-03-31 08:57 | P.PN_ITS ---
Subjective Subjective: Interval history: Patient is overall doing well. He denies complaints of chest pain, shortness of breath or palpitations. Continues having underlying 2-1 AV block. Intermittent pacing with pacemaker set at 50 bpm. Vitals/I&O/Wt Last Vital Signs Temp 97.9 F 03/30/20 14:00 Pulse 68 03/31/20 06:30 Resp 20 H 03/31/20 06:30 BP 152/73 03/31/20 06:30 Pulse Ox 94 03/31/20 06:30 03/30/20 03/31/20 03/31/20 22:59 06:59 14:59 Intake Total 1325 / 1650 Output Total 725 / 1325 375 / 1700 Balance 600 / 325 -375 / -50 Weight last 48 hrs Weight 233 lb 3 oz Weight 230 lb Physical Exam Narrative: EXAM NARRATIVE: GENERAL: Patient is alert, awake and oriented x3. [] NECK: No jugular vein distension. [] HEENT: No cyanosis. No icterus. No pallor. [] HEART: Regular S1 and S2. No murmur, rub or gallop. [] LUNGS: Mild crackles bilaterally ABDOMEN: Soft, nontender and nondistended. Positive bowel sounds. No guarding, rebound or tenderness. [] CENTRAL NERVOUS SYSTEM: Grossly nonfocal. [] EXTREMITIES: Lower extremities with no edema bilaterally. Pulses palpable in the lower extremities, both dorsalis pedis and posterior tibial. [] Urinary Catheter Management^: Arce: Cath Placed During This Visit: yes Urinary Catheter Date of Insertion: 03/26/20 Urinary Catheter Time of Insertion: 07:16 Data : 03/30/20 03:10 03/30/20 03:10 A&P Assessment and plan (1) STEMI (ST elevation myocardial infarction): Status: Acute (2) Coronary artery disease: Status: Acute (3) Hypertension: Status: Acute (4) Complete heart block: Status: Acute (5) YE (acute kidney injury): Status: Acute (6) Status post aorto-coronary artery bypass graft: Status: Acute Patient presented with acute ST elevation CT involving RCA. Ostial to mid RCA was successfully revascularized using NARCISO x2. Patient had severe left main artery stenosis/LAD/LCx and Ramus stenosis. He underwent successful revascularization with CABGX3 by Dr Carmona on 03/26/2020. He is stable right now. Ambulating Continue aspirin and Plavix. ECHO showed mildly reduced cardiac function Atrovastatin high intensity Blood pressure high today. Increase Amlodipine dose to 10mg daily. Uptitrating lisinopril Metoprolol stopped as patient has 2:1 AV block. As AV block has not resolved so far, plan for permanent pacemaker placement today with Dr Carmona. Has temporary pacemaker in place. Continue pacing rate at 50. Urine output has improved. Will likely need daily lasix, will initiate 40 po lasix daily starting tomorrow Attestations Medical Necessity Statement*: Care expected to cross 2 midnights. Patient is s/p PCI and CABG. Undergoing permanent pacemaker placement today. Coding Level of Care Code Acute Legal Secretary Receptionist for Sujata Ramires Diagnoses STEMI (ST elevation myocardial infarction) I21.3 Coronary artery disease I25.10 Hypertension I10 Complete heart block I44.2 YE (acute kidney injury) N17.9 Status post aorto-coronary artery bypass graft Z95.1
[2020-03-31] MEDS: vancomycin 1,000 MG in sodium chloride 0.9% 250 ML 250 MG IV (09:12)
[2020-03-31] MEDS: amlodipine 10 mg Tablet PO (09:12)
[2020-03-31] MEDS: aspirin 81 mg EC Tablet PO (09:12)
[2020-03-31] MEDS: chlorhexidine gluconate 0.12% Btl 473 mL 15 ML MUCOUS MEM ×2 (09:14→18:51)
[2020-03-31] MEDS: lisinopril 10 mg Tablet PO (09:15)
--- NOTE | 2020-03-31 14:38 | SC_ITS ---
WS: [id number] C-arm fluoroscopy for pacemaker wire visualization, 03/31/2020 Clinical Data: PACEMAKER Comparison: Portable chest, 03/30/2020. Findings: Pacemaker wires appear to end within the right ventricle. Sternotomy sutures are seen. SC/C-arm FL for Pacemaker Impression: Pacemaker wires probably in right ventricle.
[2020-03-31] MEDS: lidocaine 1% INJ 20 mL INJECTION (15:16)
[2020-03-31] MEDS: vancomycin 1,000 MG SDV 1000 MG IRRIGATION (15:16)
--- NOTE | 2020-03-31 15:27 | ANES.PREANE2 ---
Pre-Anesthetic Assessment Pre-Anesthetic Assessment: Height/Weight: Height 1.8 m Weight 105.772 kg Temp Pulse Resp BP Pulse Ox 98.1 F 82 21 H 116/49 95 03/31/20 14:30 03/31/20 14:30 03/31/20 14:30 03/31/20 14:30 03/31/20 14:30 Preop Diagnosis: Left main coronary stenosis/Status post STEMI Proposed Procedure: Operation Date: 03/18/20 08:00 Proposed Procedures p Cardiac Catheterization(Not Applicable) - Yousif Fields M.D Operation Date: 03/26/20 07:00 Proposed Procedures p CABG(Not Applicable) - Lencho Carmona MD Operation Date: 03/31/20 16:00 Proposed Procedures p Dual chamber Pacemaker Insertion(Not Applicable) - Lencho Carmona MD Was Beta Ana María taken within 24 hours: N/A Last intake: Intake Last Liquid Date 03/25/20 Last Liquid Time 17:00 Last Solid Date 03/25/20 Last Solid Time 17:00 Social: Social History: No alcohol and No tobacco Exam: Pre-Anes Outpt Exam: alert, oriented x 3 and clear to auscultation bilaterally Additional Exam Findings (including area of procedure): Heart blk Airway: Submandibular: WNL Cervical ROM: WNL MP: 2 Dentition: Chipped CV/HEM: CV/HEM: CAD, HTN and ME Comments: S/P CABG : : Chronic renal failuer Anesthetic Plan: ASA status: 3 Anesthesia: MAC Risk of > 500 ml blood loss (7ml/kg in children): No Meds/Allergies Current Medications: Current Medications Generic Name Dose Route Start Last Admin Trade Name Freq PRN Reason Stop Dose Admin Amlodipine Besylat e 10 mg 03/29/20 11:00 03/31/20 09:12 Amlodipine 10 Mg Tablet PO 10 mg DAILY HIRAM Administration Aspirin 81 mg 03/19/20 09:00 03/31/20 09:12 Aspirin 81 Mg Ec Tablet PO 81 mg DAILY HIRAM Administration Atorvastatin Calci um 40 mg 03/18/20 21:00 03/30/20 21:01 Atorvastatin 40 Mg Tablet PO 40 mg BEDTIME HIRAM Administration Chlorhexidine Gluc michelle 15 ml 03/26/20 18:00 03/31/20 09:14 Chlorhexidine Gl uconate 0.12% Btl 473 Ml MUCOUS MEM 15 ml BID HIRAM Administration Dobutamine HCl/Dex trose 500 mg in 250 mls @ 0 mls/hr 03/26/20 16:04 03/27/20 05:06 Dobutamine Drip IV 0 mcg/kg/min .Q0M PRN 0 mls/hr Cardiac Output Titration Protocol Per Protocol Albumin Human 12.5 gm in 250 ml s @ 600 mls/hr 03/26/20 16:04 03/27/20 06:55 Albumin IV Infused PRN PRN Infusion For CVP < 4 or SB P< 90 Nitroglycerin/Dext christine 50 mg in 250 mls @ 0 mls/hr 03/26/20 16:04 03/27/20 22:[address] ip IV 0 mcg/min .Q0M HIRAM 0 mls/hr Titration Protocol Per Protocol Sodium Chloride 500 mls @ 0 mls/h r 03/28/20 05:15 03/29/20 19:00 Sodium Chloride 0.9% IV 0 mls/hr .Q0M HIRAM Infusion Per Protocol Lactated Ringer's 1,000 mls @ 125 m ls/hr 03/31/20 06:15 03/31/20 06:28 Lactated Ringers IV 125 mls/hr .Q8H HIRAM Administration Lisinopril 10 mg 03/31/20 09:00 03/31/20 09:15 Lisinopril 10 Mg Tablet PO 10 mg DAILY HIRAM Administration Mupirocin 1 applic 03/23/20 18:00 03/31/20 08:00 Mupirocin Oint 2 2 Gm NASAL 1 applic BID HIRAM Administration Oxycodone/Acetamin ophen 1 - 2 tab 03/31/20 06:15 03/31/20 06:28 Oxycodone-Apap 5 -325 Mg Tablet PO 2 tab Q6H PRN Administration MODERATE TO SEVER E PAIN PFSH Anesthesia PFSH: Medical History (Updated 03/23/20 @ 17:50 by Yousif Fields M.D) Coronary artery disease Hypertension Pulmonary embolism STEMI (ST elevation myocardial infarction) Social History (Updated 03/23/20 @ 10:13 by Lencho Carmona MD) Smoking and tobacco status: never smoked Alcohol intake: former Data Anesthesia CBC & Chem 7: 03/30/20 03:10 03/30/20 03:10 Other Labs: Laboratory Results - last 48 hr 03/30/20 03/30/20 03:10 03:10 WBC 12.4 H RBC 3.56 L Hgb 10.4 L Hct 33.1 L MCV 93.0 MCH 29.2 MCHC 31.4 RDW 14.8 Plt Count 273 MPV 11.1 H Neut % (Auto) 68.7 Lymph % (Auto) 20.0 [place] % (Auto) 6.5 Eos % (Auto) 3.5 Baso % (Auto) 0.6 Neut # (Auto) 8.54 H Lymph # (Auto) 2.5 [place] # (Auto) 0.8 Eos # (Auto) 0.4 Baso # (Auto) 0.1 Nucleated RBC % (auto) 0.2 Nucleated RBCs # 0.0 Sodium 138 Potassium 4.0 Chloride 106 Carbon Dioxide 21 L Anion Gap 15.0 BUN 22 Creatinine 0.9 GFR Calculation Not Reportable Glucose 91 Calculated Osmolality 289 Calcium 8.1 L Cardiac Studies: No Data to Display
--- NOTE | 2020-03-31 16:41 | SUR.OPER ---
ATTEMPTED TO CONTACT SON ROBERT DICKSON X 2 WITH NUMBER PROVIDED. NO ANSWER AT THIS TIME
--- NOTE | 2020-03-31 17:12 | PC.SOCIAL ---
*IMM* Unable to give IMM. Pt not DC at this time.
--- NOTE | 2020-03-31 17:53 | PM.OP ---
Operative Report Date of procedure: March 31, 2020 Pre-op Diagnosis: Left main coronary stenosis/Status post STEMI: 2-1 AV heart block Post-op diagnosis: same Procedure Done: Dual-chamber pacemaker implantation Implants: Pacing generator, atrial and ventricular leads Pathology: none sent Surgeon: Lencho Carmona Anesthesia: MAC and Local Condition: stable Disposition: ICU Brief History: Mr. Conde is an 84-year-old gentleman who is now 5 days status post CABG x3. He originally presented with a inferior infarction and underwent successful PTCA rescue of the acutely occluded RCA. He had third-degree heart block immediately following the PTCA and this is separately been a 2-1 block since preoperatively from his CABG. He was also found at that time to have left main disease. He subsequently underwent CABG x3. He has maintained AV block had 2-1 and therefore dual-chamber pacemaker implantation has been recommended by Dr. Fields. Details the risk of the procedure were carefully and frankly discussed. Appropriate consents have been reviewed and signed. Procedure: Procedure: Mr. Conde was taken to the OR suite and placed in the supine position over a shoulder roll. He received conscious sedation with continuous anesthesia monitoring by. Initially, he has mediastinal drains were discontinued, though his left pleural tube was left into position until after the completion of the procedure, at which time it was removed. He has entire chest was sterilely prepped and draped. 1% lidocaine was infiltrated in the left subclavicular region. While in Trendelenburg position, utilizing modified seldinger technique, 2 guidewires were placed in the left subclavian vein. This was confirmed in position by fluoroscopy. Next, after infiltration with lidocaine, a subcutaneous pocket was created beginning from the exit point of the guidewire and extending laterally and inferiorly. Cautery was utilized to create the pocket just above the pectoralis musculature. Hemostasis was confirmed. An antibiotic-soaked sponge was placed in the wound. A dilator and tear-away sheath was placed over the first guidewire and advanced under fluoroscopy. Guidewire and dilator were removed. Next using a combination of curved and straight stylettes, the right ventricular lead was placed in position by fluoroscopy. The distal screw was extended. Interrogation was then performed confirming appropriate parameters. The tear-away sheath was then removed and the ventricular lead was sewn to the floor of the subcutaneous pocket. In a similar fashion dilator and tear-away sheath was placed over the 2nd guide wire and advanced under fluoroscopy. Guidewire and dilator were removed. Straight and curved stylettes were used to position the right atrial lead with fluoroscopy. This was somewhat challenging due to his 2 previous open cardiac procedures. Distal screw was extended. Interrogation was then performed. Tear-away sheath was then removed. Atrial lead was secured to the floor of the subcutaneous pocket. Pocket was irrigated with antibiotic solution and hemostasis again confirmed. Pacing generator was brought into the field, and after confirmation of hemostasis in the subcutaneous pocket, the leads were connected to the generator with appropriate capture. The entire system was interrogated by fluoroscopy. Leads and generator were secured in the pocket. Sponge and needle count was correct. The wound was then closed in 2 layers of 3-0 Vicryl suture. Skin was reapproximated in a subcuticular manner with 4-0 Monocryl suture. A pressure dressing was applied. The left arm was placed in a sling. Mr. Conde had equal breath sounds bilaterally. He was then transferred back to the ICU, where chest x-ray is currently pending. We did attempt to contact family members by phone prior, during, and at the completion of the procedure. However, we were unsuccessful.
--- NOTE | 2020-03-31 18:45 | PC.NURSE ---
Just returned from OR approx 20 min ago. Currently on simple mask and responds to verbal stimuli. remains lethargic from surgery. Arm sling put on and left chest dressing D/I
--- NOTE | 2020-03-31 19:32 | ANE.PACU2 ---
Inpatient post-anesthesia follow up: Airway intact: Yes Vital signs: Temperature 98.1 F Pulse Rate [Monito r] 48 Pulse Rate 78 Respiratory Rate 21 Blood Pressure [Ri ght Arm] 120/46 Blood Pressure 168/119 Pulse Oximetry 96 Oxygen Delivery Me thod [ Room Air Current Rate & Del toan] Oxygen Delivery Me thod Nasal Cannula Oxygen Flow Rate 2 Fraction of Inspir ed Oxygen 30 Hydration adequate: Yes Nausea and vomiting: No Pain level: 1 Mental status: Baseline
--- NOTE | 2020-03-31 19:34 | PC.NURSE ---
assessment AO x4, follows commands, dressing to L chest pace maker site clean dry intact, sternal dressings Clean dry intact, placed on 2L NC from simple mask O2 95 at this time, supine 30 degrees call light within reach
[2020-03-31] MEDS: atorvastatin 40 mg Tablet PO (21:20)
[2020-03-31] MEDS: vancomycin 1,500 MG/300 ML PIGGYBACK 200 MG IV (21:21)
--- NOTE | 2020-03-31 23:00 | PC.NURSE ---
2 episodes of urinary incontinence
[2020-04-01] VITALS (19 sets, daily range): BP systolic 112–167; BP diastolic 58–92; PULSE 65–117; RESP 16–31; TEMP 36.4–36.9; O2SAT 90–98
[2020-04-01] MEDS: lactated ringers 1,000 ML 125 ML IV (03:21)
--- NOTE | 2020-04-01 06:00 | ECG_ITS ---
[facility] Test Date: 2020-04-01 Pat Name: Aiden Conde Department: Room: ICU10 Gender: Male Integrity Manager: : [id number] Requested By: Lencho Carmona Order Number: [id number] Reyna MD: Charleen Zuniga M.D. Measurements Intervals [place] Rate: 90 P: 50 [place]: 188 QRS: -12 QRSD: 172 T: -46 QT: 410 QTc: 502 Interpretive Statements ELECTRONIC VENTRICULAR PACEMAKER ABNORMAL RHYTHM ECG Compared to ECG 03/27/2020 05:22:44 Atrial-paced complex(es) or rhythm no longer present Electronically Signed On 04-01-2020 19:23:28 GLUE MACHINE OPERATOR by Charleen Zuniga M.D. [email or web address] Campuses of [id number]
--- NOTE | 2020-04-01 06:00 | XR_ITS ---
WS: [id number] Portable AP semiupright chest, 04/01/2020 Clinical Data: Post permanent pacemaker placement; visualize lead tip Comparison: Portable chest, 03/30/2020. Findings: There is a permanent pacemaker with the generator overlying the left axilla. The left chest tube and mediastinal tubes have been removed. The pulmonary vascularity is minimally increased. Ther e are small bilateral pleural effusions. The heart remains enlarged. Midline sternotomy sutures are p resent. Monitor leads on the chest wall. XR/XR chest 1V [id number] Impression: 1. Satisfactory position of permanent pacemaker. 2. Mild pulmonary vascular congestion and cardiomegaly. 3. Post recent cardiac bypass surgery.
--- NOTE | 2020-04-01 06:35 | P.PN_ITS ---
Subjective Subjective: Interval history: Postop day #1 status post dual-chamber pacemaker implantation. Postop day #6 that is post CABG x3. Rested well last night. Mostly captured rhythm. Interrogation of pacemaker system pending this morning. Vitals/I&O/Wt Last Vital Signs Temp 97.8 F 03/31/20 19:30 Pulse 87 04/01/20 04:00 Resp 16 04/01/20 04:00 BP 142/71 04/01/20 04:00 Pulse Ox 96 04/01/20 04:00 03/31/20 03/31/20 04/01/20 14:59 22:59 06:59 Intake Total 1000 / 1000 600 / 1600 Output Total 300 / 300 350 / 650 Balance 700 / 700 -350 / 350 600 / 950 Weight last 48 hrs Weight 209 lb Weight 233 lb 3 oz Physical Exam Chest: COMMONS NORMALS: normal inspection of the chest (Sternotomy incision and mediastinal drain sites well approximated. Tempora) and normal palpation of entire chest wall Resp: COMMON NORMALS: normal respiratory effort and clear to auscultation alea aterally AUSCULTATION: clear to auscultation bilaterally Cardio: COMMON NORMALS: regular rate RATE: regular rate OTHER: Mostly paced rhythm Extremity: OTHER: There is some swelling of the left hand. I do note that he had a circumferential tourniquet in the left mid arm, probably on most of the night. This was removed. We will carefully observe this over the next few hours. Urinary Catheter Management^: Arce: Cath Placed During This Visit: yes Urinary Catheter Date of Insertion: 03/26/20 Urinary Catheter Time of Insertion: 07:16 Data : 03/30/20 03:10 03/30/20 03:10 A&P Assessment and plan (1) Status post aorto-coronary artery bypass graft: Postop day #6 status post CABG x3. Making reasonably good progress. Plan: Will plan to transfer to intermediate care if cleared by Dr. Fields. Status: Acute (2) Status post cardiac pacemaker procedure: Postop day #1 status post dual-chamber pacemaker implantation. Status: Acute Attestations Medical Necessity Statement*: Status post CABG x3 and dual-chamber pacemaker implantation. Time Spent in Patient Care: 16 - 35 minutes Coding Level of Care Code Acute Final Finisher Forging Dies for Sujata Fwd Diagnoses Status post aorto-coronary artery bypass graft Z95.1 Status post cardiac pacemaker procedure Z95.0
--- NOTE | 2020-04-01 07:01 | SUR.OPER ---
late entry for 03/31/[address] Carmona removed wound vac from patients chest incision. Wound was clean, dry and intact.
--- NOTE | 2020-04-01 08:36 | P.PN_ITS ---
Subjective Subjective: Interval history: Patient is doing well. He underwent placement of permanent pacemaker yesterday. Pacemaker is capturing appropriately. Pending pacemaker check today. He denies any complaints of chest pain, shortness of breath or palpitations. He states that he feels hungry and thirsty today. Morning lab is pending. Vitals/I&O/Wt Last Vital Signs Temp 97.8 F 03/31/20 19:30 Pulse 84 04/01/20 06:00 Resp 18 04/01/20 06:00 BP 129/72 04/01/20 06:00 Pulse Ox 95 04/01/20 06:00 03/31/20 04/01/20 04/01/20 22:59 06:59 14:59 Intake Total 600 / 1600 Output Total 350 / 650 Balance -350 / 350 600 / 950 Weight last 48 hrs Weight 209 lb Weight 233 lb 3 oz Physical Exam Narrative: EXAM NARRATIVE: GENERAL: Patient is alert, awake and oriented x3. [] NECK: No jugular vein distension. [] HEENT: No cyanosis. No icterus. No pallor. [] HEART: Regular S1 and S2. No murmur, rub or gallop. [] LUNGS: Clear to auscultate bilaterally. [] ABDOMEN: Soft, nontender and nondistended. Positive bowel sounds. No guarding, rebound or tenderness. [] CENTRAL NERVOUS SYSTEM: Grossly nonfocal. [] EXTREMITIES: Lower extremities with no edema bilaterally. Pulses palpable in the lower extremities, both dorsalis pedis and posterior tibial. [] Urinary Catheter Management^: Arce: Cath Placed During This Visit: yes Urinary Catheter Date of Insertion: 03/26/20 Urinary Catheter Time of Insertion: 07:16 Data : 03/30/20 03:10 03/30/20 03:10 A&P Assessment and plan (1) STEMI (ST elevation myocardial infarction): Status: Acute (2) Coronary artery disease: Status: Acute (3) Hypertension: Status: Acute (4) Complete heart block: Status: Acute (5) YE (acute kidney injury): Status: Acute (6) Status post aorto-coronary artery bypass graft: Status: Acute Patient presented with acute ST elevation [place] involving RCA. Ostial to mid RCA was successfully revascularized using NARCISO x2. Patient had severe left main artery stenosis/LAD/LCx and Ramus stenosis. He underwent successful revascularization with CABGX3 by Dr Carmona on 03/26/2020. He is stable right now. Ambulating Continue aspirin and Plavix. ECHO showed mildly reduced cardiac function Atrovastatin high intensity Blood pressure high today. Increase Amlodipine dose to 10mg daily. Uptitrating lisinopril to 20 mg daily Patient had 2-1 AV block with heart rates dropping significantly. He is s/p p lacement of permanent pacemaker today. Pacemaker is capturing appropriately. Pending full check. We will initiate beta-isra today uptitrate dose of lisinopril as his blood pressure is high. Awaiting morning BMP. If creatinine is stable, we will initiate low-dose Lasix. Patient is stable to be transferred out of ICU today Attestations Medical Necessity Statement*: Care expected to cross 2 midnights. Patient is s/p PCI/CABG/ Pacermaker placement. Coding Level of Care Code Acute Dragline Mechanic for [facility] Melanid Diagnoses STEMI (ST elevation myocardial infarction) I21.3 Coronary artery disease I25.10 Hypertension I10 Complete heart block I44.2 YE (acute kidney injury) N17.9 Status post aorto-coronary artery bypass graft Z95.1
[2020-04-01] MEDS: aspirin 81 mg EC Tablet PO (09:18)
[2020-04-01] MEDS: lisinopril 10 mg Tablet 20 MG PO (09:19)
[2020-04-01] MEDS: vancomycin 1,500 MG/300 ML PIGGYBACK 200 MG IV ×2 (09:19→20:45)
[2020-04-01] MEDS: amlodipine 10 mg Tablet PO (09:19)
[2020-04-01] MEDS: clopidogrel 75 mg Tablet PO (09:22)
--- NOTE | 2020-04-01 09:36 | PC.CHAP ---
Pastoral Care Encounter/Spiritual Assessment Type of Contact [] Declined brand attendant visit [] Patient/Family/Request visit [] Outpatient visit [] Follow-up visit [] Physician referral [] Code/Alert [] Routine visit [] Staff referral [] Actively dying [] Patient sleeping [] Family support [] [] Out of room [] Palliative care [] [] Receiving care in room [] Pre-surgical visit [] Trauma [] Long length of stay [x] ICU visit [] Other: Relational/Emotional Strength [] Patient feels connected with others/family/visitors/staff [] Distress [] Loneliness/isolation [] Abandonment Spirituality of Patient [] Person of [place] [] Attends Sikh of their [place] [] Believes in Prayer [] Reads Bible or Scientology materials [] There are Spiritual issues to be addressed Data Sme Interventions [x] Prayer [] Active listening [] Non-anxious presence [] Spiritual/emotional support [] Crisis/trauma care [] Spiritual counseling [] Bereavement support [] Provided bereavement packet [] Provided Bible/devotional materials [] Provided toy/stuffed animal, coloring book to patient or family member [] Provided Communion [] Anointing/[place] [] Salvation [x] Completed spiritual assessment [] Other: Impact on Illness or Injury [] Angry [] Fearful [] Anxious [] Often cries [] Exhaustion [] Unable to work [] Unable to attend yarsanism [] Unable to walk/stand [] Unable to read [] Unable to drive [] Unable to eat/drink [] Unable to sleep [] Unable to be with family [] Patient intubated [] Other: Summary Time spent with patient
[2020-04-01 10:11] LABS: Anion Gap 18.7 (5-19); Blood Urea Nitrogen 13 mg/dL (8-23); Calcium 8.4 mg/dL (8.5-10.5); Carbon Dioxide 20 mmol/L (22-29); Chloride 105 mmol/L (98-107); Glucose 80 mg/dL (65-115); Osmolality Calculated 289 mOsm/kg (285-295); Potassium 3.7 mmol/L (3.5-5.1); Sodium 140 mmol/L (136-145)
[2020-04-01] MEDS: chlorhexidine gluconate 0.12% Btl 473 mL 15 ML MUCOUS MEM ×2 (10:20→17:14)
[2020-04-01] MEDS: mupirocin oint 22 gm 1 APPLIC NASAL ×2 (10:22→17:14)
[2020-04-01] MEDS: oxyCODONE-APAP 5-325 mg Tablet PO (11:58)
[2020-04-01] MEDS: atorvastatin 40 mg Tablet PO (20:45)
[2020-04-01] MEDS: metoprolol tartrate 25 mg Tablet PO (22:12)
[2020-04-02] VITALS (12 sets, daily range): BP systolic 121–150; BP diastolic 62–80; PULSE 65–93; RESP 18–20; TEMP 36.5–36.9; O2SAT 93–96
--- NOTE | 2020-04-02 01:24 | PC.NURSE ---
Patient transferred to room 279-1. Report given to AURY Almanza.
--- NOTE | 2020-04-02 01:53 | PC.NURSE ---
Patient arrived under no distress from ICU via bed. Nothing of note was assessed. Patient while in bed, SpO2 is at 93-94% at rest with no O2.
[2020-04-02] MEDS: oxyCODONE-APAP 5-325 mg Tablet PO ×3 (03:36→21:08)
[2020-04-02 05:15] LABS: Basophils # 0.1 10^3/uL (0.0-0.1); Basophils % 0.7 %; Eosinophils # 0.3 10^3/uL (0.0-0.8); Eosinophils % 2.8 %; Hematocrit 32.2 % (42.0-52.0); Hemoglobin 10.3 g/dL (11.7-16.6); Lymphocytes # 1.8 10^3/uL (0.8-4.8); Lymphocytes % 16.8 %; Mean Corpuscular Hemoglobin 29.5 pg (28.0-34.0); Mean Corpuscular Volume 92.3 fL (80-94); Mean Platelet Volume 10.1 fL (7.4-10.4); Monocytes # 0.8 10^3/uL (0.2-0.9); Monocytes % 7.4 %; Neutrophils # 7.51 10^3/uL (1.8-7.7); Neutrophils % 71.4 %; Nucleated Red Blood Cells % 0 %; Platelet Count 285 10^3/cmm (130-400); Red Blood Count 3.49 10^6/uL (4.1-5.3); Red Cell Distribution Width 14.4 % (12.1-15.1); White Blood Count 10.5 10^3/uL (4.0-10.0)
[2020-04-02 05:25] LABS: Anion Gap 13.4 (5-19); Blood Urea Nitrogen 14 mg/dL (8-23); Carbon Dioxide 21 mmol/L (22-29); Chloride 105 mmol/L (98-107); Glucose 108 mg/dL (65-115); Osmolality Calculated 283 mOsm/kg (285-295); Potassium 3.4 mmol/L (3.5-5.1); Sodium 136 mmol/L (136-145)
--- NOTE | 2020-04-02 06:16 | PM.PN ---
Subjective Subjective: Interval history: Day #7 status post CABG x3. Postop day #2 status post dual-chamber pacemaker implantation. Asleep on rounds this morning. Nurses report uneventful night. Pacemaker appears to be functioning appropriately. Postoperative discomfort under good control. He is in very good spirits. He was transferred to [facility] last night. Vitals/I&O/Wt Last Vital Signs Temp 98.2 F 04/02/20 01:41 Pulse 83 04/02/20 01:41 Resp 18 04/02/20 03:36 BP 150/76 04/02/20 01:41 Pulse Ox 93 04/02/20 01:41 04/01/20 04/01/20 04/02/20 14:59 22:59 06:59 Intake Total 300 / 300 30 / 330 Output Total 1225 / 1225 900 / 2125 Balance -925 / -925 -870 / -1795 Weight last 48 hrs Weight 214 lb 1.6 oz Weight 209 lb Physical Exam Chest: COMMONS NORMALS: normal inspection of the chest (Surgical dressing is dry.) and normal palpation of entire chest wall (Chest wall stable.) Resp: COMMON NORMALS: No retractions, No use of accessory muscles and clear to auscultation bilaterally AUSCULTATION: clear to auscultation bilaterally Cardio: COMMON NORMALS: regular rate and regular rhythm RATE: regular rate RHYTHM: regular rhythm Extremity: OTHER: Trace of peripheral edema. Urinary Catheter Management^: Arce: Cath Placed During This Visit: yes Urinary Catheter Date of Insertion: 03/26/20 Urinary Catheter Time of Insertion: 07:16 Data : 04/02/20 04:54 04/02/20 04:54 A&P Assessment and plan (1) Status post aorto-coronary artery bypass graft: 1 week status post CABG and subsequent dual-chamber pacemaker implantation for persistent 2-1 AV heart block. Renal function remained stable. Medication adjustments and consideration for diuresis under the direction of Dr. Fields. Continue local wound care. Recommend initiating Betasept shower tomorrow. As Mr. Conde resides alone, he would benefit from skilled care or other arrangements to allow for appropriate oversight after discharge. I again greatly appreciate the expertise and oversight of Dr. Fields. Status: Acute Attestations Medical Necessity Statement*: 1 week status post CABG. 2 days status post dual-chamber pacemaker implantation. Time Spent in Patient Care: 16 - 35 minutes Coding Level of Care Code Acute Senior Gl Accountant for Haileeg Fwd Diagnoses Status post aorto-coronary artery bypass graft Z95.1
[2020-04-02] MEDS: vancomycin 1,500 MG/300 ML PIGGYBACK 200 MG IV ×2 (10:10→21:10)
[2020-04-02] MEDS: mupirocin oint 22 gm 1 APPLIC NASAL ×2 (10:10→17:01)
[2020-04-02] MEDS: lisinopril 10 mg Tablet 20 MG PO (10:11)
[2020-04-02] MEDS: amlodipine 10 mg Tablet PO (10:12)
[2020-04-02] MEDS: metoprolol tartrate 25 mg Tablet PO (10:12)
[2020-04-02] MEDS: aspirin 81 mg EC Tablet PO (10:12)
[2020-04-02] MEDS: clopidogrel 75 mg Tablet PO (10:12)
[2020-04-02] MEDS: chlorhexidine gluconate 0.12% Btl 473 mL 15 ML MUCOUS MEM ×2 (10:13→17:01)
--- NOTE | 2020-04-02 10:55 | P.PN_ITS ---
Subjective Subjective: Interval history: Patient has been transferred out of the ICU. He is doing well. No complaints of chest pain, shortness of breath or palpitations. His pacemaker is working appropriately. Vitals/I&O/Wt Last Vital Signs Temp 97.9 F 04/02/20 08:00 Pulse 93 04/02/20 08:00 Resp 18 04/02/20 10:20 BP 131/80 04/02/20 08:00 Pulse Ox 96 04/02/20 08:00 04/01/20 04/02/20 04/02/20 22:59 06:59 14:59 Intake Total 600 / 600 30 / 630 100 / 100 Output Total 1225 / 1225 900 / 2125 100 / 100 Balance -625 / -625 -870 / -1495 0 / 0 Weight last 48 hrs Weight 214 lb 1.6 oz Weight 209 lb Physical Exam Narrative: EXAM NARRATIVE: GENERAL: Patient is alert, awake and oriented x3. [] NECK: No jugular vein distension. [] HEENT: No cyanosis. No icterus. No pallor. [] HEART: Regular S1 and S2. No murmur, rub or gallop. [] LUNGS: Clear to auscultate bilaterally. [] ABDOMEN: Soft, nontender and nondistended. Positive bowel sounds. No guarding, rebound or tenderness. [] CENTRAL NERVOUS SYSTEM: Grossly nonfocal. [] EXTREMITIES: Lower extremities with no edema bilaterally. Pulses palpable in the lower extremities, both dorsalis pedis and posterior tibial. [] Urinary Catheter Management^: Arce: Cath Placed During This Visit: yes Urinary Catheter Date of Insertion: 03/26/20 Urinary Catheter Time of Insertion: 07:16 Data : 04/02/20 04:54 04/02/20 04:54 A&P Assessment and plan (1) STEMI (ST elevation myocardial infarction): Status: Acute (2) Coronary artery disease: Status: Acute (3) Hypertension: Status: Acute (4) Complete heart block: Status: Acute (5) YE (acute kidney injury): Status: Acute (6) Status post aorto-coronary artery bypass graft: Status: Acute Patient presented with acute ST elevation [place] involving RCA. Ostial to mid RCA was successfully revascularized using NARCISO x2. Patient had severe left main artery stenosis/LAD/LCx and Ramus stenosis. He underwent successful revascularization with CABGX3 by Dr Carmona on 03/26/2020. He is stable right now. Ambulating Patient had 2-1 AV block with heart rates dropping significantly. He is s/p placement of permanent pacemaker on monday. Pacemaker is capturing appropriately. Patient was started on Metoprolol 25mg BID yesterday. Uptitrated to 50mg BID today. Continue aspirin and Plavix. ECHO showed mildly reduced cardiac function Atrovastatin high intensity Continue Amlodipine 10mg and Lisinopril 20mg Daily Starting Lasix 20mg daily today Patient's recovery post CABG is going well. Attestations Medical Necessity Statement*: Care expected to cross 2 midnights. Patient s/p PCI/CABG/ Permanent pacemaker placement. Transferred out of the ICU last night. Coding Level of Care Code Acute Title Curative Specialist for Sujata Ramires Diagnoses STEMI (ST elevation myocardial infarction) I21.3 Coronary artery disease I25.10 Hypertension I10 Complete heart block I44.2 YE (acute kidney injury) N17.9 Status post aorto-coronary artery bypass graft Z95.1
[2020-04-02] MEDS: FUROsemide 20 mg Tablet PO ×2 (11:37→16:46)
[2020-04-02] MEDS: potassium chloride ER 10 mEq Tablet PO (11:37)
--- NOTE | 2020-04-02 13:54 | PC.OT ---
OT TREATMENT ATTEMPTED IN A.M. PATIENT REPORTED HE WAS TOO TIRED TO PARTICIPATE. OT TREATMENT ATTEMPTED IN P.M. PATIENT DECLINES ADLS AT THIS TIME; IS AGREEABLE TO SHOWER TOMORROW. DECLINES UE EXERCISES AND DOES DEMONSTRATE HIS PACEMAKER EXERCISES STATING THAT HE HAS BEEN DOING THESE FREQUENTLY.
--- NOTE | 2020-04-02 16:37 | PC.SOCIAL ---
*IMM* Updated IMM Unable to be gave to Patient at this time. Will be leaving Monday likely to [facility].
[2020-04-02] MEDS: diphenhydrAMINE 25 mg Capsule PO (21:08)
[2020-04-02] MEDS: atorvastatin 40 mg Tablet PO (21:09)
[2020-04-02] MEDS: metoprolol tartrate 25 mg Tablet 50 MG PO (21:09)
[2020-04-03] VITALS (10 sets, daily range): BP systolic 114–166; BP diastolic 62–74; PULSE 71–108; RESP 18–20; TEMP 36.4–36.9; O2SAT 93–99
--- NOTE | 2020-04-03 03:25 | PC.NURSE ---
Pt c/o burning with urination. States he's not sure he's emptying his bladder. Bladder Scan reveals 339 mls retained. Pt states he does not want to be cathed again, wants to continue to try to void. Will recheck for residual at 0500.
[2020-04-03] MEDS: oxyCODONE-APAP 5-325 mg Tablet PO (05:30)
--- NOTE | 2020-04-03 07:29 | P.PN_ITS ---
Subjective Subjective: Interval history: Postop day #8 status post CABG x3 and postop day #3 status post dual-chamber pacemaker implantation. Uneventful night. Nurses report no concerns. Modest hypokalemia noted on most recent BMP. Still a bit hypertensive with a systolic pressure of 166 this morning. Sternotomy discomfort under good control. He does complain of difficulty with urination and states he takes an [id number] beta sterol at home. Mild hypokalemia noted on recent BMP. Intake and output negative approximately 1 L past 48 hours. Vitals/I&O/Wt Last Vital Signs Temp 98.4 F 04/03/20 05:24 Pulse 80 04/03/20 06:00 Resp 18 04/03/20 05:30 BP 166/70 04/03/20 05:24 Pulse Ox 94 04/03/20 05:24 04/02/20 04/03/20 04/03/20 22:59 06:59 14:59 Intake Total 60 / 580 30 / 610 Output Total 625 / 725 600 / 1325 Balance -565 / -145 -570 / -715 Weight last 48 hrs Weight 214 lb 1.6 oz Physical Exam Chest: COMMONS NORMALS: normal inspection of the chest (Chest wall is stable. Dressings are dry.) Resp: COMMON NORMALS: normal respiratory effort, No use of accessory muscles and clear to auscultation bilaterally AUSCULTATION: clear to auscultation bilaterally Cardio: COMMON NORMALS: regular rate, regular rhythm and S1 normal heart sound present RATE: regular rate RHYTHM: regular rhythm HEART SOUNDS: S1 normal heart sound present Extremity: OTHER: Edema mostly resolved. Urinary Catheter Management^: Arce: Cath Placed During This Visit: yes Urinary Catheter Date of Insertion: 03/26/20 Urinary Catheter Time of Insertion: 07:16 Data : 04/02/20 04:54 04/02/20 04:54 A&P Assessment and plan (1) Status post aorto-coronary artery bypass graft: 1. Week status post CABG x3 and postop day #3 status post dual-chamber pacemaker implantation. Recommend Betasept shower this morning and daily. Tamsulosin 0.4 mg twice daily, first dose now. I recommend continuing at d ischarge to SNF. KCl IV piggyback Current plans are for discharge to SNF. May discharge at discretion of Dr. Fields. Wound care instructions: May shower daily. Dry incisions completely afterwards. Cover as needed. No swimming or tub baths x2 weeks. No lifting more than 5 pounds with upper extremities for the next 6 weeks. Report fever and redness, drainage, increased pain along incision. Status: Acute Attestations Medical Necessity Statement*: Status post CABG and dual-chamber pacemaker implantation Time Spent in Patient Care: 16 - 35 minutes Coding Level of Care Code Acute Upset Welding Machine Operator for Sujata Fwanne-marie Diagnoses Status post aorto-coronary artery bypass graft Z95.1
[2020-04-03] MEDS: aspirin 81 mg EC Tablet PO (08:58)
[2020-04-03] MEDS: potassium chloride ER 10 mEq Tablet PO (08:59)
[2020-04-03] MEDS: FUROsemide 20 mg Tablet PO (08:59)
[2020-04-03] MEDS: clopidogrel 75 mg Tablet PO (08:59)
[2020-04-03] MEDS: tamsulosin 0.4 mg Capsule PO ×2 (08:59→18:25)
[2020-04-03] MEDS: lisinopril 20 mg Tablet 40 MG PO (08:59)
[2020-04-03 09:00] LABS: Vancomycin Trough 28.3 ug/mL (10-15)
[2020-04-03] MEDS: chlorhexidine gluconate 0.12% Btl 473 mL 15 ML MUCOUS MEM ×2 (09:00→18:26)
[2020-04-03] MEDS: mupirocin oint 22 gm 1 APPLIC NASAL ×2 (09:00→18:25)
[2020-04-03] MEDS: amlodipine 10 mg Tablet PO (09:00)
[2020-04-03] MEDS: lidocaine 1% 5 ML in potassium chloride premix 100 ML 25 ML IV (09:00)
[2020-04-03] MEDS: metoprolol tartrate 25 mg Tablet 50 MG PO ×2 (09:10→20:27)
--- NOTE | 2020-04-03 13:21 | PM.PN ---
Subjective Subjective: Interval history: Patient is doing well. He complains of chest pain, shortness of breath or palpitations. His blood pressure has been fluctuating and is staying high. (Hospital Course: 84-year-old man with past medical history of coronary artery disease had presented to the hospital with inferior wall ST elevation [place] on 03/17/2020. He underwent successful emergent revascularization with DESx2. He had severe multivessel disease in the left system including left main disease. He developed complete heart block after revascularization of RCA. This resolved however he had residual 2-1 AV block with significant bradycardia. He underwent CABG on 03/26/[address] Carmona. After complete revascularization, his heart rhythm did not return to normal sinus rhythm and AV block persisted with significant bradycardia that led to placement of dual-chamber plate pacemaker on 03/31/2020. Patient is stable now. His blood pressure is elevated for which antihypertensive regimen has been uptitrated. We will watch him for 1 more day. If stays stable will be transferred out tomorrow) Vitals/I&O/Wt Last Vital Signs Temp 98.2 F 04/03/20 11:51 Pulse 74 04/03/20 11:51 Resp 18 04/03/20 11:51 BP 120/71 04/03/20 11:51 Pulse Ox 93 04/03/20 11:51 04/02/20 04/03/20 04/03/20 22:59 06:59 14:59 Intake Total 60 / 580 30 / 610 300 / 300 Output Total 625 / 725 600 / 1325 300 / 300 Balance -565 / -145 -570 / -715 0 / 0 Weight last 48 hrs Weight 214 lb 1.6 oz Physical Exam Narrative: EXAM NARRATIVE: GENERAL: Patient is alert, awake and oriented x3. [] NECK: No jugular vein distension. [] HEENT: No cyanosis. No icterus. No pallor. [] HEART: Regular S1 and S2. No murmur, rub or gallop. [] LUNGS: Clear to auscultate bilaterally. [] ABDOMEN: Soft, nontender and nondistended. Positive bowel sounds. No guarding, rebound or tenderness. [] CENTRAL NERVOUS SYSTEM: Grossly nonfocal. [] EXTREMITIES: Lower extremities with no edema bilaterally. Pulses palpable in the lower extremities, both dorsalis pedis and posterior tibial. [] Urinary Catheter Management^: Arce: Cath Placed During This Visit: yes Urinary Catheter Date of Insertion: 03/26/20 Urinary Catheter Time of Insertion: 07:16 Data : 04/02/20 04:54 04/02/20 04:54 A&P Assessment and plan (1) STEMI (ST elevation myocardial infarction): Status: Acute (2) Coronary artery disease: Status: Acute (3) Hypertension: Status: Acute (4) Complete heart block: Status: Acute (5) YE (acute kidney injury): Status: Acute (6) Status post aorto-coronary artery bypass graft: Status: Acute Patient presented with acute ST elevation [place] involving RCA. Ostial to mid RCA was successfully revascularized using NARCISO x2. Patient had severe left main artery stenosis/LAD/LCx and Ramus stenosis. He underwent successful revascularization with CABGX3 by Dr Carmona on 03/26/2020. He is stable right now. Ambulating Patient had 2-1 AV block with heart rates dropping significantly. He is s/p placement of permanent pacemaker on monday. Pacemaker is capturing appropriately. On metoprolol 50 mg twice daily now Continue aspirin and Plavix. ECHO showed mildly reduced cardiac function Atrovastatin high intensity Continue Amlodipine 10mg. Blood pressure has been high. Uptitrated lisinopril today to 40 mg daily. Continue Lasix 20 mg daily. Patient's recovery post CABG is going well. Will watch patient's blood pressure as they have been high and medications uptitrated today and will transfer to SNF tomorrow. Attestations Medical Necessity Statement*: Care expected to cross 2 midnights. Patient is s/p PCI/CABG/dual-chamber pacemaker placement. Blood pressure is elevated today. Medications uptitrated, will watch for today and if stable will be discharged tomorrow. Coding Level of Care Code Acute Chief Executive for Sujata Ramires Diagnoses STEMI (ST elevation myocardial infarction) I21.3 Coronary artery disease I25.10 Hypertension I10 Complete heart block I44.2 YE (acute kidney injury) N17.9 Status post aorto-coronary artery bypass graft Z95.1
[2020-04-03] MEDS: chlorhexidine gluconate 4% Btl 118 mL 1 APPLIC TOPICAL (18:25)
[2020-04-03] MEDS: atorvastatin 40 mg Tablet PO (20:27)
[2020-04-04 03:39] VITALS: BP 128/64; PULSE 78; RESP 20; TEMP 36.9; O2SAT 96
[2020-04-04 04:05] VITALS: RESP 18
[2020-04-04] MEDS: oxyCODONE-APAP 5-325 mg Tablet PO (04:05)
[2020-04-04 06:00] VITALS: PULSE 73
[2020-04-04 08:00] VITALS: BP 117/70; BP 118/68; PULSE 74; PULSE 96; RESP 18; TEMP 35.9; TEMP 36.5; O2SAT 94; O2SAT 96
[2020-04-04] MEDS: amlodipine 10 mg Tablet PO (08:16)
[2020-04-04] MEDS: aspirin 81 mg EC Tablet PO (08:16)
[2020-04-04] MEDS: metoprolol tartrate 25 mg Tablet 50 MG PO (08:16)
[2020-04-04] MEDS: FUROsemide 20 mg Tablet PO (08:16)
[2020-04-04] MEDS: tamsulosin 0.4 mg Capsule PO (08:16)
[2020-04-04] MEDS: lisinopril 20 mg Tablet 40 MG PO (08:16)
[2020-04-04] MEDS: clopidogrel 75 mg Tablet PO (08:16)
[2020-04-04] MEDS: potassium chloride ER 10 mEq Tablet PO (08:16)
[2020-04-04] MEDS: chlorhexidine gluconate 0.12% Btl 473 mL 15 ML MUCOUS MEM (08:21)
[2020-04-04] MEDS: mupirocin oint 22 gm 1 APPLIC NASAL (08:21)
[2020-04-04] MEDS: chlorhexidine gluconate 4% Btl 118 mL 1 APPLIC TOPICAL (08:22)
--- NOTE | 2020-04-04 09:08 | PM.DCS ---
Discharge Providers Date of Admission: 03/18/20 15:03 Date of Discharge: April 04, 2020 Attending Provider at Admission: Yousif Fields M.D Attending Provider at Discharge: Yousif Fields M.D Diagnoses at Discharge Discharge Diagnosis (1) STEMI (ST elevation myocardial infarction): Status: Acute (2) Coronary artery disease: Status: Acute (3) Hypertension: Status: Acute (4) Complete heart block: Status: Acute Permanent problem details: Resolved. Developed 2:1 AV block for which dual chamber pacemaker was placed (5) YE (acute kidney injury): Status: Acute Permanent problem details: Improved. (6) Status post aorto-coronary artery bypass graft: Status: Acute Reason for Visit Reason for Visit: CHEST PAIN Hospital Course Hospital Course 84-year-old man with past medical history of coronary artery disease had presented to the hospital with inferior wall ST elevation [place] on 03/18/2020. He underwent successful emergent revascularization of RCA with DESx2. He had severe multivessel disease in the left system including left main disease. He developed complete heart block after revascularization of RCA. This resolved however he had residual 2-1 AV block with significant bradycardia. He underwent CABG on 03/26/[address] Carmona. After complete revascularization, his AV block persisted with significant bradycardia that led to placement of dual-chamber plate pacemaker on 03/31/2020. Patient is stable now. His blood pressure was eventually controlled with lisinopril, amlodipine and metoprolol. He will be transferred to facility for recovery post CABG as he lives alone. Physical Exam Narrative: EXAM NARRATIVE: GENERAL: Patient is alert, awake and oriented x3. [] NECK: No jugular vein distension. [] HEENT: No cyanosis. No icterus. No pallor. [] HEART: Regular S1 and S2. No murmur, rub or gallop. [] LUNGS: Clear to auscultate bilaterally. [] ABDOMEN: Soft, nontender and nondistended. Positive bowel sounds. No guarding, rebound or tenderness. [] CENTRAL NERVOUS SYSTEM: Grossly nonfocal. [] EXTREMITIES: Lower extremities with no edema bilaterally. Pulses palpable in the lower extremities, both dorsalis pedis and posterior tibial. [] Urinary Catheter Management^: Arce: Cath Placed During This Visit: yes Urinary Catheter Date of Insertion: 03/26/20 Urinary Catheter Time of Insertion: 07:16 Discharge Data Data Completed and Pending: Completed Studies During Hospitalization Category Date Time Status IOS SOFTWARE ENGINEER request for service Stat Exams 03/18/20 07:39 Completed CXRP [XR chest 1V portable [id number]] S tat Exams 03/29/20 10:38 Completed XR chest 1V [id number] Routine Exams 04/01/20 06:00 Completed XR chest 1V richie ble [id number] Routine Exams 03/24/20 05:24 Completed XR chest 1V richie ble [id number] Routine Exams 03/26/20 08:27 Completed XR chest 1V richie ble [id number] Routine Exams 03/27/20 06:00 Completed XR chest 1V richie ble [id number] Routine Exams 03/28/20 06:00 Completed XR chest 1V richie ble [id number] Routine Exams 03/28/20 10:46 Completed XR chest 1V richie ble [id number] Routine Exams 03/30/20 06:00 Completed XR chest 1V richie ble [id number] Stat Exams 03/21/20 15:53 Completed XR chest 1V richie ble [id number] Stat Exams 03/18/20 07:33 Completed CV echo complete* [id number] Urgent Ultrasound 03/18/20 12:45 [place] [id number] Routi ne Ultrasound 03/23/20 11:30 Completed Pending at discharge Category Date Time Status COVID [SARS Covid -2 Antigen] Routin e Lab 04/04/20 08:42 Uncollected Vitals: Last Vital Signs Temp 96.7 F L 04/04/20 08:00 Pulse 96 04/04/20 08:00 Resp 18 04/04/20 08:00 BP 117/70 04/04/20 08:00 Pulse Ox 94 04/04/20 08:00 Discharge Plan Discharge Patient Disposition: Xfer SNF Condition: Stable Prescriptions: New atorvastatin 40 mg Tablet 40 mg PO BEDTIME 90 Days Qty: 90 RF: 3 clopidogrel 75 mg Tablet 75 mg PO DAILY Qty: 90 RF: 3 aspirin 81 mg Tablet,Delayed Release (Dr/Ec) 81 mg PO DAILY Qty: 90 RF: 3 amlodipine 10 mg Tablet 10 mg PO DAILY Qty: 90 RF: 3 furosemide 20 mg Tablet 20 mg PO DAILY@0800 Qty: 90 RF: 3 lisinopril 40 mg tablet 40 mg PO DAILY Qty: 90 RF: 3 metoprolol tartrate 50 mg tablet 50 mg PO BID@0900,2100 Qty: 120 RF: 3 potassium chloride 10 mEq Tablet Extended Release 10 meq PO DAILY Qty: 60 RF: 0 oxycodone-acetaminophen 5-325 mg Tablet 1 tab PO Q6H PRN (Reason: Moderate To Severe Pain) Qty: 24 RF: 0 tamsulosin 0.4 mg Capsule 0.4 mg PO BID Qty: 120 RF: 3 Brielle-Hex 4 % Liquid 1 applic topical DAILY 21 Days Qty: 100 RF: 0 Discontinued aspirin 81 mg Tablet,Delayed Release (Dr/Ec) 81 mg PO DAILY RF: 0 Discharge Orders: Discharge Order (Routine); Ordered 04/04/20 Ordered By: Yousif Fields Other Ambulatory Orders: Basic Metabolic Panel (Routine) Timeframe: 2 Weeks Facility: [facility] - Location: Lab - Main Lab Ordered By: Yousif Fields Referrals: Yousif Fields M.D [Physician] - 1 month Lencho Carmona MD [Physician] - 2 weeks Janie Irwin FNP [Nurse Practitioner] - 7-10 days Discharge Diet: Cardiac Discharge Activity: As per PT/OT instructions Patient Instructions: Coronary Artery Bypass Graft (DC), Coronary Angioplasty (DC) Discharge Attestations Time Spent in Discharge Care*: greater than 30 min Quality Metrics Clinical Quality Measures During this hospital stay, did patient experience: None Coding Level of Care Code Acute Corrugated Sheet Material Sheeter for Haileeg Fwd Diagnoses STEMI (ST elevation myocardial infarction) I21.3 Coronary artery disease I25.10 Hypertension I10 Complete heart block I44.2 YE (acute kidney injury) N17.9 Status post aorto-coronary artery bypass graft Z95.1
--- NOTE | 2020-04-04 10:00 | PC.SOCIAL ---
IMM Updated Updated pt on Pg 2 IMM. No questions voiced. Provided pt a copy. Signed, dated, & timed copy in chart.
--- NOTE | 2020-04-04 10:36 | PC.NURSE ---
Per Samra York, RN on behalf of Case Management, [facility] is requesting that the patient's Oxycodone Rx be e-scribed to [facility] in [place], [place] d/t the facility being out of stock of Oxycodone-APAP. I called and spoke with Dr. Melo, physician banker mason for Dr. Fields and requested that he e-scribe that Rx to [facility]. He is in agreement and states he will e-scribe that now and call if there are any issues.
[2020-04-04 10:57] LABS: SARS Covid-2 Antigen Negative (Negative)
[2020-04-04 12:00] VITALS: BP 112/70; PULSE 70; RESP 18; TEMP 36.3; O2SAT 97
--- NOTE | 2020-04-04 12:42 | PC.NURSE ---
The Oxycodone-APAP 5-325 mg Rx were not able to be e-scribed and the pharmacy closed prior to getting it resolved. We spoke with [facility] and they were not willing to accept the patient if he had no pain medication. I spoke with Myron in pharmacy and we agreed to [facility] the [facility] with Oxycodone-APAP 5-325 mg 8 tablets to get him through until they are able to fill the Rx on Monday, 04/06. He placed an order in the [facility] and I pulled 8 tablets from the Pyx[facility], witnessed by Octavia Grider LPN and Brayan Haas RN. We placed the tablets in an envelope and gave them to the bus driver school of the [employer] van. I called and spoke with Dr. Melo and he is in agreement with this. I spoke with Aranza Schofield, RN warp knitting machine operator and informed her of this as well. I called [facility] and spoke with [place] and informed them the amount and dose I sent with the bus driver school. He verbalizes understanding and states he will verify the count upon patient's arrival.
[2020-04-04 13:28] VITALS: BP 112/70; PULSE 70; RESP 18; TEMP 36.3; O2SAT 97
== END 2020-04-04 11:45 | disposition skilled nursing facility (03) | DRG 231 ==
LOC: ER 07:46 → CCL 07:51 → CSU 15:13 → ICU 03-26 07:12 → MEDSURG 04-02 01:00
PROVIDERS: Nurse Practitioner Family; Thoracic Surgery (Cardiothoracic Vascular Surgery); Admitting Provider Internal Medicine; Emergency Provider Family Medicine; Visit Provider Internal Medicine
PROC: 027035Z Dilation of Coronary Artery, One Artery with Two Drug-eluting Intraluminal Devices, Percutaneous Approach (ICD-10-PCS; principal; 2020-03-18 08:00)
PROC: 027035Z Dilation of Coronary Artery, One Artery with Two Drug-eluting Intraluminal Devices, Percutaneous Approach (ICD-10-PCS; 2020-03-18 08:00)
PROC: 02100Z9 Bypass Coronary Artery, One Artery from Left Internal Mammary, Open Approach (ICD-10-PCS; principal; 2020-03-26 07:00)
PROC: 0JH606Z Insertion of Pacemaker, Dual Chamber into Chest Subcutaneous Tissue and Fascia, Open Approach (ICD-10-PCS; principal; 2020-03-31 16:00)
DX: T82.855A Stenosis of coronary artery stent, initial encounter (principal); I21.19 ST elevation (STEMI) myocardial infarction involving other coronary artery of inferior wall; N17.9 Acute kidney failure, unspecified; I44.2 Atrioventricular block, complete; I31.9 Disease of pericardium, unspecified; I97.190 Other postprocedural cardiac functional disturbances following cardiac surgery; R00.1 Bradycardia, unspecified; Z95.1 Presence of aortocoronary bypass graft; I25.10 Atherosclerotic heart disease of native coronary artery without angina pectoris; I10 Essential (primary) hypertension; E87.6 Hypokalemia; Z79.82 Long term (current) use of aspirin; Z95.5 Presence of coronary angioplasty implant and graft; I25.2 Old myocardial infarction; Y84.8 Other medical procedures as the cause of abnormal reaction of the patient, or of later complication, without mention of misadventure at the time of the procedure; Y92.009 Unspecified place in unspecified non-institutional (private) residence as the place of occurrence of the external cause
CPT/HCPCS: 12345; 36415; 36416; 36430; 36592; 36600; 51702; 71045; 76000; 80048; 80051; 80053; 80061; 80076; 80202; 81003; 82330; 82803; 82805; 82947; 82962; 83605; 83735; 83880; 84439; 84443; 84484; 85014; 85018; 85025; 85347; 85610; 85730; 86850; 86900; 86920; 87426; 87635; 93005; 93306; 93454; 93970; 94002; 94640; 94799; 96365; 96372; 97110; 97116; 97161; 97163; 97167; 97530; 97535; 99282; A4570; C1725; C1769; C1779; C1786; C1874; C1887; C1894; C1898; C9606; J0360; J0461; J0610; J0690; J1250; J1644; J1815; J1940; J2001; J2150; J2250; J2270; J2370; J2440; J2704; J2720; J3010; J3246; J3370; J3475; J3480; J3490; J7030; J7040; J7050; P9016; P9041; Q9967